=== PATIENT | female | born 1970 | race Two or more races ===

== ENCOUNTER 2021-06-18 09:30 | Outpatient (REF) | payer MEDICAID, SELFPAY ==
--- NOTE | ~2021-06-18 | XR_ITS ---
EXAMINATION: XR SHOULDER, RIGHT CLINICAL INFORMATION: Right shoulder pain. Primary osteoarthritis. COMPARISON: Normal right shoulder x-ray 02/10/2007 TECHNIQUE: AP external rotation, Grashey, scapular Y, and axillary views of the right shoulder. FINDINGS: There is loss of the right glenohumeral joint space without bony erosive changes. No acute fracture, dislocation or subluxation is seen. Mild loss of the AC joint space is seen with periarticular spurring. There is a small enthesophyte along the right greater tuberosity. The soft tissues are normal. XR/XR shoulder RT min 2V IMPRESSION: Mild degenerative changes right shoulder joint without acute fracture or dislocation.
== END 2021-06-18 09:31 | disposition home or self-care (01) ==
LOC: HO.XRAY 09:30
PROVIDERS: PCP Nurse Practitioner Primary Care; Visit Provider Emergency Medicine
DX: M19.011 Primary osteoarthritis, right shoulder (principal)
CPT/HCPCS: 73030

== ENCOUNTER 2021-07-17 10:28 | Outpatient (REF) | payer MEDICAID, SELFPAY ==
--- NOTE | ~2021-07-17 | MR_ITS ---
EXAMINATION: MR SHOULDER WITHOUT CONTRAST, RIGHT CLINICAL INFORMATION: Right shoulder pain. Patient reports decreased range of motion, fell 8 months ago. COMPARISON: XR right shoulder 06/18/2021. TECHNIQUE: MRI of the shoulder without contrast was performed on a high-field scanner. FINDINGS: ROTATOR CUFF: There is a complete or near-complete full-thickness insertional tear of the supraspinatus tendon measuring 2.9 cm transverse. This is difficult to define and measure on the sagittal sequence. The tear likely extends to the anterior fibers of the infraspinatus tendon. There is a full-thickness insertional tear of the distal subscapularis tendon measuring 1.3 cm transverse. This is also difficult to define and measure on the sagittal sequence. The teres minor tendon is intact. There is a small subacromial-subdeltoid bursal effusion. There is mild fatty atrophy of the supraspinatus, infraspinatus, and subscapularis muscles. There is mild edema in the supraspinatus muscle which may be reactive or a mild strain. BICEPS: Completely torn and retracted. CORACOACROMIAL ARCH: The undersurface of the acromion is curved with no subacromial spur. There is mild osteoarthritis of the acromioclavicular joint. LABRUM/CAPSULE: There is diffuse superior labral degeneration, fraying, and tearing. The anterior and posterior labrum are grossly intact. There is inferior capsular thickening. There is patchy intermediate signal abnormality. This is most prominent on the humeral side of the inferior capsule. There is a focal full-thickness tear in the posterior-humeral side of the inferior capsule. GLENOHUMERAL JOINT/MARROW: There are patchy areas of mild cartilage thinning in the glenohumeral joint. There is a curvilinear low signal intensity structure with adjacent intermediate signal intensity in the posterosuperior glenohumeral joint. The appearance suggests an osteochondral fragment. The donor site is uncertain although there is some blunting and irregularity of the posterosuperior margin of the glenoid. MR/MR shoulder RT wo con IMPRESSION: 1. Large complete or near-complete full-thickness insertional tear of the supraspinatus tendon which may extend to the anterior fibers of the infraspinatus tendon. Mild fatty atrophy of the supraspinatus and infraspinatus muscles. Mild edema in the supraspinatus muscle may be reactive or a mild strain. 2. Full-thickness insertional tear of the distal subscapularis tendon. Mild fatty atrophy of the subscapularis muscle. 3. Completely torn and retracted long head of the biceps tendon. 4. Mild osteoarthritis of the acromioclavicular joint. 5. Superior labral degeneration, fraying, and tearing. 6. Inferior capsular thickening, edema, and focal full-thickness tear which may be posttraumatic. 7. Mild glenohumeral arthrosis. Possible osteochondral fragment in the posterosuperior glenohumeral joint. If this is a fragment, donor site is uncertain although there is some blunting and irregularity of the posterosuperior margin of the glenoid. Consider CT scanning for further evaluation.
== END 2021-07-17 10:29 | disposition home or self-care (01) ==
LOC: HO.MRI 10:28
PROVIDERS: Visit Provider Emergency Medicine
DX: M19.011 Primary osteoarthritis, right shoulder (principal); M25.511 Pain in right shoulder
CPT/HCPCS: 73221

== ENCOUNTER → 2021-08-08 14:53 | Outpatient (BNVA) | payer MEDICAID, SELFPAY | PROVIDERS: PCP Nurse Practitioner Primary Care; Visit Provider Physician Assistant | DX: M75.101 Unspecified rotator cuff tear or rupture of right shoulder, not specified as traumatic (principal); M25.511 Pain in right shoulder; Z91.81 History of falling | CPT/HCPCS: 99202 ==

== ENCOUNTER 2021-09-02 14:06 | Outpatient (REF) | payer MEDICAID, SELFPAY ==
--- NOTE | ~2021-09-02 | CT_ITS ---
EXAMINATION: CT SHOULDER WITHOUT CONTRAST, RIGHT CLINICAL INFORMATION: Strain of muscle/fascia/tendon. COMPARISON: Multiple priors, most recent right shoulder MRI dated 07/17/2021. TECHNIQUE: Contiguous axial CT images of the right shoulder were obtained without contrast. Coronal and sagittal reformats were provided and reviewed. This CT examination was performed using dose optimization techniques as appropriate, variously including the following: *Automated exposure control *Adjustment of mA and/or kV according to patient size (this includes techniques or standardized protocols for targeted exams where dose is matched to indication/reason for exam; i.e. extremities or head) *Use of iterative reconstruction technique DLP: 542 mGy-cm FINDINGS: No acute fracture or subluxation. The humeral head is well seated within the glenoid. No osteochondral fragment or associated donor site. No concerning lytic or blastic osseous lesion. Minimal glenohumeral joint space narrowing with tiny marginal osteophytes. Mild acromioclavicular joint space narrowing with small marginal osteophytes. No abnormal soft tissue mass or fluid collection. No significant joint effusion. Rotator cuff tendon tears are better evaluated on the recent MRI. Otherwise, the visualized muscles and tendons are grossly intact. The visualized right lung is clear. CT/CT shoulder RT wo con IMPRESSION: 1. No osteochondral fragment or associated donor site. 2. Mild acromioclavicular and minimal glenohumeral osteoarthritis, similar when compared to the prior MRI. 3. Rotator cuff tendon tears better evaluated on the recent MRI.
== END 2021-09-02 14:07 | disposition home or self-care (01) ==
LOC: HO.CT 14:06
PROVIDERS: Visit Provider Nurse Practitioner Primary Care
DX: M24.111 Other articular cartilage disorders, right shoulder (principal); M25.511 Pain in right shoulder; S46.219A Strain of muscle, fascia and tendon of other parts of biceps, unspecified arm, initial encounter
CPT/HCPCS: 73200

== ENCOUNTER 2022-05-07 12:00 | Outpatient (RCR) | payer MEDICAID, SELFPAY | END 2022-05-15 12:44 | disposition home or self-care (01) | LOC: HO.PT 12:00 | PROVIDERS: PCP Nurse Practitioner Primary Care; Visit Provider Nurse Practitioner Primary Care | DX: M25.511 Pain in right shoulder (principal) | CPT/HCPCS: 97110; 97162 ==

== ENCOUNTER 2023-05-31 11:07 | Emergency (ER) | payer MEDICAID, SELFPAY ==
[2023-05-31 11:14] VITALS: BP 147/82; BP 164/98; PULSE 112; PULSE 84; RESP 16; TEMP 37.2; O2SAT 93; O2SAT 98; BMI 37.7
--- NOTE | 2023-05-31 11:15 | ED_ITS ---
HPI - Extremity Injury (Upper) General Chief Complaint: Extremity Injury, Upper Stated Complaint: L THUMB BLISTER/SWELLING,?'S INFECTION Time Seen by Provider: 05/31/23 11:13 Source: patient, EMS, RN notes reviewed and old records reviewed Mode of arrival: EMS History of Present Illness HPI narrative: 52-year-old female with no significant past medical history presenting to the ED complaining of suspected infection to left thumb s/p picking at open skin 3 days ago. Admits does a lot of skin picking due to anxiety and noted large painful blister with swelling and decreased ROM. Denies injury to area, drainage, fever/chills Related Data Previous Rx's Medication Instructions Recorded cephalexin 500 mg capsule 500 mg PO QID 7 days #28 caps 05/31/23 doxycycline hyclate 100 mg tablet 100 mg PO BID 7 days #14 tabs 05/31/23 Allergies Allergy/AdvReac Type Severity Reaction Status Date / Time No Known Allergies Allergy Verified 05/31/23 11:21 Review of Systems Review of Systems: Constitutional: No Fever, No Chills ENT/Mouth: No Ear Pain, No Nasal Congestion, No sore throat, No Rhinorrhea, No Swallowing Difficulty Cardiovascular: No Chest Pain, No SOB Respiratory: No Cough, No Sputum, No Wheezing Gastrointestinal: No Nausea, No Vomiting, No Diarrhea, No Constipation, No Abdominal pain Musculoskeletal: +joint pain, No Myalgias, +Joint Swelling Skin: + Skin Lesions, No rash Neuro: No Weakness, No Numbness, No Paresthesias Yes all other systems are reviewed and are negative Constitutional: Constitutional: Reports as per [facility] Past Medical History Attestation statement: The following information was validated with the patient. Source: old records reviewed Surgical History History of ear surgery Hx of section Hx of cholecystectomy Hx of hysterectomy Family History Family History Father Diabetes Hypertension Mother No problems noted. Social History Social History Advance Directives: No Physical Exam Vital Signs: Vital Signs: Last Vital Signs Temp 99 F 05/31/23 11:14 Pulse 84 05/31/23 11:14 Resp 16 05/31/23 11:14 BP 147/82 H 05/31/23 11:14 Pulse Ox 93 05/31/23 11:14 O2 Del Method Room Air 05/31/23 11:14 BMI result Body Mass Index 37.7 Const: General: cooperative, healthy appearing and no acute distress Orientation/consciousness: patient oriented x3 Limitations: no limitations HEENT: Head: Yes normal to inspection and Yes atraumatic Ears: hearing grossly normal bilaterally General nose exam: Normal external nose present Face and sinus: Yes normal facial exam Eyes: General: appearance normal, both eyes and all related structures EOM: EOMs intact bilaterally Neck: Neck: Yes normal visual inspection and Yes no meningeal signs Resp: Effort & Inspection: normal respiratory effort and no respiratory distress Auscultation: clear to auscultation bilaterally Cardio: Rate: regular rate Heart sounds: S1 normal heart sound present and S2 normal heart sound present Peripheral pulses: Peripheral pulses 2+ throughout Skin: Rashes: no rashes Neuro: General: patient oriented x3, tone normal and no meningeal signs Cranial nerves: Yes CN's II-XII intact bilaterally Gait exam (Neuro): Normal gait present Extrem: Other: Please refer to images above of left hand. Hematoma with fluctuance noted to 1st digit PIP with surrounding erythema extending to the thenar eminence. Limited ROM to digit secondary to pain/swelling. No warmth. No crepitus. No induration or pointing. General: Yes normal to inspection Course Course Course Narrative: -1255--no leukocytosis. CRP mildly elevated >I&D performed at bedside, on re-evaluation patient with mild lymphangitis extending to distal forearm, marked with marker. Discussed at length return if line keeps spreading. Patient has not yet been on antibiotics, abscess/hematoma drained, no indication for admission at this time Results discussed with patient including worrisome signs and symptoms and strict return precautions, and when to return to the emergency department. They v erbalized understanding and feel safe for discharge at this time. Medications Administered Discontinued Medications Generic Name Dose Route Start Last Admin Trade Name Freq PRN Reason Stop Dose Admin Cephalexin HCl 500 mg 05/31/23 12:58 05/31/23 13:08 Cephalexin 500 Mg Capsule PO 05/31/23 12:59 500 mg ONCE ONE Administration Doxycycline Monohydrate 100 mg 05/31/23 12:58 05/31/23 13:08 Doxycycline Monohydrate 100 Mg Capsule PO 05/31/23 12:59 100 mg ONCE ONE Administration Lidocaine HCl 5 ml 05/31/23 12:25 05/31/23 12:34 Lidocaine Hcl 1 % Mpf 5 Ml Vial INFILTRATI 05/31/23 12:26 5 ml ONCE ONE Administration Medical Decision Making Medical Decision Making [facility] Narrative: 52-year-old female with no significant past medical history presenting to the ED complaining of suspected infection to left thumb s/p picking at open skin 3 days ago. On exam vital signs stable, afebrile, NAD/nontoxic appearing with physical exam as noted above, please refer to images. Concern for infected hematoma vs abscess and cellulitis. Lower suspicion for septic joint/arthritis or osteomyelitis at this time. Low concern for tenosynovitis Plan: Labs, I & D, orthopedic hand follow-up Please refer to course for remaining clinical decision making, interpretation of labs/imaging results, and discussions with consultants and/or family members. Differential Diagnosis Differential Diagnoses: The differential diagnosis associated with the presentation includes As above Admission/Observation Consideration of admission/observation: Escalation of care including admission/observation considered Lab Data [facility] Lab Attestation statement: I reviewed the patient's lab results. 05/31/23 11:36 05/31/23 11:36 Labs: Lab Results 05/31/23 05/31/23 05/31/23 Range/Units 11:36 11:36 11:36 WBC 7.4 (4.8-10.8) X10*3/uL RBC 4.40 (4.20-5.50) X10*6/uL Hgb 12.5 (12.0-16.0) g/dl Hct 38.3 (37.0-47.0) % MCV 87.0 (80.0-98.0) fL MCH 28.4 (27.0-33.0) pg MCHC 32.6 (31.0-35.0) g/dl RDW 13.1 (11.0-16.0) % Plt Count 250 (160-400) X10*3/uL MPV 9.1 L (9.4-12.3) fL Immature Gran % (Auto) 0.3 (0.0-0.4) % Neut % (Auto) 69.0 (45-73) % Lymph % (Auto) 24.3 (20-40) % [place] % (Auto) 5.4 (2-11) % Eos % (Auto) 0.7 (0-4) % Baso % (Auto) 0.3 (0-2) % Lymph # (Auto) 1.8 (1.2-4.9) X10*3/uL [place] # (Auto) 0.4 (0.1-1.2) X10*3/uL Eos # (Auto) 0.1 (0.0-0.4) X10*3/uL Baso # (Auto) 0.0 (0.0-0.2) X10*3/uL Abs Immat Gran (auto) 0.02 (0.00-0.03) X10*3/uL Absolute Neuts (auto) 5.1 (2.0-8.3) x10*3/uL Absolute Nucleated RBC 0.000 (0.0-0.012) X10*3/uL Nucleated RBC % (auto) 0.0 (0.0-0.2) /100WBC ESR 38 H (0-20) MM/HR Sodium 138 (135-145) mmol/L Potassium 3.7 (3.3-5.1) mmol/L Chloride 105 (96-108) mmol/L Carbon Dioxide 25 (22-29) mmol/L Anion Gap 12 (12-20) BUN 10 (9-16) mg/dL Creatinine 0.80 (0.5-1.4) mg/dL Estim Creat Clear Calc 72.8 Estimated GFR > 60 Random Glucose 194 H (60-115) mg/dL Calcium 9.5 (8.4-10.2) mg/dL C-Reactive Protein 1.36 H (< or = 0.50) mg/dL Radiology Impression Discussion of test interpretation with radiology: I have reviewed the radiologist's reading. External Record Review External record reviewed: Inpatient record, Office record, Outpatient record, Prior outpatient labs, Prior outpatient radiology, Primary care record and Outside ED record Tests considered The following testing was considered but not selected: As above Prescription Management I considered prescription management with: Pain Medication and Antibiotic Chronic Conditions Patient?s care impacted by: Other (anxiety) Procedures Abscess I/D Site: hand Side (if applicable): left Local Anesthetic: lidocaine 1% (Digital block) Amount of anesthesia used (mL): 4 Technique: incised with blade Sent for culture/gram staining?: No Irrigation: No Packing used?: none Discharge Plan Discharge Clinical Impression: Infected hematoma, Abscess Patient Disposition: Home, Self-Care Instructions: Abscess (ED), Abscess Follow-up (ED) Additional Instructions: Perform warm compresses at home Your blood work is reassuring. You have an abscess/infected hematoma, doxycycline and Keflex for antibiotics please take as prescribed We marked the infection line spreading on her arm, if this is progressing, you fever/chills, worsening swelling/redness or continue drainage return to the ED You should follow-up with orthopedic hand Prescriptions: New cephalexin 500 mg capsule 500 mg PO QID 7 Days Qty: 28 0RF doxycycline hyclate 100 mg tablet 100 mg PO BID 7 Days Qty: 14 0RF Referrals: [facility] [Provider Group] - 3 days Megan Pathak [employer] [Primary Care Provider] - Interventions: ED Discharge Assessment Last Done: 05/31/23 13:10 Discharge Date/Time: 05/31/23 13:11
[2023-05-31 11:41] LABS: MANUAL DIFF FLAG NO
[2023-05-31 11:58] LABS: Basophils Percent Auto 0.3 % (0-2); Eosinophils Absolute Auto 0.1 X10*3/uL (0.0-0.4); Eosinophils Percent Auto 0.7 % (0-4); Hematocrit 38.3 % (37.0-47.0); Hemoglobin 12.5 g/dl (12.0-16.0); Imm Gran Abs Auto 0.02 X10*3/uL (0.00-0.03); Imm Gran Pct Auto 0.3 % (0.0-0.4); Lymphocytes Absolute Auto 1.8 X10*3/uL (1.2-4.9); Lymphocytes Percent Auto 24.3 % (20-40); Mean Corpuscular HGB Conc 32.6 g/dl (31.0-35.0); Mean Corpuscular Hemoglobin 28.4 pg (27.0-33.0); Mean Platelet Volume 9.1 fL (9.4-12.3); Monocytes Absolute Auto 0.4 X10*3/uL (0.1-1.2); Monocytes Percent Auto 5.4 % (2-11); Neutrophils Absolute Auto 5.1 x10*3/uL (2.0-8.3); Platelet Count 250 X10*3/uL (160-400); Red Cell Distribution Width 13.1 % (11.0-16.0); White Blood Count 7.4 X10*3/uL (4.8-10.8)
[2023-05-31 11:59] LABS: Anion Gap 12 (12-20); Blood Urea Nitrogen 10 mg/dL (9-16); C Reactive Protein 1.36 mg/dL (< or = 0.50); Calcium 9.5 mg/dL (8.4-10.2); Carbon Dioxide 25 mmol/L (22-29); Chloride 105 mmol/L (96-108); Creatinine Clr Calc Pharmacy 72.8; Estimated Glomerular Filt Rate > 60; Glucose Random 194 mg/dL (60-115); Potassium 3.7 mmol/L (3.3-5.1); Sodium 138 mmol/L (135-145)
[2023-05-31] MEDS: Lidocaine HCl 1 % MPF 5 ML VIAL INFILTRATI (12:34)
[2023-05-31 12:57] LABS: Erythrocyte Sedimentation Rate 38 MM/HR (0-20)
[2023-05-31] MEDS: Doxycycline Monohydrate 100 MG CAPSULE PO (13:08)
[2023-05-31] MEDS: cephALEXin 500 MG CAPSULE PO (13:08)
== END 2023-05-31 13:11 | disposition home or self-care (01) ==
PROVIDERS: Physician Assistant; Emergency Provider Emergency Medicine; PCP Nurse Practitioner Primary Care
DX: L02.512 Cutaneous abscess of left hand (principal); L08.9 Local infection of the skin and subcutaneous tissue, unspecified; Z79.899 Other long term (current) drug therapy
CPT/HCPCS: 10060; 36415; 80048; 85025; 85652; 86140; 99282; 99284

== ENCOUNTER 2024-03-22 09:47 | Outpatient (REF) | payer MEDICAID, SELFPAY ==
--- NOTE | ~2024-03-22 | XR_ITS ---
EXAMINATION: XR SHOULDER, RIGHT CLINICAL INFORMATION: Pain in right shoulder. COMPARISON: CT right shoulder 09/02/2021, x-ray right shoulder 06/18/2021. TECHNIQUE: 2 view of the right shoulder. FINDINGS: The bones are diffusely demineralized. Mild degenerative changes in the acromioclavicular joint with joint space narrowing and hypertrophic change. Prominent enthesophyte along the greater tuberosity. No abnormal soft tissue calcifications appreciated adjacent to the humeral head. Mild degenerative changes in the glenohumeral joints. XR/XR shoulder RT min 2V IMPRESSION: Mild degenerative changes in the acromioclavicular and glenohumeral joints.
== END 2024-03-22 09:48 | disposition home or self-care (01) ==
LOC: HO.HOSX 09:47
PROVIDERS: Visit Provider Orthopaedic Surgery
DX: M25.511 Pain in right shoulder (principal)
CPT/HCPCS: 73030; 99202

== ENCOUNTER 2024-03-22 12:48 | Outpatient (AMB) | payer MEDICAID, SELFPAY ==
[2024-03-22 12:50] VITALS: BMI 37.6
--- NOTE | 2024-03-22 12:50 | A.OFFVIS_ITS ---
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 Intake Note: Annette is a 53 year old right hand dominant female who presents today for a new patient visit of right shoulder pain and weakness. The patient states that she fell onto her right shoulder 3 years ago. Since that time she has had difficulty lifting her right hand above shoulder height. She has had injections in the past which gave her minimal relief. She has also been to physical therapy here at [facility] which seemed to aggravate her pain. She has failed the last 6 weeks of conservative treatment. She has tried Tylenol and anti-inflammatory medicines which gave her minimal relief. Accompanied by: Sister Allergies No Known Allergies Allergy (Verified 03/22/24 13:06) Medication List - Last Reconciled 03/22/24 by Vinod Zuniga MD amitriptyline 100 mg PO BEDTIME amlodipine 2.5 mg PO DAILY atorvastatin 80 mg PO BEDTIME blood sugar diagnostic (FreeStyle Lite Strips) As directed hydrocodone-acetaminophen 5-325 mg 1 tab PO Q8H PRN insulin degludec (Tresiba FlexTouch U-100 insulin) 45 units subcut DAILY insulin lispro 10 - 15 units subcut TID losartan 100 mg PO QAM multivitamin (One Daily Multivitamin tablet) 1 tab PO QAM pen needle, diabetic (UltiCare Pen Needle) As directed semaglutide 1 mg subcut QWEEK sertraline 150 mg PO QAM PFSH Surgical History Hx of section Hx of hysterectomy Hx of cholecystectomy History of ear surgery Family History Father Diabetes Hypertension Mother No problems noted. Social History Alcohol intake: never Patient Tobacco Use Status: Current someday Tobacco user Current occupational status: unemployed Physical Exam Vital Signs: BMI result Body Mass Index 37.6 Const Other: Well-nourished well-developed very friendly female awake alert and oriented x3 in no acute distress Extrem Other: Bilateral upper extremity examination shows good capillary refill, no skin lesions noted, normal sensation light touch Right shoulder examination shows decreased active and passive range of motion when compared to her left shoulder, 4+ out of 5 strength with supraspinatus testing, positive impingement signs, tenderness over her acromioclavicular joint , no instability Results Reviewed Results Reviewed: X-rays of the patient's right shoulder show severe acromioclavicular joint narrowing, a type 2 acromion, no acute bony abnormalities Assessment & Plan Assessment & Plan (1) Right shoulder pain: Code(s): M25.511 - Pain in right shoulder Category: Medical Plan Ms. Kim presents with progressively worsening right shoulder pain and weakness most likely due to a full-thickness rotator cuff tear. Thus, I will send the patient for an MRI of her right shoulder for further evaluation. I will see her back once the MRI is completed to discuss the findings and treatment options. She will continue with her range of motion exercises in the meantime. Feel free to call me at any time should questions regarding her orthopedic management arise. Thank you very much for asking me to see this very friendly patient. I spent 20 minutes in reviewing the patient's records and imaging studies, seeing the patient and documenting in the medical record. Orders: Orders XR shoulder RT min 2V Today M25.511 - Pain in right shoulder MR shoulder RT wo con Today M25.511 - Pain in right shoulder Medications: Discontinued cephalexin Discontinued Reason: Patient Completed Course 500 mg PO QID 7 days 28 caps 0RF doxycycline hyclate Discontinued Reason: Patient no longer taking 100 mg PO BID 7 days 14 tabs 0RF Coding Level of Care Code New Pt Level 3 (17486) Diagnoses Right shoulder pain M25.511
[2024-03-22 13:02] VITALS: BMI 37.6
== END 2024-03-22 13:18 | disposition home or self-care (01) ==
PROVIDERS: PCP Nurse Practitioner Primary Care; Visit Provider Orthopaedic Surgery
DX: M25.511 Pain in right shoulder (principal)
CPT/HCPCS: 99204

== ENCOUNTER 2024-05-04 19:19 | Outpatient (REF) | payer MEDICAID, SELFPAY ==
--- NOTE | ~2024-05-04 | MR_ITS ---
EXAMINATION: MR SHOULDER WITHOUT CONTRAST, RIGHT CLINICAL INFORMATION: Right shoulder pain. COMPARISON: MRI 07/17/2021. TECHNIQUE: MRI of the shoulder without contrast was performed on a high-field scanner. FINDINGS: ROTATOR CUFF: The supraspinatus tendon is completely torn and retracted beyond the apex of the humeral head. Near complete tearing of the infraspinatus tendon with some superficial-most posterior fibers remaining intact. This is similar to the previous study. Ill-defined undersurface partial tearing of the distal subscapularis tendon has progressed. Moderate muscle atrophy and mild fatty infiltration of the supraspinatus and infraspinatus muscles, minimally progressed. BICEPS: The biceps tendon is completely torn and retracted. CORACOACROMIAL ARCH: The undersurface of the acromion is curved with no subacromial spur. There is degenerative cyst formation and marrow edema with surrounding soft tissue edema at the origin of the lateral deltoid muscle, which is a new finding. Mild acromioclavicular osteoarthritis. LABRUM/CAPSULE: Degeneration/fraying of the posterior superior labrum. GLENOHUMERAL JOINT/MARROW: Small glenohumeral joint effusion. Small marginal osteophytes along the humeral head and neck junction and spurring of the greater tuberosity anteriorly. The humeral head is slightly subluxed posteriorly and superiorly. MR/MR shoulder RT wo con IMPRESSION: Completely torn and retracted supraspinatus tendon and near complete tearing of the infraspinatus tendon with moderate muscle atrophy and mild fatty infiltration, similar to the previous study. Ill-defined undersurface partial tearing of the distal subscapularis tendon has progressed. Completely torn and retracted biceps tendon. Mild acromioclavicular and glenohumeral joint osteoarthritis with a small joint effusion. There is reactive cyst formation with marrow edema and adjacent soft tissue edema at the lateral aspect of the acromion, at the lateral deltoid origin, which is a new finding.
== END 2024-05-04 19:20 | disposition home or self-care (01) ==
LOC: HO.MRI 19:19
PROVIDERS: PCP Nurse Practitioner Primary Care; Visit Provider Orthopaedic Surgery
DX: M25.511 Pain in right shoulder (principal)
CPT/HCPCS: 73221

== ENCOUNTER 2024-08-10 11:21 | Outpatient (AMB) | payer MEDICAID, SELFPAY ==
[2024-08-10 11:23] VITALS: BMI 37.6
--- NOTE | 2024-08-10 11:23 | A.OFFVIS_ITS ---
Vital Signs 08/10/24 11:23 Height 4 ft 9 in Weight 174 lb BMI 37.6 Intake Visit Reasons: OV-MRI Right shoulder Follow up Intake Note: Annette is a 53 year old right hand dominant female who presents today for a new patient visit of right shoulder pain and weakness. The patient states that she fell onto her right shoulder 3 years ago. Since that time she has had diffic ulty lifting her right hand above shoulder height. She has had injections in the past which gave her minimal relief. She has also been to physical therapy here at [facility] which seemed to aggravate her pain. She has failed the last 6 weeks of conservative treatment. She has tried Tylenol and anti-inflammatory medicines which gave her minimal relief. Allergies No Known Allergies Allergy (Verified 08/10/24 11:24) Medication List - Last Reconciled 08/10/24 by Vinod Zuniga MD amitriptyline 100 mg PO BEDTIME amlodipine 2.5 mg PO DAILY atorvastatin 80 mg PO BEDTIME blood sugar diagnostic (FreeStyle Lite Strips) As directed hydrocodone-acetaminophen 5-325 mg 1 tab PO Q8H PRN insulin degludec (Tresiba FlexTouch U-100 insulin) 45 units subcut DAILY insulin lispro 10 - 15 units subcut TID losartan 100 mg PO QAM multivitamin (One Daily Multivitamin tablet) 1 tab PO QAM pen needle, diabetic (UltiCare Pen Needle) As directed semaglutide 1 mg subcut QWEEK sertraline 150 mg PO QAM PFSH Surgical History Hx of section Hx of hysterectomy Hx of cholecystectomy History of ear surgery Family History Father Diabetes Hypertension Mother No problems noted. Social History (Updated 03/22/24 @ 13:12 by ONOFRE Penn) Alcohol intake: never Patient Tobacco Use Status: Current someday Tobacco user Current occupational status: unemployed Physical Exam Vital Signs: BMI result Body Mass Index 37.6 Const Other: Well-nourished well-developed very friendly female awake alert and oriented x3 in no acute distress Extrem Other: Right shoulder examination shows full passive range of motion but decreased active range of motion when compared to her left shoulder, 3/5 strength with supraspinatus testing, positive impingement signs, no instability Results Reviewed Results Reviewed: MRI of the patient's right shoulder shows a full-thickness tear of the supraspinatus tendon with retraction jail to the glenoid lip, moderate supraspinatus muscle atrophy Assessment & Plan Assessment & Plan (1) Right shoulder pain: Code(s): M25.511 - Pain in right shoulder Category: Medical Plan Ms. Kim presents with progressively worsening right shoulder pain and weakness due to a large rotator cuff tear. I had a lengthy discussion with the patient regarding the treatment options. At this point she has failed continued non operative treatments. The patient may be a candidate for rotator cuff repair with a surgical patch or possible reverse total shoulder replacement surgery. Thus, I will have her meet with my partner, Dr. Carr, for further information regarding these surgical options. She will continue with her [id number] exercises in the meantime. Feel free to call me at any time should questions regarding her orthopedic management arise. I spent 22 minutes in reviewing the patient's records and imaging studies, seeing the patient and documenting in the medical record. Coding Level of Care Code Est Pt Level 3 (39513) Complex EM visit Add On G2211 Diagnoses Right shoulder pain M25.511
== END 2024-08-10 11:45 | disposition home or self-care (01) ==
LOC: HO.HOS 11:21
PROVIDERS: PCP Nurse Practitioner Primary Care; Visit Provider Orthopaedic Surgery
DX: M25.511 Pain in right shoulder (principal)
CPT/HCPCS: 99213

== ENCOUNTER → 2024-08-10 11:21 | Outpatient (BNVA) | payer MEDICAID, SELFPAY | PROVIDERS: PCP Nurse Practitioner Primary Care; Visit Provider Orthopaedic Surgery | DX: M25.511 Pain in right shoulder (principal) | CPT/HCPCS: 99212 ==

== ENCOUNTER 2024-08-25 10:12 | Outpatient (AMB) | payer MEDICAID, SELFPAY ==
[2024-08-25 10:15] VITALS: BMI 37.6
--- NOTE | 2024-08-25 10:15 | MHC.OFFVIS ---
Vital Signs 08/25/24 10:15 Height 4 ft 9 in Weight 174 lb BMI 37.6 Intake Visit Reasons: OV- Right RTC Tear- Discuss Surgery per Dr. Zuniga Intake Note: Annette is a 53 year old right hand dominant female who presents today for a follow up of her right shoulder. She was last seen with Dr. Zuniga who referred her to discuss possible rotator cuff repair. Patient reports that she injured the shoulder about 3 years ago when she fell. Limited and painful ROM above shoulder height. Tried and Failed Physical Therapy. Uncontrolled DM Allergies No Known Allergies Allergy (Verified 08/25/24 10:15) HPI HPI OV- Right RTC Tear- Discuss Surgery per Dr. Zuniga: Details: Annette is a 53 year old right hand dominant female who presents today for a follow up of her right shoulder. She was last seen with Dr. Zuniga who referred her to discuss possible rotator cuff repair. Patient reports that she injured the shoulder about 4-5 years ago when she fell. Limited and painful ROM above shoulder height. Tried and Failed Physical Therapy. Uncontrolled DM PFSH Surgical History Hx of section Hx of hysterectomy Hx of cholecystectomy History of ear surgery Family History Father Diabetes Hypertension Mother No problems noted. Social History Alcohol intake: never Patient Tobacco Use Status: Current someday Tobacco user Current occupational status: unemployed Physical Exam Vital Signs: BMI result Body Mass Index 37.6 Extrem Other: She can not get her hand to the back of her head. She can slowly abduct her arm to about 60-70 degrees with scapular recruitment. Positive drop-arm test Results Reviewed Results Reviewed: I personally reviewed the MR images. IMPRESSION: 1.Completely torn and retracted supraspinatus tendon and near complete tearing of the infraspinatus tendon with moderate muscle atrophy and mild fatty infiltration, similar to the previous study. 2. Ill-defined undersurface partial tearing of the distal subscapularis tendon has progressed. 3. Completely torn and retracted biceps tendon. 4. Mild acromioclavicular and glenohumeral joint osteoarthritis with a small joint effusion. 5. There is reactive cyst formation with marrow edema and adjacent soft tissue edema at the lateral aspect of the acromion, at the lateral deltoid origin, which is a new finding. Assessment & Plan Assessment & Plan (1) Rotator cuff arthropathy of right shoulder: Code(s): M12.811 - Other specific arthropathies, not elsewhere classified, right shoulder Category: Medical Plan: This is a 54-year-old with severe rotator cuff arthropathy of the right shoulder. There is no hope of repairing this. She is young and has diabetes which is questionably well controlled although she has recently started a semaglutide so I anticipate this will improve. I discussed treatment options including surgery. I described the details of a reverse total shoulder arthroplasty in the risks, benefits and alternatives. She will think about it and let me know. My recommendation is that she avoid overhead lifting and wait for surgery until she is older or has more pain. Coding Level of Care Code Est Pt Level 4 (96774) Diagnoses Rotator cuff arthropathy of right shoulder M12.811
== END 2024-08-25 10:55 | disposition home or self-care (01) ==
PROVIDERS: PCP Nurse Practitioner Primary Care; Visit Provider Orthopaedic Surgery
DX: M12.811 Other specific arthropathies, not elsewhere classified, right shoulder (principal)
CPT/HCPCS: 99214

== ENCOUNTER → 2024-08-25 10:12 | Outpatient (BNVA) | payer MEDICAID, SELFPAY | PROVIDERS: PCP Nurse Practitioner Primary Care; Visit Provider Orthopaedic Surgery | DX: M12.811 Other specific arthropathies, not elsewhere classified, right shoulder (principal) | CPT/HCPCS: 99212 ==

== ENCOUNTER 2024-11-21 14:47 | Outpatient (REF) | payer MEDICAID, SELFPAY ==
--- OUTSIDE RECORDS SUMMARY | 2024-11-21 15:38 | XMS_ITS | Encounter Summary ---
Author Organization [employer] Address [address] [place] [address] [address] [place] [address] Care Team Providers Care Investment Executive Name Role Phone Goreg Hendrix Primary Care Provider [phone] Reason for Referral * Consultation (Routine) - Closed Specialty Diagnoses / Procedures Referred By Contvernell t Referred To Contact Podiatry Diagnoses Type 2 diabetes mellitus with hyperlipidemia (CMS/HCC) ([facility]/HCC) Gorge Hendrix ANP [address] [place] [address] Phone: tel: fax: Referral ID Status Reason Start Date Expiration Date V isits Requested Visits Authorized [id number] Closed Specialty Services Required 11/10/2024 11/10/2025 1 1 Reason for Visit * Reason Comments Follow-up Encounter Details Date Type Department Care Team (Latest Contact Info) Description 09/18/2024 3:00 PM EST Office Visit [facility] [address], [place] [phone] Gorge Hendrix ANP [address] [place], [place] [phone] Encounter for immunization (Primary Dx); Type 2 diabetes mellitus with hyperlipidemia (CMS/HCC) (CMS/HCC); Type 2 diabetes mellitus with other specified complication (CMS/HCC); [facility] (current) use of opiate analgesic Social History Tobacco Use Types Packs/Day Years Used Date Smoking Tobacco: Former Cigarettes Smokeless Tobacco: Never Tobacco Cessation:Counseling Given: Not Answered Alcohol Use Standard Drinks/Week Comments Never 0 (1 standard drink = 0.6 oz pur e alcohol) Alcohol Answer Date Recorded Frequency of Alcohol Consumption Not on file 12/07/2023 Average Number of Drinks Not on file 024 Frequency of Binge Drinking Not on file 11/12 Score 0 12/07/2023 Depression Answer Date Recorded Patient Health Questionnaire-9 Score 2 02/03/2024 Patient Health Questionnaire-9 Score 2 02/03/2024 Last PHQ-9: Questionnaire Data Not on file 0 02/03/2024 Housing Stability Answer Date Recorded What is your housing situation today? I have housing today, but I am worried about losing housing in the future 01/12/[address] you li ve. Do you have problems with any of the following? None of the above 01/12/2024 Food Insecurity Answer Date Recorded Within the past 12 months, y ou worried that your food would run out before you got money to buy more: Never True 12/07/2023 Within the past 12 months,th e food you bought just didn't last and you didn't have enough money to get more: Never True Transportation Answer Date Recorded In the past 12 months, has l ack of transportation kept you from medical appts, meetings, work or from getting things needed for daily living? No 12/07/2023 Utilities Answer Date Recorded In the past 12 months, has t he electric, gas, oil or water company threatened to shut off services in your home? No 12/07/2023 Depression Answer Date Recorded Patient Health Questionnaire-2 Score 0 02/03/2024 Comments Unknown Sex and Gender Information Value Date Recorded Sex Assigned at Female 08/10/2022 10:27 AM EDT Legal Sex Female 10:27 AM EDT Gender Identity Female 08/10/2022 10:27 AM EDT Sexual Orientation Straight 08/10/2022 10 :27 AM EDT documented as of this encounter Last Filed Vital Signs Vital Sign Reading Time Taken Comments Blood Pressure 136/78 09/18/2024 3:00 PM EST Pulse 94 09/18/2024 3:00 PM EST Temperature 36.6 ??C (97.9 ??F) 09/18/2024 3:00 PM ES T Respiratory Rate 16 09/18/2024 3:00 PM EST Oxygen Saturation 98% 09/18/2024 3:00 PM EST Inhaled Oxygen Concentration - - Weight 78.8 kg (173 lb 12.8 oz) 09/18/2024 3:00 PM EST Height - - Body Mass Index 37.61 12/07/2023 9:25 AM EST documented in this encounter Patient Instructions * Patient Instructions* ERLINDA Banks - 09/18/2024 3:00 PM EST Your A1c today was 6.1% This is incredible!!! Great job! Please reschedule your eye care appointment. Plan will be to: Max out ozempic dose: the next time you get it from pharmacy it will be a higher dose. When you receive this, decrease your Tresiba to 36 units once daily. Keep an eye on your blood sugars and if your blood sugars are well controlled, we can consider stopping your mealtime insulin (Humalog). documented in this encounter Progress Notes * ERLINDA Banks - 09/18/2024 3:00 PM EST SUBJECTIVE: Annette Kim is a 54 y.o. year old female who presents for chronic disease management. Denies recent illness, injury, or hospitalization. PMH anxiety, major depression, memory impairment, type 2 diabetes with hyperlipidemia and hypertension, CKD 3, chronic back pain on long-term opiate analgesic, chronic right shoulder pain Acute Concerns: BG has been really good. Her A1c is 6.1% today - down from 11.5!!! Has had some lows to 68. Feels good. Depression and memory are about the same. Taking tresiba 45 units, humalog on sliding scale, ozempic 1mg wkly, Jardiance 10 mg. She is on atorvastatin, Zetia, losartan Plan will be to increase ozempic, decrease tresiba by 20%, consider stopping mealtime insulin Lab Results Component Value Date HGBA1C 11.5 (A) 03/13/2024 HGBA1C 10.9 (A) 12/07/2023 HGBA1C 9.7 (H) 05/03/2020 HGBA1C 9.7 (H) 05/03/2020 HGBA1C 9.7 (H) 05/03/2020 Lives w/ daughter and niece. Sister helps with foot care. Is walking more incl on treadmill at home and this is helping her BG and her back. Former smoker Social History Social History Narrative Not on file Patient Active Problem List Diagnosis Anxiety Type 2 diabetes mellitus with hyperlipidemia (CMS/HCC) ([facility]) Essential hypertension Hyperlipidemia Stage 3 chronic kidney disease ([facility]) Major depressive disorder, recurrent, severe with psychotic features ([facility]) Memory problem Chronic back pain greater than 3 months duration Arthritis of spine Rotator cuff tear, right Sensorineural hearing loss (SNHL) of both ears Status post hysterectomy Status post cholecystectomy Status post tonsillectomy No past surgical history on file. No family history on file. Review of Systems Constitutional: Negative for chills and fever. HENT: Negative for sore throat. Eyes: Negative for visual disturbance. Respiratory: Negative for cough and shortness of breath. Cardiovascular: Negative for chest pain. Gastrointestinal: Negative for constipation and diarrhea. Endocrine: Negative for polydipsia, polyphagia and polyuria. Genitourinary: Negative for dysuria. OBJECTIVE: Vitals: 09/18/24 1500 BP: 136/78 BP Location: Left arm Patient Position: Sitting BP Cuff Size: Adult Pulse: 94 Resp: 16 Temp: 97.9 ??F (36.6 ??C) TempSrc: Temporal SpO2: 98% Weight: 173 lb 12.8 oz (78.8 kg) Physical Exam Vitals reviewed. Constitutional: General: She is not in acute distress. Appearance: Normal appearance. She is not ill-appearing. HENT: Head: Normocephalic and atraumatic. Mouth/Throat: Comments: Edentulous Eyes: General: No scleral icterus. Extraocular Movements: Extraocular movements intact. Pupils: Pupils are equal, round, and reactive to light. Cardiovascular: Rate and Rhythm: Normal rate and regular rhythm. Pulses: Dorsalis pedis pulses are 2+ on the right side and 2+ on the left side. Posterior tibial pulses are 2+ on the right side and 2+ on the left side. Pulmonary: Effort: Pulmonary effort is normal. No accessory muscle usage or respiratory distress. Musculoskeletal: Right foot: Normal range of motion. No deformity, bunion, Charcot foot or prominent metatarsal heads. Left foot: Normal range of motion. No deformity, bunion, Charcot foot or prominent metatarsal heads. Feet: Right foot: Protective Sensation: 7 sites tested. 7 sites sensed. Skin integrity: Skin integrity normal. No ulcer, blister, skin breakdown, erythema, warmth, callus or dry skin. Toenail Condition: Right toenails are normal. Left foot: Protective Sensation: 7 sites tested. 7 sites sensed. Skin integrity: Skin integrity normal. No ulcer, blister, skin breakdown, erythema, warmth, callus or dry skin. Toenail Condition: Left toenails are normal. Neurological: Mental Status: She is alert and oriented to person, place, and time. Psychiatric: Mood and Affect: Mood normal. Behavior: Behavior normal. ASSESSMENT/PLAN Annette was seen today for follow-up. Diagnoses and all orders for this visit: Type 2 diabetes mellitus with hyperlipidemia (CMS/[facility]) ([facility]) A1c today is 6.1! This is down from over 11! Congratulated heartily on her progress. She has workedvery hard with diet and medication compliance. She is trying to exercise more with treadmill and walking outside. She does require assistance from her niece or her daughter and visiting nurses to achieve this goal and for ADLs. Foot exam 09/18/2024 normal with some mild toenail thickening Asked her to please reschedule her eye care appointment taking tresiba 45 units, humalog on sliding scale, ozempic 1mg wkly, Jardiance 10 mg. She is on atorvastatin, Zetia, losartan. Plan will be to increase ozempic, decrease tresiba by 20%, consider stopping mealtime insulin. Follow Up: 3 mo or sooner prn Current Outpatient Medications on File Prior to Visit Medication Sig Dispense Refill amitriptyline (Elavil) 150 MG tablet Take 1 tablet (150 mg) by mouth at bedtime. 90 tablet 1 amLODIPine (Norvasc) 10 MG tablet TAKE 1 TABLET BY MOUTH EVERY MORNING 90 tablet 1 atorvastatin (Lipitor) 80 MG tablet TAKE 1 TABLET BY MOUTH AT BEDTIME 90 tablet 3 Blood Pressure kit 1 kit Once per day. 1 kit 0 Continuous Glucose Hydraulic Technician (FreeStyle Marie 2 [place]) device Scan sensor every 8 hours 1 each 0 Continuous Glucose Sensor (FreeStyle Marie 2 Sensor) misc Apply 1 sensor every 14 days 2 each 11 Easy Touch Pen [place] 31G X 8 MM misc USE DIRECTED FOUR TIMES DAILY 100 each 11 Emollient (Eucerin Original Healing) lotion use twice daily to hands empagliflozin (Jardiance) 10 MG Take 1 tablet (10 mg) by mouth Once per day. 30 tablet 11 ezetimibe (Zetia) 10 MG tablet TAKE 1 TABLET BY MOUTH AT BEDTIME 90 tablet 3 FREESTYLE LITE test strip TEST BLOOD SUGAR 3 TIMES A DAY 100 strip 5 glucose blood (FreeStyle Precision Nicola Test) test strip Use to test blood sugar 5 times daily 100 each 12 HYDROcodone-acetaminophen ([place]) 5-325 MG tablet Take 1 tablet by mouth every 8 (eight) hours if needed for severe pain for up to 28 days. 84 tablet 0 insulin lispro (HumaLOG) 100 UNIT/ML injection INJECT 10-15 UNITS SUBCUTANEOUSLY THREE TIMES DAILY WITH MEALS PER SLIDING SCALE: CN901-151=1 UNITS, 201-250=8 UNITS, 251-300=10 UNITS, 301-350=12 UNITS, 351-400=14 UNITS, >401=16 UNITS 15 mL 3 losartan (Cozaar) 100 MG tablet TAKE 1 TABLET BY MOUTH EVERY MORNING 90 tablet 3 Multiple Vitamin (Multivitamin) tablet TAKE 1 TABLET BY MOUTH EVERY MORNING WITH FOOD 90 tablet 3 naloxone (Narcan) 4 mg/0.1 mL nasal spray Administer 1 spray (4 mg) into affected nostril(s) if needed for opioid reversal. 2 each 2 QUEtiapine (SEROquel) 25 MG tablet Take 1 tablet (25 mg) by mouth at bedtime. 90 tablet 3 sertraline (Zoloft) 100 MG tablet Take 1.5 tablets (150 mg) by mouth Once per day. 135 tablet 3 Tresiba FlexTouch 100 UNIT/ML injection INJECT 45 UNITS SUBCUTANEOUSLY EVERY DAY DIRECTED 15 mL 2 triamcinolone (Kenalog) 0.1 % cream Apply topically 2 times daily. 30 g 2 TRUEplus Lancets 33G misc TEST BLOOD SUGAR 3 TIMES A DAY 100 each 11 [DISCONTINUED] semaglutide (Ozempic) 2 MG/1.5ML solution pen-injector Inject 1 mg under the skin 1 (one) time per week. 2 each 12 No current facility-administered medications on file prior to visit. documented in this encounter Miscellaneous Notes * Addendum Note - ERLINDA Banks - 09/18/2024 3:00 PM ESTAddended by: GORGE HENDRIX on: 11/10/2024 11:15 AM Modules accepted: Orders documented in this encounter Plan of Treatment Upcoming Encounters Date Type Department Care Team (Late st Contact Info) Description 12/29/2024 11:00 AM EDT Clinical Support [facility] [address] [place] [address] Giovana Sal, GLORY [address] [place] [address] 02/20/2025 2:30 PM EDT Office Visit [facility] [address] [place] [address] KevinValentina mcgraw, OD [address] [place] [address] Scheduled Referrals Name Type Priority Associated Diagnoses Orde r Schedule Referral to Podiatry Outpatient Referral Routine Type 2 diabetes mellitus with hyperlipidemia (CMS/HCC) ([facility]) Expected: 11/10/2024 (Approximate), Expires: 11/10/2025 documented as of this encounter Procedures Procedure Name Priority Date/Time Associated Diagnosis Comments POCT GLYCATED HEMOGLOBIN, TOTAL Routine 09/18/2024 4:04 PM EST Type 2 diabetes mellitus with hyperlipidemia (CMS/HCC) ([facility]) POCT GLUCOSE Routine 09/18/2024 4:03 PM EST Type 2 diabetes mellitus with hyperlipidemia (CMS/HCC) ([facility]) documented in this encounter Results * (ABNORMAL) POCT HGB A1C (09/18/2024 4:04 PM EST) Hemoglobin A1C 6.1(A) 4.0 - 6.0 % QC Media Lot # [id number] Lot# Expiration Date [id number] Blood 09/18/2024 4:04 PM EST Gorge COFFEY POINT OF CARE TEST ENTER/EDIT OR DERABLES Final Result * POCT Glucose (09/18/2024 4:03 PM EST) Glucose Blood, POC 166 60 - 200 mg/dL QC Media Lot # [id number] Lot# Expiration Date [id number] Blood Capillary blood specimen / Unknown 09/18/2024 4:03 PM EST Gorge COFFEY POINT OF CARE TEST ENTER/EDIT OR DERABLES Final Result documented in this encounter Visit Diagnoses Diagnosis Encounter for immunization- Primary Type 2 diabetes mellitus with hyperlipidemia (CMS/HCC) (CMS/HCC) Type 2 diabetes mellitus with other specified complication (CMS/HCC) director credit risk (current) use of opiate analgesic documented in this encounter Additional Health Concerns Assessment Noted Time PHQ-9 Depression Total Score: 2 02/03/20 24 4:00 PM EDT documented as of this encounter Care Teams Investment Executive Relationship Specialty Start Date End Date Gorge Hendrix ANP [address] [place] [address] PCP - General Family Medicine 02/28/20 [employer] 03/23/24 documented as of this encounter
--- OUTSIDE RECORDS SUMMARY | 2024-11-21 15:38 | XMS_ITS | Encounter Summary ---
Author Organization [employer] Address [address] [place] [address] [address] [place] [address] Care Team Providers Care Ham Sawyer Name Role Phone Megan Pathak ERLINDA Primary Care Provider [phone] Encounter Details Date Type Department Care Team (Late Contact Info) Description 04/19/2023 Orders Only [facility] [address] [place], [place] [phone] Alley Yan LPN Social History Tobacco Use Types Packs/Day Years Used Date Smoking Tobacco: Never Assessed Depression Answer Date Recorded Patient Health Questionnaire-9 Score 1 04/12/2023 Depression Answer Date Recorded Patient Health Questionnaire-2 Score 0 04/12/2023 Comments Unknown Sex and Gender Information Value Date Recorded Sex Assigned at Female 08/10/2022 10:27 AM EDT Legal Sex Female 10:27 AM EDT Gender Identity Female 08/10/2022 10:27 AM EDT Sexual Orientation Straight 08/10/2022 10 :27 AM EDT documented as of this encounter Plan of Treatment Upcoming Encounters Date Type Department Care Team (Late Contact Info) Description 12/29/2024 11:00 AM EDT Clinical Support [facility] [address] [place] [address] Giovana Sal, RN [address] [place] [address] 02/20/2025 2:30 PM EDT Office Visit [facility] [address] [place] [address] Valentina Brown, OD [address] [place] [address] documented as of this encounter Visit Diagnoses Not on filedocumented in this encounter Additional Health Concerns Assessment Noted Time PHQ-9 Depression Total Score: 1 04/12/20 23 11:19 AM EDT documented as of this encounter Care Teams Ham Sawyer Relationship Specialty Start Date End Date Megan Pathak ANP [address] [place] [address] PCP - General Family Medicine 02/28/20 [employer] 03/23/24 documented as of this encounter
--- OUTSIDE RECORDS SUMMARY | 2024-11-21 15:38 | XMS_ITS | Encounter Summary ---
Author Organization [employer] Address [address] [facility] [address] [place] [address] Care Team Providers Care Biodiesel Technology Manager Name Role Phone Megan Pathak Primary Care Provider [phone] Reason for Visit * Reason Onset Date Comments Med Refill 09/04/2024 Encounter Details Date Type Department Care Team ([facility] Contact Info) Description 09/04/2024 Telephone [facility] [address] [place], [place] [phone] Megan Pathak ANP [address] [place], [place] [phone] Med Refill Social History Tobacco Use Types Packs/Day Years Used Date Smoking Tobacco: Never Smokeless Tobacco: Never Alcohol Use Standard Drinks/Week Comments Never 0 [...] AM EDT documented as of this encounter Miscellaneous Notes * Telephone Encounter - Boris Christianson - 09/04/2024 11:08 AM EST TC from pt requesting medication refill. Medications needing refill: HYDROcodone-acetaminophen ([place]) 5-325 MG tablet To be sent to: [facility] - [place], [place] - [address] [place] [address] documented in this encounter Plan of Treatment Upcoming Encounters Date Type Department Care Team ([facility] Contact Info) Description 12/29/2024 11:00 AM EDT Clinical Support [facility] [address] [place] [address] Giovana Sal, GLORY [address] [place] [address] 02/20/2025 2:30 PM EDT Office Visit [facility] OPTOM[facility]RY [address] [place] [address] Valentina Brown, OD [address] [place] [address] documented as of this encounter Visit Diagnoses Not on filedocumented in this encounter Additional Health Concerns Assessment Noted Time PHQ-9 Depression Total Score: 2 02/03/20 24 4:00 PM EDT documented as of this encounter Care Teams Biodiesel Technology Manager Relationship Specialty Start Date End Date Megan Pathak ANP [address] [place] [address] PCP - General Family Medicine 02/28/20 [employer] 03/23/24 documented as of this encounter
--- OUTSIDE RECORDS SUMMARY | 2024-11-21 15:38 | XMS_ITS | Encounter Summary ---
Author Organization [employer] Address [address] [place] [address] [address] [place] [address] Care Team Providers Care Celery Packer Name Role Phone Megan Pathak Primary Care Provider [phone] Reason for Visit * Reason Comments Med Refill Encounter Details Date Type Department Care Team (Late st Contact Info) Description 02/03/2023 Refill [facility] [address] [place], [place] [phone] Megan Pathak ANP [address] [place], [place] [phone] Chronic back pain greater than 3 months duration Social History Tobacco Use Types Packs/Day Years Used Date Smoking Tobacco: Never Assessed Comments Unknown Sex and Gender Information Value Date Recorded Sex Assigned at Female 08/10/2022 10:27 AM EDT Legal Sex Female 10:27 AM EDT Gender Identity Female 08/10/2022 10:27 AM EDT Sexual Orientation Straight 08/10/2022 10 :27 AM EDT COVID-19 Exposure Response Date Recorded In the last 10 days, have yo u been in contact with someone who was confirmed or suspected to have Coronavirus/COVID-19? No / Unsure 01/18/2023 11:56 AM EDT documented as of this encounter Plan of Treatment Upcoming Encounters Date Type Department Care Team (Late st Contact Info) Description 12/29/2024 11:00 AM EDT Clinical Support [facility] MEDICINE [address] [place] [address] Giovana Sal, GLORY [address] [place], [place] [phone] 02/20/2025 2:30 PM EDT Office Visit [facility] OPTOMETRY [address] [place] [address] Valentina Brown OD [address] [place], [place] [phone] documented as of this encounter Visit Diagnoses Diagnosis Chronic back pain greater than 3 months duration documented in this encounter Additional Health Concerns Assessment Noted Time PHQ-9 Depression Total Score: 5 01/05/20 23 11:10 AM EDT documented as of this encounter Care Teams Celery Packer Relationship Specialty Start Date End Date Megan Pathak ANP [address] [place], [place] [phone] PCP - General Family Medicine 02/28/20 [employer] 03/23/24 documented as of this encounter
--- OUTSIDE RECORDS SUMMARY | 2024-11-21 15:38 | XMS_ITS | Encounter Summary ---
Author Organization [employer] Address [address] [place] [address] [address] [place] [address] Care Team Providers Care Marketing Technologist Name Role Phone Megan Pathak ERLINDA Primary Care Provider [phone] Encounter Details Date Type Department Care Team (Late st Contact Info) Description 03/30/2023 Orders Only [facility] [address] [place], [place] [phone] Alley Yan LPN Social History Tobacco Use [...] Description 12/29/2024 11:00 AM EDT Clinical Support [facility] [address] [place] [address] Giovana Sal, GLORY [address] [place] [address] 02/20/2025 2:30 PM EDT Office Visit [facility] OPTOMETRY [address] [place] [address] Valentina Brown, OD [address] [place] [address] documented as of this encounter Visit Diagnoses Not on filedocumented in this encounter Additional Health Concerns Assessment Noted Time PHQ-9 Depression Total Score: 2 02/16/20 23 10:10 AM EDT documented as of this encounter Care Teams Marketing Technologist Relationship Specialty Start Date End Date Megan Pathak ANP [address] [place] [address] PCP - General Family Medicine 02/28/20 [employer] 03/23/24 documented as of this encounter
--- OUTSIDE RECORDS SUMMARY | 2024-11-21 15:39 | XMS_ITS | Clinical Summary ---
Author Organization [employer] Address [address] [place] [address] Care Team Providers Care County Manager Name Role Phone Megan Pathak ERLINDA Primary Care Provider [phone] Allergies Active Allergy Reactions Criticality Noted Date Comments Clindamycin Nausea Only Medium 08/18/2022 Nausea Heartburn Other reaction(s): Heartburn Medications * This document contains information received from the source organization and may not represent a complete record from that organization. Emollient (Eucerin Original Healing) lotion use twice daily to hands 022 Active TRUEplus Lancets 33G misc TEST BLOOD SUGAR 3 TIMES A DAY 100 each 11 023 Active FREESTYLE LITE test strip TEST BLOOD SUGAR 3 TIMES A DAY 100 strip 5 024 Active losartan (Cozaar) 100 MG tabletIndication s:Essential hypertension TAKE 1 TABLET BY MOUTH EVERY MORNING 90 tablet 3 024 Active triamcinolone (Kenalog) 0.1 % creamIndications :Rash Apply topically 2 times daily. 30 g 2 024 Active QUEtiapine (SEROquel) 25 MG tabletIndication s:Major depressive disorder, recurrent, severe with psychotic features (CMS/HCC) Take 1 tablet (25 mg) by mouth at bedtime. 90 tablet 3 024 Active sertraline (Zoloft) 100 MG tabletIndication s:Major depressive disorder, recurrent, severe with psychotic features (CMS/HCC) Take 1.5 tablets (150 mg) by mouth Once per day. 135 tablet 3 024 Active Blood Pressure kitIndications:E ssential hypertension 1 kit Once per day. 1 kit Active Continuous Glucose Haz Tech (FreeStyle Marie 2 Vance) deviceIndication s:Type 2 diabetes mellitus with hyperlipidemia (CMS/HCC) ([facility]) Scan sensor every 8 hours 1 each Active Continuous Glucose Sensor (FreeStyle Marie 2 Sensor) miscIndications: Type 2 diabetes mellitus with hyperlipidemia (CMS/HCC) ([facility]) Apply 1 sensor every 14 days 2 each Active glucose blood (FreeStyle Precision Nicola Test) test stripIndications :Type 2 diabetes mellitus with hyperlipidemia ([facility]/HCC) ([facility]) Use to test blood sugar 5 times daily 100 each 12 024 2024 Active empagliflozin (Jardiance) 10 MGIndications:Ty pe 2 diabetes mellitus with hyperlipidemia (CMS/HCC) ([facility]) Take 1 tablet (10 mg) by mouth Once per day. 30 tablet 024 2024 Active naloxone (Narcan) 4 mg/0.1 mL nasal sprayIndications :Chronically on opiate therapy Administer 1 spray (4 mg) into affected nostril(s) if needed for opioid reversal. 2 each 2 Active ezetimibe (Zetia) 10 MG tablet TAKE 1 TABLET BY MOUTH AT BEDTIME 90 tablet 3 Active Multiple Vitamin (Multivitamin) tablet TAKE 1 TABLET BY MOUTH EVERY MORNING WITH FOOD 90 tablet 3 Active atorvastatin (Lipitor) 80 MG tabletIndication s:Hyperlipidemia , unspecified TAKE 1 TABLET BY MOUTH AT BEDTIME 90 tablet 3 Active Easy Touch Pen [place] 31G X 8 MM miscIndications: Type 2 diabetes mellitus with other specified complication ([facility]) USE DIRECTED FOUR TIMES DAILY 100 each Active Semaglutide, 2 MG/DOSE, (Ozempic, 2 MG/DOSE,) 8 MG/3ML solution pen-injectorIndi cations:Type 2 diabetes mellitus with hyperlipidemia (CMS/HCC) ([facility]) Inject 0.75 mL (2 mg) under the skin every 7 (seven) days. 3 mL Active insulin degludec (Tresiba FlexTouch) 100 UNIT/ML injectionIndicat ions:Type 2 diabetes mellitus with hyperlipidemia (CMS/HCC) (CMS/HCC),Type 2 diabetes mellitus with other specified complication (CMS/HCC) Inject 36 Units under the skin Once daily. 15 mL 2 024 Active insulin lispro (HumaLOG) 100 UNIT/ML injectionIndicat ions:Type 2 diabetes mellitus with hyperlipidemia (CMS/HCC) (CMS/HCC) INJECT 10-15 UNITS SUBCUTANEOUSLY THREE TIMES DAILY WITH MEALS PER SLIDING SCALE: [id number]=9 UNITS, 201-250=8 UNITS, 251-300=10 UNITS, 301-350=12 UNITS, 351-400=14 UNITS, >401=16 UNITS 15 mL 3 024 Active HYDROcodone-acet aminophen ([place]) 5-325 MG tabletIndication s:Chronic back pain greater than 3 months duration Take 1 tablet by mouth every 8 (eight) hours if needed for severe pain for up to 28 days. 84 tablet 025 2024 Active amLODIPine (Norvasc) 10 MG tabletIndication s:Essential (primary) hypertension TAKE 1 TABLET BY MOUTH EVERY MORNING 90 tablet 1 025 Active amitriptyline (Elavil) 150 MG tabletIndication s:Major depressive disorder, recurrent, severe with psychotic features (CMS/HCC) TAKE 1 TABLET BY MOUTH AT BEDTIME 90 tablet 1 025 Active nystatin (Mycostatin) 278180 UNIT/GM powderIndication s:Intertrigo Apply topically 2 times daily. For 2-4 weeks 60 g 025 2025 Active amitriptyline (Elavil) 150 MG tabletIndication s:Major depressive disorder, recurrent, severe with psychotic features (CMS/HCC) Take 1 tablet (150 mg) by mouth at bedtime. 90 tablet 1 024 2024 Discontinued amLODIPine (Norvasc) 10 MG tabletIndication s:Essential (primary) hypertension TAKE 1 TABLET BY MOUTH EVERY MORNING 90 tablet 1 024 2024 Discontinued HYDROcodone-acet aminophen ([place]) 5-325 MG tabletIndication s:Chronic back pain greater than 3 months duration Take 1 tablet by mouth every 8 (eight) hours if needed for severe pain for up to 28 days. Do not start before October 02, 2024. 84 tablet 024 2024 Discontinued(R eorder (will not trigger notification to Pharmacy)) Active Problems Problem Noted Date Diagnosed Date Arthritis of spine 12/07/2023 Rotator cuff tear, right 12/07/2023 Status post hysterectomy 12/07/2023 Overview (12/07/2023): 2003 hysterectomy w/BSO. Positive for Hormone replacement therapy (Type: estrogen, Number of years: 10). Last Pap 2017, NIL, HPV- Status post cholecystectomy 12/07/2023 Status post tonsillectomy 12/07/2023 Memory problem 12/07/2022 Assessment & Plan (12/07/2022 11:39 AM EST): Markedly impaired memory including forgetting to bathe unless reminded, doesn't retain written information for more than 1 hour. Did not pay rent and is now facing eviction. We will write a letter documenting that she is under care for chronic medical and mental health problems including memory loss. Labs ordered. She will F/U with her PCP. Major depressive disorder, r ecurrent, severe with psychotic features 10/06/2022 Assessment & Plan (02/03/2024 4:57 PM EDT): Also features of PTSD (flashbacks and nightmares). Insomnia, paranoia, auditory hallucinations of many people talking at the same time. Past hx intense visual hallucinations but none x 20 years. Panic attacks. Racing thoughts. PMH: Chronic pain on [place] 5-325, has Narcan and follows regularly with [employer] monitoring program; DM, Htn, Hyperlipidemia. She is doing very well, stable on medications, and will continue Amitriptyline 100 mg at bedtime, Seroquel 25 mg at bedtime, and Sertraline 150 mg in am. Pt was given the phone number to F/U on her counseling referral. Since this provider will be retiring, at this time patient is referred back to PCP for continued medication management. Call [facility] with any issues or concerns. All her questions were answered, and she agrees with the plan. Assessment & Plan (12/30/2023 2:35 PM EDT): Also features of PTSD (flashbacks and nightmares). Insomnia, paranoia, auditory hallucinations of many people talking at the same time. Past hx intense visual hallucinations but none x 20 years. Panic attacks. Racing thoughts. PMH: Chronic pain on [place] 5-325, has Narcan and follows regularly with [employer] monitoring program; DM, Htn, Hyperlipidemia. Currently under a great deal of situational stress r/t impending eviction. Chronic illnesses and memory problems. Referring to Care Mgt to see if there is anything that can be done to help with housing and/or [employer] support. Despite this, feels her psychiatric medications are fine as is -- mood swings and hallucinations are controlled and she is sleeping better. Did not explore counseling today. She will continue Amitriptyline 100 mg at bedtime, Seroquel 25 mg at bedtime, and Sertraline 150 mg in am. Will refer again for counseling. On 11/04/2023 provider informed pt that I would be retiring but we would make every effort to ensure smooth transition of care. Meanwhile, F/U with me in approx 1 month. She agrees with the plan. Assessment & Plan (11/04/2023 3:27 PM EST): Also features of PTSD (flashbacks and nightmares). Insomnia, paranoia, auditory hallucinations of many people talking at the same time. Past hx intense visual hallucinations but none x 20 years. Panic attacks. Racing thoughts. PMH: Chronic pain on [place] 5-325, has Narcan and follows regularly with [employer] monitoring program; DM, Htn, Hyperlipidemia. Had done well, but is apparently missing her Seroquel and not sleeping well with peculiar dreams, having mood swings with crying. Still no hallucinations, however. Memory improved since decreased dose of Amitriptyline 100 mg at bedtime. She will now resume Seroquel 25 mg at bedtime (added to Medboxes), Sertraline 150 mg in am. Will refer again for counseling. Today 11/04/2023 provider informed pt that I would be retiring but we would make every effort to ensure smooth transition of care. Meanwhile, F/U with me in 6-8 weeks. She agrees with the plan. Assessment & Plan (04/12/2023 12:20 PM EDT): Also features of PTSD (positive flashbacks and nightmares). Insomnia, paranoia, auditory hallucinations of many people talking at the same time. Past hx intense visual hallucinations but none x 20 years. Panic attacks. Racing thoughts. PMH: Chronic pain on [place] 5-325, has Narcan and follows regularly with [employer] monitoring program; DM, Htn, Hyperlipidemia. Doing very well. Memory improved since decreased dose of Amitriptyline 100 mg at bedtime. Mood and anxiety also doing well. Continue other medications: Seroquel 25 mg at bedtime, Sertraline 150 mg in am. Will refer for counseling. F/U with me in 2-3 months. She agrees with the plan. Assessment & Plan (02/15/2023 10:35 AM EDT): Also features of PTSD (positive flashbacks and nightmares). Insomnia, paranoia, auditory hallucinations of many people talking at the same time. Past hx intense visual hallucinations but none x 20 years. Panic attacks. Racing thoughts. Doing very well. Memory improved since decreased dose of Amitriptyline 100 mg at bedtime. Mood and anxiety also doing well. Continue other medications: Seroquel 25 mg at bedtime, Sertraline 150 mg in am. Will refer for counseling. F/U with me in 8 weeks. She agrees with the plan. Assessment & Plan (01/04/2023 11:38 AM EDT): Also features of PTSD (positive flashbacks and nightmares). Insomnia, paranoia, auditory hallucinations of many people talking at the same time. Past hx intense visual hallucinations but none x 20 years. Panic attacks. Racing thoughts. Doing better. Memory improved since decreased dose of Amitriptyline 100 mg at bedtime. Anxiety also improved. Continue other medications. Will send patient the list of area counseling agencies and she can call to see about intake. F/U with me in 6 weeks. She agrees with the plan. Assessment & Plan (12/07/2022 11:37 AM EST): Also features of PTSD (positive flashbacks and nightmares). Insomnia, paranoia, auditory hallucinations of many people talking at the same time. Past hx intense visual hallucinations but none x 20 years. Panic attacks. Racing thoughts. With markedly worsened memory, will decrease Amitriptyline to 100 mg at bedtime. Continue other medications. F/U with me in 3-4 weeks. She agrees with the plan. Assessment & Plan (10/06/2022 9:44 AM EST): Also features of PTSD (positive flashbacks and nightmares). Insomnia, paranoia, auditory hallucinations of many people talking at the same time. Past hx intense visual hallucinations but none x 20 years. Panic attacks. Racing thoughts. She does not actually have history consistent with BPD. She is still doing well with Zoloft 150 mg daily and Seroquel 25 mg at bedtime. She will continue these along with Amitriptyline 150 mg at bedtime. Sleep and mood are much better. She will call to follow up on referral for therapy. F/U with me in 2 months. She agrees with the plan. Stage 3 chronic kidney disease 07/10/2020 Anxiety 05/17/2018 Type 2 diabetes mellitus with hyperlipidemia (CM S/HCC) 05/17/2018 Overview (06/16/2024): Lab Results Component Value Date HGBA1C 11.5 (A) 03/13/2024 HGBA1C 10.9 (A) 12/07/2023 HGBA1C 9.7 (H) 05/03/2020 HGBA1C 9.7 (H) 05/03/2020 HGBA1C 9.7 (H) 05/03/2020 A1c above goal </= 7.0 DM w/ CKD, HLD, HTN Ozempic 1mg wkly (trulicity ineffective, needed more potent agent) tresiba 45units daily, humalog 10-15 units daily before meals Jardiance 10mg CGM needed for BG monitoring, uncontrolled DM, pt with poor memory On ARB, statin (plus zetia), not on ASA Foot exam abnormal 02/2022 Eye exam Due for PCV20 Last renal function (overdue, rec to get update multiple times): Lab Results Component Value Date BUN 12 05/03/2020 BUN 12 05/03/2020 No results found for: EGFR No results found for: MICROALBCREA No results found for: MICROALBCREU Essential hypertension 05/17/2018 Overview (12/07/2023): Losartan 100mg, amlodipine 10mg daily Hyperlipidemia 05/17/2018 Sensorineural hearing loss (SNHL) of both ears 0 10/21/2017 Chronic back pain greater than 3 months duration 09/22/2005 Overview (12/07/2023): W/ h/o spina bifida occulta Recommend heat, stretching, regular exercise Pt on [employer] w/ hydrocodone-APAP 7.5-325 q8 hrs prn pain with goal to taper Encounters Date Type Department Care Team Description 11/10/2024 Telephone [facility] [place] [place] [address] Megan Pathak ANP Nurse Triage 11/09/2024 Telephone [facility] MEDICINE [address] [place] [address] Megan Pathak ANP Durable Medical Equipment 11/06/2024 Orders Only [facility] [place] [address] Megan Pathak ANP Sensorineural hearing loss (SNHL) of both ears (Primary Dx) 11/02/2024 Telephone [facility] [place] [address] Megan Pathak ANP Referral 11/02/2024 Refill [facility] [place] [address] Megan Pathak ANP Essential (primary) hypertension; Major depressive disorder, recurrent, severe with psychotic features (CMS/HCC) 11/01/2024 Refill [facility] MED[facility] [address] [facility] [place] [phone] Megan Pathak ANP Chronic back pain greater than 3 months duration 10/25/2024 Telephone [facility] MEDICINE [address] [facility] [place] [address] Megan Pathak ANP Referral 10/23/2024 Telephone [facility] MEDICINE [address] [place] [address] Phoebe Rodriguez MA December 10/16/2024 Telephone [facility] MEDICINE [address] [place] [address] Megan Pathak ANP Nurse Triage 10/13/2024 11:00 AM EST Clinical Support [address] [address] Giovana Sal RN Chronically on opiate therapy 10/13/2024 Travel 10/03/2024 Refill [facility] MEDICINE [address] [place] [phone] Megan Pathak ANP Type 2 diabetes mellitus with hyperlipidemia (CMS/HCC) (CMS/HCC) 09/29/2024 Refill [facility] MEDICINE [address] [place] [address] Megan Pathak ANP Chronic back pain greater than 3 months duration 09/18/2024 3:00 PM EST Office Visit [address] [address] Megan Pathak ANP Encounter for immunization (Primary Dx); Type 2 diabetes mellitus with hyperlipidemia (CMS/HCC) (CMS/HCC); Type 2 diabetes mellitus with other specified complication (CMS/HCC); assisted (current) use of opiate analgesic 09/18/2024 Travel 09/09/2024 Refill [facility] [address] [place] [address] Megan Pathak ANP Type 2 diabetes mellitus with other specified complication (CMS/HCC) 09/05/[address] [address] Megan Pathak ANP Medication Question 09/04/[address] [address] Megan Pathak ANP Med Refill 09/04/2024 Refill [facility] [address] [place] [address] Giovana Sal, surgeon partner back pain greater than 3 months duration 09/04/2024 Telephone [facility] [address] [place] [address] Megan Pathak ANP from Last 3 Months Immunizations Name Administration Dates Next Due Hep B, adult 10/26/2007,07/27/2007 Influenza injectable quadriv alent IIV4 with preservative 07/27/2018 Influenza injectable quadriv alent preservative free 11/05/2020,12/05/2019,05/16/2017 Influenza, IIV3, injectable 08/10/2016,0 05/25/2016,07/11/2015,07/31,06/24/2012,07/10/2011,06/29/2008 Influenza, seasonal, injecta ble, preservative free 09/18/2024,05/25/2016 Pfizer Covid-19 Vaccine 12+ 09/18/2024,,07/14/2021 Pneumococcal Polysaccharide PPSV23 12/09/2007 TD (adult), 2 Lf tetanus tox oid, preservative free, adsorbed 11/16/2017 Tdap 12/09/2007 Social History Tobacco Use Types Packs/Day Years [...] Orientation Straight 08/10/2022 10 :27 AM EDT Last Filed Vital Signs Vital Sign Reading [...] 12.8 oz) 09/18/2024 3:00 PM EST Height 144.8 cm (4' 9 ) 12/07/2023 9:25 AM EST Body Mass Index 37.61 12/07/2023 9:25 AM EST Plan of Treatment Upcoming Encounters Date Type Department Care Team (Late st Contact Info) Description 12/29/2024 11:00 AM EDT Clinical Support [facility] MEDICINE [address] [place] [address] Giovana Sal, GLORY [address] [place] [address] 02/20/2025 2:30 PM EDT Office Visit [facility] OPTOMETRY [address] [place] [address] Valentina Brown, OD [address] [place] [address] Health Maintenance Due Date Last Done Comments CT Colonography 1972 Colonoscopy 1972 Colorectal Cancer Screening 1972 FIT DNA/Cologuard 1972 FIT 1972 FOBT 1972 Sigmoidoscopy 1972 Eye Exam 1982 Family Planning (PISQ) 1987 Hepatitis C Screening 1990 Diabetes: Urine Protein Screening 1991 Pap Smear 1993 Hepatitis B Vaccines (3 of 3 - 19+ 3-dose series) 01/26/2008 10/26/2007, 07/27/2007 Pneumococcal Vaccine: 50+ Years (2 of 2 - PCV) 12/08/2008 12/09/2007 Mammogram 2012 Lipid Panel 05/03/2021 05/03/2020 Zoster Vaccines (1 of 2) 2022 HPV/Cotest 07/27/2023 07/27/2018 Alcohol/Substance Use Screening 12/07/2024 12/07/2023 SDOH Screening 01/11/2025 01/12/2024 Depression Screening 02/02/2025 02/03/2024, 02/03/20 Diabetes: Hemoglobin A1C 03/19/2025 024, 03/13/2024, 12/07/2023, Additional history exists Diabetes: Foot Exam 09/18/2025 09/18/2024, 09/18/2024, 09/18/2024, Additional history exists Tobacco Screening 09/18/2025 09/18/2024 DTaP/Tdap/Td Vaccines (3 - Td or Tdap) 11/16/2027 11/16/2017, 12/09/2007 RSV Patients and Patients Aged 60 years or older (1 - 1-dose 75+ series) 2047 HIV Screening Completed 05/03/2020 COVID-19 Vaccine Completed 09/18/2024, , 07/14/2021 Influenza Vaccine Completed 09/18/2024, , 12/05/2019, Additional history exists Cervical Cancer Screening Discontinued HIB Vaccines Aged Out No longer eligi ble based on patient's age to complete this topic HPV Vaccines Aged Out No longer eligi ble based on patient's age to complete this topic Hepatitis A Vaccines Aged Out No long er eligible based on patient's age to complete this topic IPV Vaccines Aged Out No longer eligi ble based on patient's age to complete this topic Meningococcal Vaccine Aged Out No dayana alexandro eligible based on patient's age to complete this topic RSV under 20 months Aged Out No longe r eligible based on patient's age to complete this topic Rotavirus Vaccines Aged Out No longer eligible based on patient's age to complete this topic Procedures Procedure Name Priority Date/Time Associated Diagnosis Comments POCT MICHELLE-14 URINE DRUG SCREEN Routine 10/13/2024 11:05 AM EST Chronically on opiate therapy POCT GLYCATED HEMOGLOBIN, TOTAL Routine 09/18/2024 4:04 PM EST Type 2 diabetes mellitus with hyperlipidemia (CMS/HCC) ([facility]) POCT GLUCOSE Routine 09/18/2024 4:03 PM EST Type 2 diabetes mellitus with hyperlipidemia (CMS/HCC) ([facility]) HIV 1/2 ANTIGEN/ANTIBODY, FOURTH GENERATION W/RFL Routine 05/03/2020 10:35 AM EDT LIPID PANEL, STANDARD Routine 05/03/2020 10:35 AM EDT ZZZ HISTORICAL HPV MRNA E6/E7 Routine 07/27/2018 3:04 PM EDT from Last 3 Months or Most Recently Relevant to Health Maintenance Results * POCT MICHELLE-14 Urine Drug Screen (10/13/2024 11:05 AM EST) THC Positive Opiate Screen, Urine Positive TCA, Urine Positive Urine Urine specimen obtained by clean catch procedure / Unknown 10/13/2024 11:05 AM EST Narrative Giovaan Sal, RN - 10/13/2024 11:05 AM EST .UTOX cup Lot#[id number] Exp. 07/05/26 Internal Pass Control Megan COFFEY POINT OF CARE TEST ENTER/EDIT OR DERABLES Final Result * (ABNORMAL) POCT HGB A1C (09/18/2024 4:04 PM EST) Hemoglobin A1C 6.1(A) 4.0 - 6.0 % QC Media Lot # [id number] Lot# Expiration Date [id number] Blood 09/18/2024 4:04 PM EST Megan Pathak [facility] POINT OF CARE TEST ENTER/EDIT OR DERABLES Final Result * POCT Glucose (09/18/2024 4:03 PM EST) Glucose Blood, POC 166 60 - 200 mg/dL QC Media Lot # [id number] Lot# Expiration Date [id number] Blood Capillary blood specimen / Unknown 09/18/2024 4:03 PM EST us Megan Pathak [facility] POINT OF CARE TEST ENTER/EDIT OR DERABLES Final Result * HIV 1/2 ANTIGEN/ANTIBODY,FOURTH GENERATION W/RFL (05/03/2020 10:35 AM EDT) HIV-1/2 ANTIGEN AND ANTIBODIES, 4TH GENERATION W/ REFLEX NON-REACT SILVIA NON-REACT SILVIA [facility] Comment: HIV-1 antigen and HIV-1/HIV-2 antibodies were not detected. There is no laboratory evidence of HIV infection. ?? PLEASE NOTE: This information has been disclosed to you from records whose confidentiality may be protected by state law. ??If your state requires such protection, then the state law prohibits you from making any further disclosure of the information without the specific written consent of the person to whom it pertains, or as otherwise permitted by law. A general authorization for the release of medical or other information is NOT sufficient for this purpose. ? For additional information please refer to http://[email or web address]/faq/[email or web address] (This link is being provided for informational/ educational purposes only.) ? The performance of this assay has not been clinically validated in patients less than 2 years old. ?? 05/03/2020 10:3 5 AM EDT us Megan Pathak [facility] LAB BLOOD ORDERABLES Final Resul t [facility] [address] [place] [address], * (ABNORMAL) LIPID PANEL, STANDARD (05/03/2020 10:35 AM EDT) Cholesterol, Total 249(H) <200 mg/dL [facility] Triglycerides 659(H) <150 mg/dL [facility] Comment: ?? If a non-fasting specimen was collected, consider repeat triglyceride testing on a fasting specimen if clinically indicated. ?? Frederic et al. J. of Clin. Lipidol. 2015;9:129-169. ? There is increased risk of pancreatitis when the ?? triglyceride concentration is very high ?? (> or = 500 mg/dL, especially if > or = 1000 mg/dL). ?? Frederic et al. J. of Clin. Lipidol. 2015;9:129-169. ?? LDL Cholesterol SEE COMMENT mg/dL (calc) [facility] Comment: ?? LDL cholesterol not calculated. Triglyceride levels greater than 400 mg/dL invalidate calculated LDL results. ?? Reference range: <100 ?? Desirable range <100 mg/dL for primary prevention; ?? <70 mg/dL for patients with CHD or diabetic patients ?? with > or = 2 CHD risk factors. ?? LDL-C is now calculated using the Christian-Lindsey ?? calculation, which is a validated novel method providing ?? better accuracy than the Friedewald equation in the ?? estimation of LDL-C. ?? Christian CHAVIS et al. AMADA. 2013;310(19): 2487-4595 ?? (http://education.Wolonge.Maestrano/faq/GJU653) Chol/HDLC Ratio 5.0(H) <5.0 (calc) [facility] Non-HDL Cholesterol 199(H) <130 mg/dL (calc) [facility] Comment: For patients with diabetes plus 1 major ASCVD risk ?? factor, treating to a non-HDL-C goal of <100 mg/dL ?? (LDL-C of <70 mg/dL) is considered a therapeutic ?? option. Non-HDL Cholesterol 199(H) <130 mg/dL (calc) [facility] Comment: For patients with diabetes plus 1 major ASCVD risk ?? factor, treating to a non-HDL-C goal of <100 mg/dL ?? (LDL-C of <70 mg/dL) is considered a therapeutic ?? option. Cholesterol, Total 249(H) <200 mg/dL [facility] HDL Cholesterol 50 > OR = 50 mg/dL [facility] HDL Cholesterol 50 > OR = 50 mg/dL [facility] LDL Cholesterol SEE COMMENT mg/dL (calc) [facility] Comment: ?? LDL cholesterol not calculated. Triglyceride levels greater than 400 mg/dL invalidate calculated LDL results. ?? Reference range: <100 ?? Desirable range <100 mg/dL for primary prevention; ?? <70 mg/dL for patients with CHD or diabetic patients ?? with > or = 2 CHD risk factors. ?? LDL-C is now calculated using the Christian-Lindsey ?? calculation, which is a validated novel method providing ?? better accuracy than the Friedewald equation in the ?? estimation of LDL-C. ?? Christian CHAVIS et al. AMADA. 2013;310(19): 4699-9690 ?? (http://education.Lumidigm/faq/JIU444) Chol/HDLC Ratio 5.0(H) <5.0 (calc) [facility] Triglycerides 659(H) <150 mg/dL [facility] Comment: ?? If a non-fasting specimen was collected, consider repeat triglyceride testing on a fasting specimen if clinically indicated. ?? Frederic et al. J. of Clin. Lipidol. 2015;9:129-169. ? There is increased risk of pancreatitis when the ?? triglyceride concentration is very high ?? (> or = 500 mg/dL, especially if > or = 1000 mg/dL). ?? Frederic et al. J. of Clin. Lipidol. 2015;9:129-169. ?? 05/03/2020 10:3 5 AM EDT us Megan Pathak [facility] BLOOD ORDERABLES Final Resul t [facility] [address] * HPV mRNA E6/E7 (07/27/2018 3:04 PM EDT) HPV mRNA E6/E7 Not Detected NOT DETECTED [facility] Comment: This test was performed using the APTIMA(R) HPV Assay ([employer] This assay detects E6/E7 viral messenger RNA (mRNA) from 14 high-risk HPV types (16,18,31,33,35,39,45,51, 52,56,58,59,66,68). For additional information please refer to: http://Ekso Bionics.Flexible Technologies, LLC/faq/MAV078r2 (This link is being provided for informational/ educational purposes only.) The analytical performance characteristics of this assay have been determined by [facility] [place], [place]. The modifications have not been cleared or approved by the FDA. This assay has been validated pursuant to the CLIA regulations and is used for clinical purposes. Test Performed by [facility], [facility], [address] [place] [address] Hamlet Anguiano M.D., Ph.D., Director of Laboratories , CLIA [id number] Please note: ??Effective 06/22/2016, HPV testing will be performed using [employer]'s APTIMA test which targets mRNA. Detecting mRNA instead of DNA, as in older methods, offers significant improvements in specificity. 07/27/2018 3:04 PM EDT us An Farrar CNM HISTORICAL/NON ORDERABLE LABS Final Result [facility] [address] from Last 3 Months or Most Recently Relevant to Health Maintenance [facility] Care Teams County Manager Relationship Specialty Start Date End Date Megan Pathak ANP [address] [place] [address] PCP - General Family Medicine 02/28/20 [employer] 03/23/24
--- OUTSIDE RECORDS SUMMARY | 2024-11-21 15:39 | XMS_ITS | Encounter Summary ---
Author Organization [employer] Address [address] [facility] 7t [place] [address] Care Team Providers Care Environmental Science Instructor Name Role Phone Megan Pathak Primary Care Provider [phone] Reason for Visit * Reason Onset Date Comments Med Refill 11/01/2024 Encounter Details Date Type Department Care Team (Late st Contact Info) Description 11/01/2024 Refill [facility] MEDICINE [address] [place], [place] [phone] Megan Pathak ANP [address] [place] [address] Chronic back pain greater than 3 months duration Social History Tobacco Use Types Packs/Day Years Used Date Smoking Tobacco: Former Cigarettes Smokeless Tobacco: Never Alcohol Use Standard Drinks/Week [...] the past 12 months, has t he [employer], [employer], oil or water [employer] threatened to shut off services in your [...] encounter Miscellaneous Notes * Telephone Encounter - Erica Quevedo RN - 11/01/2024 10:38 AM EST Incoming call received from patient requesting refill for Hydrocodone 5-325mg tablet. Per chart review RX for Hydrocodone on 10/30/2024. The patient last saw [facility] nurse on 10/13/24 and next appointment with [facility] nurse is on 12/29/24. ASSOCIATE EDITOR checked, last filled on 10/02/2024. Message sent to PCP to review. * Telephone Encounter - Aniyah Aly - 11/01/2024 9:16 AM EST TC from pt requesting medication refill. Medications needing refill : HYDROcodone-acetaminophen ([place]) 5-325 MG tablet () To be sent to: [facility] [place], [place] - [address] documented in this encounter Plan of Treatment Upcoming Encounters Date Type Department Care Team (Late st Contact Info) Description 12/29/2024 11:00 AM EDT Clinical Support [facility] MEDICINE [address] [place] [address] Giovana Sal, GLORY [address] [place] [address] 02/20/2025 2:30 PM EDT Office Visit [facility] OPTOMETRY [address] [place] [address] Valentina Brown, RUDDY [address] [place] [address] documented as of this encounter Visit Diagnoses Diagnosis Chronic back pain greater than 3 months duration documented in this encounter Additional Health Concerns Assessment Noted Time PHQ-9 Depression Total Score: 2 02/03/20 24 4:00 PM EDT documented as of this encounter Care Teams Environmental Science Instructor Relationship Specialty Start Date End Date Megan Pathak ANP [address] [place], [place] PCP - General Family Medicine 02/28/20 [employer] 03/23/24 documented as of this encounter
--- OUTSIDE RECORDS SUMMARY | 2024-11-21 15:39 | XMS_ITS | Encounter Summary ---
Author Organization Number [employer] Address [address] [facility] 7t [place] [address] Care Team Providers Care Gis Analyst Developer Name Role Phone Megan Pathak Primary Care Provider Reason for Visit * Reason Onset Date Comments PT1 10/20/2023 Encounter Details Date Type Department Care Team ([facility] Contact Info) Description 10/20/2023 Telephone [facility] MEDICINE [address] [place], [place] [phone] Megan Pathak ANP [address] [place] [address] PT1 Social History Tobacco Use Types Packs/Day Years Used Date Smoking Tobacco: Never Smokeless Tobacco: Never Depression Answer Date Recorded Patient Health Questionnaire-9 [...] Miscellaneous Notes * Telephone Encounter - Boris Sammy - 10/20/2023 2:42 PM EST PT1 needed Date: 12/07/23 Time: 9:00 am Visits: 4 a month Address: [address] [place] [address] Facility: Wheel Chair: no Beauty Culture Teacher [facility]: [facility] locations to current PT1. [address] [place] [address] ([facility]) and [address] [facility] ([facility]). If any questions you can contact Ofelia at [phone]. documented in this encounter Plan of Treatment Upcoming Encounters Date Type Department Care Team (Late st Contact Info) Description 12/29/2024 11:00 AM EDT Clinical Support [facility] MEDICINE [address] [place] [address] Giovana Sal, GLORY [address] [place] [address] 02/20/2025 2:30 PM EDT Office Visit [facility] OPTOMETRY [address] [place] [address] Valentina Brown, RUDDY [address] [place] [address] documented as of this encounter Visit Diagnoses Not on filedocumented in this encounter Additional Health Concerns Assessment Noted Time PHQ-9 Depression Total Score: 1 04/12/20 23 11:19 AM EDT documented as of this encounter Care Teams Gis Analyst Developer Relationship Specialty Start Date End Date Megan Pathak ANP [address] [place] [address] PCP - General Family Medicine 02/28/20 [employer] 03/23/24 documented as of this encounter
--- OUTSIDE RECORDS SUMMARY | 2024-11-21 15:39 | XMS_ITS | Encounter Summary ---
Author Organization [employer] Address [address] [facility] 7t [place] [address] Care Team Providers Care Manufacturing Quality Manager Name Role Phone Megan Pathak Primary Care Provider [phone] Reason for Visit * Reason Onset Date Comments Med Refill 12/20/2023 Encounter Details Date Type Department Care Team ([facility] st Contact Info) Description 12/20/2023 Telephone [facility] MEDICINE [address] [place], [place] [phone] Megan Pathak ANP [address] [place], [place] [phone] Med Refill Social History Tobacco Use Types [...] Answer Date Recorded Patient Health Questionnaire-9 Score 0 12/07/2023 Patient Health Questionnaire-9 Score 0 12/07/2023 Last PHQ-9: Questionnaire Data Not on file 0 12/07/2023 Housing Stability Answer Date Recorded What is your housing situation today? I have shea sanchez 12/07/[address] you li ve. Do you have problems with any of the following? None of the above 12/07/2023 Food Insecurity Answer Date Recorded Within the [...] Date Recorded Patient Health Questionnaire-2 Score 0 12/07/2023 Comments Unknown Sex and Gender Information Value Date Recorded Sex Assigned at Female 08/10/2022 10:27 AM EDT Legal Sex Female 10:27 AM EDT Gender Identity Female 08/10/2022 10:27 AM EDT Sexual Orientation Straight 08/10/2022 10 :27 AM EDT documented as of this encounter Miscellaneous Notes * Telephone Encounter - Boris Christianson - 12/20/2023 11:43 AM EDT TC from pt requesting medication refill. Medications needing refill: HYDROcodone-acetaminophen ([place]) 7.5-325 MG tablet To be sent to: [facility] Pharmacy documented in this encounter Plan of Treatment Upcoming Encounters Date Type Department Care Team (Late st Contact Info) Description 12/29/2024 11:00 AM EDT Clinical Support [facility] MEDICINE [address] [place] [address] Giovana Sal RN [address] [place] [address] 02/20/2025 2:30 PM EDT Office Visit [facility] OPTOMETRY [address] [place] [address] Valentina Brown, RUDDY [address] [place] [address] documented as of this encounter Visit Diagnoses Not on filedocumented in this encounter Additional Health Concerns Assessment Noted Time PHQ-9 Depression Total Score: 0 12/07/19 24 9:26 AM EST documented as of this encounter Care Teams Manufacturing Quality Manager Relationship Specialty Start Date End Date Megan Pathak ANP [address] [place] [address] PCP - General Family Medicine 02/28/20 [employer] 03/23/24 documented as of this encounter
--- OUTSIDE RECORDS SUMMARY | 2024-11-21 15:39 | XMS_ITS | Encounter Summary ---
Author Organization [employer] Address [address] [place] [address] 7t [place] [address] Care Team Providers Care Carpenter Supervisor Wooden Ship Name Role Phone Megan Pathak Primary Care Provider [phone] Reason for Visit * Reason Comments Med Refill Encounter Details Date Type Department Care Team (Late st Contact Info) Description 02/04/2023 Refill [facility] [address] [place], [place] [phone] Megan Pathak ANP [address] [place], [place] [phone] Chronic back pain greater than 3 months [...] 12/29/2024 11:00 AM EDT Clinical Support [facility] MEDICINE [address] [place] [address] Giovana Sal, GLORY [address] [place], [place] [phone] 02/20/2025 2:30 PM EDT Office Visit [facility] OPTOMETRY [address] [place] [address] Valentina Brown OD [address] [place], [place] [phone] documented as of this encounter Visit Diagnoses Diagnosis Chronic back pain greater than 3 months duration documented in this encounter Additional Health Concerns Assessment Noted Time PHQ-9 Depression Total Score: 5 01/05/20 23 11:10 AM EDT documented as of this encounter Care Teams Carpenter Supervisor Wooden Ship Relationship Specialty Start Date End Date Megan Pathak ANP [address] [place], [place] [phone] PCP - General Family Medicine 02/28/20 [employer] 03/23/24 documented as of this encounter
--- OUTSIDE RECORDS SUMMARY | 2024-11-21 15:39 | XMS_ITS | Encounter Summary ---
Author Organization [employer] Address [address] [facility] 7t [place] [address] Care Team Providers Care Coach Builder Name Role Phone Megan Pathak Primary Care Provider [phone] Reason for Visit * Reason Onset Date Comments Nurse Triage 11/10/2024 Encounter Details Date Type Department Care Team ([facility] st Contact Info) Description 11/10/2024 Telephone [facility] MEDICINE [address] [place], [place] [phone] Megan Pathak ANP [address] [place], [place] [phone] Nurse Triage Social History Tobacco Use Types Packs/Day Years [...] encounter Miscellaneous Notes * Telephone Encounter - Faith Cummins RN - 11/10/2024 11:31 AM EST Telephone call returned to patient in regards to below message. Patient wants medication delivered.Aware of no same day delivery. Patient verbalized understanding and denied having any further questions or concerns at this time. Patient to follow up as needed. Called pharmacy to get delivered. State they could deliver Wednesday. * Telephone Encounter - ERLINDA Banks - 11/10/2024 11:14 AM EST Have sent nystatin. If not improving, will need to come in for appt in 2 weeks. * Telephone Encounter - Emili Arguello RN - 11/10/2024 10:47 AM EST Called [facility] nurseAshley. Nurse states that pt. Has a yeast rash under breast folds that is itchy and red. [facility] looking for order for a yeast powder to apply under pt. Breasts and on small area on upper abdomen radiating down from right breast fold. Please advise and have Green team nurse call [facility] nurse back with verbal order. [phone]. * Telephone Encounter - Rober Masterson - 11/10/2024 10:41 AM EST Symptom: Breast Symptoms- Rash ON right Breast Outcome: Schedule an urgent appointment (within 4 hours) or talk to a nurse or provider soon Reason: Redness The caller accepted this outcome. Contact Audrey at [phone] documented in this encounter Plan of Treatment Upcoming Encounters Date Type Department Care Team ([facility] st Contact Info) Description 12/29/2024 11:00 AM EDT Clinical Support [facility] MEDICINE [address] [place] [address] Giovana Sal RN [address] [place] [address] 02/20/2025 2:30 PM EDT Office Visit [facility] OPTOMETRY [address] [place] [address] Valentina Brown, RUDDY [address] [place] [address] documented as of this encounter Visit Diagnoses Diagnosis Intertrigo- Primary Other specified erythematous condition documented in this encounter Additional Health Concerns Assessment Noted Time PHQ-9 Depression Total Score: 2 02/03/20 24 4:00 PM EDT documented as of this encounter Care Teams Coach Builder Relationship Specialty Start Date End Date Megan Pathak ANP [address] [place] [address] PCP - General Family Medicine 02/28/20 [employer] 03/23/24 documented as of this encounter
--- OUTSIDE RECORDS SUMMARY | 2024-11-21 15:39 | XMS_ITS | Encounter Summary ---
Author Organization [employer] Address [address] [place] [facility] 7t [place] [address] Care Team Providers Care Coater Name Role Phone Megan Pathak Primary Care Provider [phone] Reason for Visit * Reason Onset Date Comments Med Refill 07/21/2024 Encounter Details Date Type Department Care Team ([facility] st Contact Info) Description 07/21/2024 Telephone [facility] MEDICINE [address] [place], [place] [phone] Megan Pathak ANP [address] [place], [place] [phone] Med Refill Social History Tobacco Use Types [...] encounter Miscellaneous Notes * Telephone Encounter - Addison Reina - 07/21/2024 1:27 PM EDT Tc from [facility] MARIN requesting a refill for HYDROcodone-acetaminophen ([place]) 5- 325 MG tablet documented in this encounter Plan of Treatment Upcoming Encounters Date Type Department Care Team (Late st Contact Info) Description 12/29/2024 11:00 AM EDT Clinical Support [facility] MEDICINE [address] [place] [address] Giovana Sal RN [address] [place] [address] 02/20/2025 2:30 PM EDT Office Visit [facility] OPTOMETRY [address] [place] [address] Valentina Brown, OD [address] [place] [address] documented as of this encounter Visit Diagnoses Not on filedocumented in this encounter Additional Health Concerns Assessment Noted Time PHQ-9 Depression Total Score: 2 02/03/20 4:00 PM EDT documented as of this encounter Care Teams Coater Relationship Specialty Start Date End Date Megan Pathak ANP [address] [place] [address] PCP - General Family Medicine 02/28/20 [employer] 03/23/24 documented as of this encounter
--- OUTSIDE RECORDS SUMMARY | 2024-11-21 15:39 | XMS_ITS | Encounter Summary ---
Author Organization [employer] Address [address] [facility] [address] 7t [place] [address] Care Team Providers Care Rotary Pump Operator Name Role Phone Pathak Megan COFFEY Primary Care Provider [phone] Reason for Visit * Reason Onset Date Comments December recall 10/23/2024 Encounter Details Date Type Department Care Team ([facility] st Contact Info) Description 10/23/2024 Telephone [facility] MEDICINE [address] [place], [place] [phone] Phoebe Rodriguez MA December recall Social History Tobacco Use Types Packs/Day Years [...] encounter Miscellaneous Notes * Telephone Encounter - Phoebe Rodriguez MA - 10/23/2024 3:48 PM EST T/C to pt to schedule a recall rv dm. Number in chart [phone] not reachable. T/C to [phone] no answer LVM to call clinic to schedule appt. Mailed recall letter. documented in this encounter Plan of Treatment Upcoming Encounters Date Type Department Care Team (Late st Contact Info) Description 12/29/2024 11:00 AM EDT Clinical Support [facility] MEDICINE [address] [place] [address] Giovana Sal, GLORY [address] [place] [address] 02/20/2025 2:30 PM EDT Office Visit [facility] OPTOMETRY [address] [place] [address] Valentina Brown, RUDDY [address] [place] [address] documented as of this encounter Visit Diagnoses Not on filedocumented in this encounter Additional Health Concerns Assessment Noted Time PHQ-9 Depression Total Score: 2 02/03/20 4:00 PM EDT documented as of this encounter Care Teams Rotary Pump Operator Relationship Specialty Start Date End Date Megan Pathak ANP [address] [place] [address] PCP - General Family Medicine 02/28/20 [employer] 03/23/24 documented as of this encounter
--- OUTSIDE RECORDS SUMMARY | 2024-11-21 15:39 | XMS_ITS | Clinical Summary ---
Author Organization [facility] Address [address] [place] [address] Care Team Providers Care Coconut Candy Maker Name Role Phone ZoMegan Marcelina DAO Primary Care Provider Social History Tobacco Use Types Packs/Day Years Used Date Smoking Tobacco: Never Assessed Comments Unknown Sex and Gender Information Value Date Recorded Sex Assigned at Not on file Legal Sex Female 2:18 PM EST Gender Identity Not on file Sexual Orientation Not on file Plan of Treatment Health Maintenance Due Date Last Done Comments Hepatitis B Vaccines (3 of 3 - 19+ 3-dose series) 01/26/2008 10/26/2007, 07/27/2007 Breast Cancer Screening 12/01/2019 12/01/2017 Zoster Vaccines (1 of 2) 2022 COVID-19 Vaccine ( season) 2024 Influenza Vaccine (#1) 2024 6, 07/11/2015, 07/31/2013, Additional history exists DTaP,Tdap,and Td Vaccines (3 - Td or Tdap) 11/16/2027 11/16/2017, 12/09/2007 Pneumococcal Vaccine: Pediatrics (0 to 5 Years) and At-Risk Patients (6 to 64 Years) Aged Out 12/09/2007 No longer eligible based on patient's age to complete this topic HIB Vaccines Aged Out No longer eligi [...] on patient's age to complete this topic MMR Vaccines Aged Out No longer eligi ble based on patient's age to complete this topic Meningococcal ACWY Vaccine Aged Out N o longer eligible based on patient's age to complete this topic RSV Immunization Patients Under 20 months Aged Out No longer eligible based on patient's age to complete this topic Varicella Vaccines Aged Out No longer eligible based on patient's age to complete this topic Procedures Procedure Name Priority Date/Time Associated Diagnosis Comments SCR MAMMO BI INCL CAD Routine 12/01/2017 9:13 AM EST Encounter for screening mammogram for malignant neoplasm of breast from Last 3 Months or Most Recently Relevant to Health Maintenance Results * SCR MAMMO BI INCL CAD (12/01/2017 9:13 AM EST) Anatomical Region Laterality Modality Radiographic Martha ging 11/26/2016 8:54 AM EST Narrative 12/01/2017 3:24 PM EST This is a summary report. The complete report is available in the patient's medical record. If you cannot access the medical record, please contact the sending organization for a detailed fax or copy. Full field digital screening mammography, reviewed with CAD and compared to previous. ??The breasts are composed of fatty and fibroglandular tissue. ??No suspicious mass, architectural distortion or suspicious calcifications are identified. IMPRESSION: : No mammographic evidence of malignancy. BIRADS 1-Negative; N. 5 year breast cancer risk assessment 0.7 % Lifetime breast cancer risk assessment 8.2 % Breast cancer risk category Low (<15%) Procedure Note Sherrill Davis MD - 11/12/2023 This is a summary report. The complete report is available in thepatient's medical record. If you cannot access the medical record, pleasecontact the sending organization for a detailed fax or copy. Full field digital screening mammography, reviewed with CAD and comparedto previous. The breasts are composed of fatty and fibroglandular tissue.No suspicious mass, architectural distortion or suspicious calcificationsare identified. IMPRESSION: : No mammographic evidence of malignancy. BIRADS 1-Negative; N. 5 year breast cancer risk assessment 0.7 % Lifetime breast cancer risk assessment 8.2 % Breast cancer risk category Low (<15%) An Stacey ENDBANDER IMG XR PROCEDURES Final Resul t from Last 3 Months or Most Recently Relevant to Health Maintenance Care Teams Coconut Candy Maker Relationship Specialty Start Date End Date Megan Pathak NP [address] [place] [address] [place] [id number] PCP - General 02/25/24
--- OUTSIDE RECORDS SUMMARY | 2024-11-21 15:39 | XMS_ITS | Encounter Summary ---
Author Organization [employer] Address [address] [facility] 7t [place] [address] Care Team Providers Care Online Marketing Manager Name Role Phone Megan Pathak Primary Care Provider [phone] Reason for Visit * Reason Comments Med Refill Encounter Details Date Type Department Care Team ([facility] st Contact Info) Description 02/04/2023 Refill [facility] CHC MED & PEDS [address] [place] [phone] Megan Pathak ANP [address] [place] [address] Chronic back pain greater than 3 months [...] encounter Miscellaneous Notes * Telephone Encounter - Giovana Garcia RN - 02/15/2023 3:35 PM EDT PCP refused the med refill. Pt has an appt with PCP tomorrow, 02/16/23 documented in this encounter Plan of Treatment Upcoming Encounters Date Type Department Care Team (Late st Contact Info) Description 12/29/2024 11:00 AM EDT Clinical Support [facility] MEDICINE [address] [place] [address] Giovana Sal, GLORY [address] [place] [address] 02/20/2025 2:30 PM EDT Office Visit [facility] OPTOMETRY [address] [place] [address] Valentina Brown, OD [address] [place] [address] documented as of this encounter Visit Diagnoses Diagnosis Chronic back pain greater than 3 months duration documented in this encounter Additional Health Concerns Assessment Noted Time PHQ-9 Depression Total Score: 5 01/05/20 23 11:10 AM EDT documented as of this encounter Care Teams Online Marketing Manager Relationship Specialty Start Date End Date Megan Pathak ANP [address] [place] [address] PCP - General Family Medicine 02/28/20 [employer] 03/23/24 documented as of this encounter
--- OUTSIDE RECORDS SUMMARY | 2024-11-21 15:39 | XMS_ITS | Encounter Summary ---
Author Organization [employer] Address [address] [facility] 7t [place] [address] Care Team Providers Care Seed Cleaning Manager Name Role Phone Megan Pathak Primary Care Provider [phone] Reason for Visit * Reason Onset Date Comments Referral 11/02/2024 Encounter Details Date Type Department Care Team ([facility] st Contact Info) Description 11/02/2024 Telephone [facility]IC[facility] [address] [place], [place] [phone] Megan Pathak ANP [address] [place], [place] [phone] Referral Social History Tobacco Use Types Packs/Day Years [...] encounter Miscellaneous Notes * Telephone Encounter - ERLINDA Banks - 11/10/2024 11:15 AM EST Have sent new referral attached to 09/2024 note. thanks * Telephone Encounter - Florence Tafoya RN - 11/06/2024 11:11 AM EST Telephone call to Dr Degroot's office, was told that the pt was a no show in 05/22/2024. Cafe Team Member stated to resend referral packet with updated office notes. Will task to hematology specialist to re-fax WITH recent office note. Returned call to Renea at [facility], no answer, left v oicemail. Called pt, gave update about both referrals, told her to expect call in 1-2 weeks from podiatry and audiology to schedule. Pt verbalized understanding, to call clinic PRN. -- Received message to renew podiatry referral. referrals are typically good for 1 year with the exception of physical therapy. Referral for podiatry was placed in February 2024 I suspect is still good. Can you please clarify with the practice and update patient or IHS? Thank you * Telephone Encounter - Keiko Quevedo - 11/02/2024 9:34 AM EST Tc from Renea from [employer] requesting a referral for a tombstone setter (Terry Degroot) , past referral is closed. Also a second referral for ENT as pt loss hearing aides. If any questions please contact Renea ([facility]) [phone] documented in this encounter Plan of Treatment Upcoming Encounters Date Type Department Care Team (Late st Contact Info) Description 12/29/2024 11:00 AM EDT Clinical Support [facility] [address] [place] [address] Giovana Sal RN 505 [place] [address] 02/20/2025 2:30 PM EDT Office Visit [facility] OPTOMETRY [address] [place] [address] Kevin, Valentina, OD [address] [place] [address] documented as of this encounter Visit Diagnoses Not on filedocumented in this encounter Additional Health Concerns Assessment Noted Time PHQ-9 Depression Total Score: 2 02/03/20 24 4:00 PM EDT documented as of this encounter Care Teams Seed Cleaning Manager Relationship Specialty Start Date End Date Megan Pathak ANP [address] [place] [address] PCP - General Family Medicine 02/28/20 [employer] 03/23/24 documented as of this encounter
--- OUTSIDE RECORDS SUMMARY | 2024-11-21 15:39 | XMS_ITS | Encounter Summary ---
Author Organization [employer] Address [address] [facility] 7t [place] [address] Care Team Providers Care Galvanometer Assembler Name Role Phone Megan Pathak Primary Care Provider Reason for Visit * Reason Comments Med Refill Encounter Details Date Type Department Care Team ([facility] st Contact Info) Description 11/02/2024 Refill [facility] MEDICINE [address] [place], [place] [phone] Megan Pathak ANP [address] [place], [place] [phone] Essential (primary) hypertension; Major depressive disorder, recurrent, severe with psychotic features (CMS/HCC) Social History Tobacco Use Types Packs/Day Years [...] Description 12/29/2024 11:00 AM EDT Clinical Support [facility] MEDICINE 230 [place] [address] Giovana Sal RN 505 [place] [address] 02/20/2025 2:30 PM EDT Office Visit [facility] OPTOMETRY [address] [place] [address] Valentina Brown, RUDDY 230 [place] [address] documented as of this encounter Visit Diagnoses Diagnosis Essential (primary) hypertension Unspecified essential hypertension Major depressive disorder, recurrent, severe with psychotic features (CMS/HCC) Major depressive disorder, recurrent episode, severe, specified as with psychotic behavior documented in this encounter Additional Health Concerns Assessment Noted Time PHQ-9 Depression Total Score: 2 02/03/20 24 4:00 PM EDT documented as of this encounter Care Teams Galvanometer Assembler Relationship Specialty Start Date End Date Megan Pathak ANP [address] [place] [address] PCP - General Family Medicine 02/28/20 [employer] 03/23/24 documented as of this encounter
--- OUTSIDE RECORDS SUMMARY | 2024-11-21 15:39 | XMS_ITS | Encounter Summary ---
Author Organization [employer] Address [address] [facility] 7t [place] [address] Care Team Providers Care Windows And Doors Installer Name Role Phone Megan Pathak Primary Care Provider [phone] Reason for Visit * Reason Onset Date Comments Durable Medical Equipment 11/09/2024 Encounter Details Date Type Department Care Team ([facility] st Contact Info) Description 11/09/2024 Telephone [facility] MEDICINE 230 [place], [place] [phone] Megan Pathak ANP 230 [place] [address] Durable Medical Equipment Social History Tobacco Use Types Packs/Day Years [...] encounter Miscellaneous Notes * Telephone Encounter - Beckie Christianson - 11/20/2024 10:09 AM EST DME for Cane signed and faxed to [employer] . Confirmation received and sent to scan. If patient calls to check status on above, please advise them to contact [employer] at [phone]. * Telephone Encounter - Priyanka Ferreira - 11/14/2024 8:22 AM EST DME RX for cane generated and placed on providers desk for signature. * Telephone Encounter - Rober Masterson - 11/09/2024 9:14 AM EST Tc from Ashley with [employer] stating that pt Is requesting a cane due to pt losing their balance easily recently. Contact Ashley at [phone] documented in this encounter Plan of Treatment Upcoming Encounters Date Type Department Care Team (Late st Contact Info) Description 12/29/2024 11:00 AM EDT Clinical Support [facility] MEDICINE [address] [place] [address] Giovana Sal, GLORY [address] [place] [address] 02/20/2025 2:30 PM EDT Office Visit [facility] OPTOMETRY [address] [place] [address] Valentina Brown, RUDDY [address] [place] [address] documented as of this encounter Visit Diagnoses Not on filedocumented in this encounter Additional Health Concerns Assessment Noted Time PHQ-9 Depression Total Score: 2 02/03/20 24 4:00 PM EDT documented as of this encounter Care Teams Windows And Doors Installer Relationship Specialty Start Date End Date Megan Pathak ANP [address] [place] [address] PCP - General Family Medicine 02/28/20 [employer] 03/23/24 documented as of this encounter
--- OUTSIDE RECORDS SUMMARY | 2024-11-21 15:39 | XMS_ITS | Encounter Summary ---
Author Organization [employer] Address [address] [facility] 7t [place] [address] Care Team Providers Care Brake Repairer Name Role Phone Megan Pathak Primary Care Provider Reason for Visit * Reason Comments Med Refill Encounter Details Date Type Department Care Team ([facility] st Contact Info) Description 12/06/2023 Refill [facility] MEDICINE [address] [place], [place] [phone] Megan Pathak ANP [address] [place], [place] [phone] Diabetes mellitus type 2 in obese ([facility]/HCC) Social History Tobacco Use Types Packs/Day Years Used Date Smoking Tobacco: Never Smokeless Tobacco: Never Alcohol Answer Date Recorded Frequency of Alcohol [...] Description 12/29/2024 11:00 AM EDT Clinical Support [facility] MEDICINE [address] [place] [address] Giovana Sal, GLORY [address] [place] [address] 02/20/2025 2:30 PM EDT Office Visit [facility] OPTOMETRY [address] [place] [address] Valentina Brown, OD [address] [place] [address] documented as of this encounter Visit Diagnoses Diagnosis Diabetes mellitus type 2 in obese Type II or unspecified type diabetes mellitus without mention of complication, not stated as uncontrolled documented in this encounter Additional Health Concerns Assessment Noted Time PHQ-9 Depression Total Score: 7 11/04/19 24 2:44 PM EST documented as of this encounter Care Teams Brake Repairer Relationship Specialty Start Date End Date Megan Pathak ANP [address] [place] [address] PCP - General Family Medicine 02/28/20 [employer] 03/23/24 documented as of this encounter
--- OUTSIDE RECORDS SUMMARY | 2024-11-21 15:39 | XMS_ITS | Encounter Summary ---
Author Organization [employer] Address [address] [place] [address] 7t [place] [address] Care Team Providers Care Manager Front Name Role Phone Megan Pathak Primary Care Provider [phone] Reason for Visit * Reason Comments Med Refill Encounter Details Date Type Department Care Team (Late st Contact Info) Description 01/11/2023 Refill [facility] MEDICINE [address] [place], [place] [phone] Megan Pathak ANP 230 [place], [place] [phone] Chronic back pain greater than 3 months [...] suspected to have Coronavirus/COVID-19? No / Unsure 12/16/2022 10:59 AM EST documented as of this encounter Plan of Treatment Upcoming Encounters Date Type Department Care Team (Late st Contact Info) Description 12/29/2024 11:00 AM EDT Clinical Support [facility] MEDICINE [address] [place] [address] Giovana Sal RN [address] [place], [place] [phone] 02/20/2025 2:30 PM EDT Office Visit [facility] OPTOMETRY [address] [place] [address] Valentina Brown, RUDDY [address] [place] [address] documented as of this encounter Visit Diagnoses Diagnosis Chronic back pain greater than 3 months duration documented in this encounter Additional Health Concerns Assessment Noted Time PHQ-9 Depression Total Score: 5 01/05/20 23 11:10 AM EDT documented as of this encounter Care Teams Manager Front Relationship Specialty Start Date End Date Megan Pathak ANP [address] [place] [address] PCP - General Family Medicine 02/28/20 [employer] 03/23/24 documented as of this encounter
--- OUTSIDE RECORDS SUMMARY | 2024-11-21 15:39 | XMS_ITS | Encounter Summary ---
Author Organization [employer] Address [address] [facility] 7t [place] [address] Care Team Providers Care Civil Estimator Name Role Phone Megan Pathak Primary Care Provider [phone] Reason for Visit * Reason Onset Date Comments Prior Authorization 02/05/2023 Encounter Details Date Type Department Care Team ([facility] st Contact Info) Description 02/05/2023 Telephone [facility] MEDICINE 230 [place], [place] [phone] Megan Pathak ANP 230 [place], [place] [phone] Prior Authorization Social History Tobacco Use Types Packs/Day Years Used Date Smoking Tobacco: Never Assessed Alcohol Answer Date Recorded Frequency of Alcohol [...] * Telephone Encounter - Addison Reina - 02/05/2023 8:53 AM EDT Tc from pt needs a PA for HYDROcodone-acetaminophen ([place]) 7.5-325 MG tablet documented in this encounter Plan of Treatment Upcoming Encounters Date Type Department Care Team (Late st Contact Info) Description 12/29/2024 11:00 AM EDT Clinical Support [facility] MEDICINE [address] [place] [address] Giovana Sal, GLORY [address] [place] [address] 02/20/2025 2:30 PM EDT Office Visit [facility] OPTOMETRY [address] [place] [address] Valentina Brown, OD [address] [place] [address] documented as of this encounter Visit Diagnoses Not on filedocumented in this encounter Additional Health Concerns Assessment Noted Time PHQ-9 Depression Total Score: 5 01/05/20 23 11:10 AM EDT documented as of this encounter Care Teams Civil Estimator Relationship Specialty Start Date End Date Megan Pathak ANP [address] [place] [address] PCP - General Family Medicine 02/28/20 [employer] 03/23/24 documented as of this encounter
--- OUTSIDE RECORDS SUMMARY | 2024-11-21 15:39 | XMS_ITS | Encounter Summary ---
Author Organization [employer] Address [address] [facility] 7t [place] [address] Care Team Providers Care Director Franchise Sales Name Role Phone Megan Pathak Primary Care Provider [phone] Reason for Visit * Reason Onset Date Comments Referral 10/25/2024 Encounter Details Date Type Department Care Team ([facility] st Contact Info) Description 10/25/2024 Telephone [facility] MEDICINE [address] [place], [place] [phone] Megan Pathak ANP [address] [place], [place] [phone] Referral Social History Tobacco Use Types Packs/Day [...] encounter Miscellaneous Notes * Telephone Encounter - Aislinn Zurita RN - 10/25/2024 4:28 PM EST Telephone call returned to [facility] MARIN regarding below message. Informed that pt already has an active referral for podiatry. Gave contact information. She will assist pt in calling. * Telephone Encounter - Keiko Quevedo - 10/25/2024 1:17 PM EST Tc from [facility] visiting nurse requesting a referral for a animal daycare provider . If any questions please contact [facility]i [phone] documented in this encounter Plan of Treatment Upcoming Encounters Date Type Department Care Team (Late st Contact Info) Description 12/29/2024 11:00 AM EDT Clinical Support [facility] MEDICINE [address] [place], [place] [phone] Giovana Sal, GLORY [address] [place], [place] [phone] 02/20/2025 2:30 PM EDT Office Visit [facility] OPTOMETRY [address] [place] [address] Valentina Brown, RUDDY [address] [place] [address] documented as of this encounter Visit Diagnoses Not on filedocumented in this encounter Additional Health Concerns Assessment Noted Time PHQ-9 Depression Total Score: 2 02/03/20 24 4:00 PM EDT documented as of this encounter Care Teams Director Franchise Sales Relationship Specialty Start Date End Date Megan Pathak ANP [address] [place] [address] PCP - General Family Medicine 02/28/20 [employer] 03/23/24 documented as of this encounter
--- OUTSIDE RECORDS SUMMARY | 2024-11-21 15:39 | XMS_ITS | Encounter Summary ---
Author Organization [employer] Address [address] [facility] 7t [place] [address] Care Team Providers Care Librarian School Name Role Phone Megan Pathak Primary Care Provider [phone] Reason for Visit * Reason Onset Date Comments Med Refill 05/19/2024 Encounter Details Date Type Department Care Team ([facility] st Contact Info) Description 05/19/2024 Telephone [facility] MEDICINE 230 [place], [place] [phone] Megan Pathak ANP [address] [place], [place] [phone] Med Refill Social History Tobacco Use Types [...] encounter Miscellaneous Notes * Telephone Encounter - Pelon Goodman - 05/22/2024 9:41 AM EDT Tc from patient requesting the status of the medication below * Telephone Encounter - Nichole Og RN - 05/19/2024 11:57 AM EDT Pt requesting refill on Hydrocodone-acetaminophen 325 MG Last refill on 04/20/24 28 Day supply 0 Refills FRANKO with PCP: 03/13/2024 * Telephone Encounter - Boris Christianson - 05/19/2024 10:45 AM EDT TC from pt requesting medication refill. Medications needing refill: HYDROcodone-acetaminophen ([place]) 5-325 MG tablet To be sent to: [facility] documented in this encounter Plan of Treatment Upcoming Encounters Date Type Department Care Team (Late st Contact Info) Description 12/29/2024 11:00 AM EDT Clinical Support [facility] MEDICINE [address] [place] [address] Giovana Sal, RN [address] [place] [address] 02/20/2025 2:30 PM EDT Office Visit [facility] OPTOMETRY [address] [place] [address] Valentina Brown, RUDDY [address] [place] [address] documented as of this encounter Visit Diagnoses Not on filedocumented in this encounter Additional Health Concerns Assessment Noted Time PHQ-9 Depression Total Score: 2 02/03/20 24 4:00 PM EDT documented as of this encounter Care Teams Librarian School Relationship Specialty Start Date End Date Megan Pathak ANP [address] [place] [address] PCP - General Family Medicine 02/28/20 [employer] 03/23/24 documented as of this encounter
--- OUTSIDE RECORDS SUMMARY | 2024-11-21 15:39 | XMS_ITS | Encounter Summary ---
Author Organization [employer] Address [address] [facility] 7t [place] [address] Care Team Providers Care Utility Aircrewman Name Role Phone Megan Pathak Primary Care Provider [phone] Reason for Referral * Consultation (Routine) - Authorized Specialty Diagnoses / Procedures Referred By Contvernell t Referred To Contact Audiology Diagnoses Sensorineural hearing loss (SNHL) of both ears Megan Pathak ANP [address] [place] [address] Phone: tel: fax: [employer] Referral ID Status Reason Start Date Expiration Date Visits Requested Visits Authorized [id number] Authorized Specialty Services Required 11/06/2024 11/06/2025 6 6 Encounter Details Date Type Department Care Team (Late st Contact Info) Description 11/06/2024 Orders Only [facility] MEDICINE [address] [place], [place] [phone] Megan Pathak ANP [address] [place] [address] Sensorineural hearing loss (SNHL) of both ears (Primary Dx) Social History Tobacco Use Types Packs/Day Years [...] AM EDT documented as of this encounter Progress Notes * ERLINDA Banks - 11/06/2024 10:38 AM EST Diagnoses and all orders for this visit: Sensorineural hearing loss (SNHL) of both ears - Referral to Audiology; Future Patient needs new hearing aids -request referral to ENT however I think audiology is more appropriate. Will refer. documented in this encounter Plan of Treatment Upcoming Encounters Date Type Department Care Team (Late st Contact Info) Description 12/29/2024 11:00 AM EDT Clinical Support [facility] MEDICINE [address] [place] [address] Giovana Sal, RN [address] [place] [address] 02/20/2025 2:30 PM EDT Office Visit [facility] OPTOMETRY [address] [place] [address] Valentina Brown, OD [address] [place] [address] Scheduled Referrals Name Type Priority Associated Diagnoses Orde r Schedule Referral to Audiology Outpatient Referral Routine Sensorineural hearing loss (SNHL) of both ears Expected: 11/06/2024 (Approximate), Expires: 11/06/2025 documented as of this encounter Visit Diagnoses Diagnosis Sensorineural hearing loss (SNHL) of both ears- Primary documented in this encounter Additional Health Concerns Assessment Noted Time PHQ-9 Depression Total Score: 2 02/03/20 24 4:00 PM EDT documented as of this encounter Care Teams Utility Aircrewman Relationship Specialty Start Date End Date Megan Pathak ANP [address] [place] [address] PCP - General Family Medicine 02/28/20 [employer] 03/23/24 documented as of this encounter
--- NOTE | 2024-11-21 16:02 | MHC.AU.HA1 ---
Hearing Aid Evaluation Date of Visit: 11/21/24 Historical Information: Description of Hearing: Mild mixed hearing loss Ad, mild to moderate mixed hearing loss As. Current personal amplification information, if applicable: Fit with Audeo B 50 Direct in 2018, since lost, notes memory problems. Summary: Seen for evaluation. Not seen since 2018. Reports she lost her hearing aids not long after getting them in 2018. Notes memory problems, reports she put them somewhere to keep them safe and then lost. Reviewed amplification options and discussed establishing a routine to avoid losing the new hearing aids. Annette reports feeling that she will have better success with rechargeable hearing aids due to the routine of storing them in the same spot every night. Hearing Aid Prescription: Based on the individual?s shared listening needs, communication environments, dexterity, desire for connectivity, and personal preferences, the following prescription for amplification has been made: Right ear: Make, Model, Color: Phonak Audeo I 50 R silver Battery Size: Rechargeable Fast Food Team Member/Slim Tube: 1 M Type of Earmold/Dome/CShell/SlimTip: sm vented Left ear: Left ear prescription to be same as Right Hearing Aid above: Make, Model, Color: Phonak Audeo I 50 R Silver Battery Size: Rechargeable Fast Food Team Member/Slim Tube: 1M Type of Earmold/Dome/CShell/SlimTip: sm vented Plan of Care: Patient wishes to purchase hearing aids as prescribed Action Taken/Action Needed: Medical Clearance to be requested from PCP/ENT Hearing Instrument Fitting to be scheduled when materials arrive Primary Diagnosis: H90.6 Mixed Hearing Loss, Bilateral Signature: Provider: Tan Ludwig, [facility]
== END 2024-11-21 14:48 | disposition home or self-care (01) ==
LOC: HO.SH 14:47
PROVIDERS: Visit Provider Nurse Practitioner Primary Care
DX: Z01.118 Encounter for examination of ears and hearing with other abnormal findings (principal); Z46.1 Encounter for fitting and adjustment of hearing aid; H90.6 Mixed conductive and sensorineural hearing loss, bilateral
CPT/HCPCS: 92557; 92567; 92591

== ENCOUNTER 2025-02-19 17:28 | Outpatient (REF) | payer MEDICAID, SELFPAY ==
--- OUTSIDE RECORDS SUMMARY | 2025-02-19 17:31 | XMS_ITS | Encounter Summary ---
Author Organization [facility] Address [address] [place] [address] Care Team Providers Care Bakery Deliverer Name Role Phone Delano Reece MD Primary Care Provider Allyssa Thurston Pcp Primary Care Provider Megan Aguilar NP Primary Care Provider Tremaine jacobo Encounter Details Date Type Department Care Team Description 09/28/2016 Senior Telecommunications Specialist Report Medical Records [address] [place] [id number] Michael Garcia MD Social History Tobacco Use Types Packs/Day Years Used Date Smoking Tobacco: Former Cigarettes 0.3 18 Q uit: 10/11/1999 Smokeless Tobacco: Never Alcohol Use Standard Drinks/Week Comments No 0 (1 standard drink = 0.6 oz pur e alcohol) Sex Assigned at Date Recorded Not on file documented as of this encounter Plan of Treatment Not on file documented as of this encounter Visit Diagnoses Not on filedocumented in this encounter Care Teams Bakery Deliverer Relationship Specialty Start Date End Date Delano Reece MD PCP - General Internal Medicine 01/22/13 04/20/18 Je Thurston PCP - General Internal Medicine 04/21/18 02/24/24 Megan Pathak NP PCP - General Nurse Practioner Adult Health 02/25/24 documented as of this encounter
--- OUTSIDE RECORDS SUMMARY | 2025-02-19 17:31 | XMS_ITS | Encounter Summary ---
Author Organization [facility] Address [address] [place] [address] Care Team Providers Care Ore Crushing Dust Collector Name Role Phone Delano Reece MD Primary Care Provider Allyssa Thurston, Pcp Primary Care Provider Megan Aguilar NP Primary Care Provider Tremaine jacobo Reason for Visit * Reason Onset Date Comments Prior Authorization 12/07/2017 Encounter Details Date Type Department Care Team Description 12/07/2017 Telephone Adult Medicine [address] [phone] Delano Reece MD Prior Authorization Social History Tobacco Use Types Packs/Day Years Used Date Smoking Tobacco: Former Cigarettes 0.3 18 Q uit: 10/11/1999 Smokeless Tobacco: Never Alcohol Use Standard Drinks/Week Comments No 0 (1 standard drink = 0.6 oz pur e alcohol) Sex Assigned at Date Recorded Not on file documented as of this encounter Miscellaneous Notes * Telephone Encounter - Charlotte Huff M.A. - 12/08/2017 11:33 AM EST Message left for patient to return my call. * Telephone Encounter - Delano Reece - 12/07/2017 5:35 PM EST I do not think she has been using either bydueon or trulicity. Please find out from pt if she has been usign either injections * Telephone Encounter - Renea Faulkner M.A. - 12/07/2017 3:53 PM EST Please help. Last rx i see for the trulicity was done in 04/07/17 and d/gracy for an insurance coverage issue and i dont see a current script written. Is pt supposed to be on this or something else? Thank you Please reply back to [id number] Prior Auth Pool Renea Dominguez [facility] Prior Authorization Ext [id number] * Telephone Encounter - Deisy Norberto - 12/07/2017 3:27 PM EST Pre Authorization for Medication-do not complete and send this encounter unless you have the fax from the pharmacy. Is this a Cover My Meds request: [place] of Medication trulicity pen Dose of Medication 0.75 mg/0.5 ml How does patient take this med? Inject 0.75 mg under the skin once a week as directed What Pharmacy did the fax come from: [facility] fax #: [phone] [employer] Information from fax: What Prescription Plan does the patient have? n/a BIN/PCN if applicable: [id number] Cardholder ID:[id number] Person Code: n/a Relationship Code: n/a Help desk phone: n/a documented in this encounter Plan of Treatment Not on file documented as of this encounter Visit Diagnoses Not on filedocumented in this encounter Care Teams Ore Crushing Dust Collector Relationship Specialty Start Date End Date Divine Reece-MD Scar PCP - General Internal Medicine 01/22/13 04/20/18 [facility], Pcp PCP - General Internal Medicine 04/21/18 02/24/24 Megan Pathak NP PCP - General Nurse Practioner Adult Health 02/25/24 documented as of this encounter
--- OUTSIDE RECORDS SUMMARY | 2025-02-19 17:31 | XMS_ITS | Encounter Summary ---
Author Organization [facility] Address [address] [place] [address] Care Team Providers Care Chuck Wagon Cook Name Role Phone Delano Reece MD Primary Care Provider Allyssa Thurston, Pcp Primary Care Provider Megan Aguilar NP Primary Care Provider Tremaine jacobo Encounter Details Date Type Department Care Team Description 10/27/2013 Release of Information Medical Records [address] [place] [id number] Abstract, Provider Social History Tobacco Use Types Packs/Day Years Used Date Smoking Tobacco: Former Cigarettes Q uit: 10/11/1999 Smokeless Tobacco: Never Comments:1 year Alcohol Use Standard Drinks/Week Comments No 0 (1 standard drink = 0.6 oz pur e alcohol) Sex Assigned at Date Recorded Not on file documented as of this encounter Plan of Treatment Not on file documented as of this encounter Visit Diagnoses Not on filedocumented in this encounter Care Teams Chuck Wagon Cook Relationship Specialty Start Date End Date Delano Reece MD PCP - General Internal Medicine 01/22/13 04/20/18 Je Thurston PCP - General Internal Medicine 04/21/18 02/24/24 Megan Pathak NP PCP - General Nurse Practioner Adult Health 02/25/24 documented as of this encounter
--- OUTSIDE RECORDS SUMMARY | 2025-02-19 17:31 | XMS_ITS | Encounter Summary ---
Author Organization [employer] Address [address] [facility] 7t [place] [address] Care Team Providers Care Bakery Assistant Name Role Phone Megan Pathak Primary Care Provider [phone] Reason for Visit * Reason Comments Med Refill Encounter Details Date Type Department Care Team (Late st Contact Info) Description 02/04/2023 Refill [facility] MED & PEDS [address] [facility] [place] [phone] Megan Pathak ANP [address] [place], [place] [phone] Chronic back pain greater than 3 months [...] Care Team (Late st Contact Info) Description 02/20/2025 2:30 PM EDT Office Visit [facility] OPTOMETRY [address] [place], [place] [phone] Valentina Brown, OD [address] [place], [place] [phone] 03/09/2025 9:30 AM EDT Clinical Support [facility] MEDICINE [address] [place] [address] Giovana Sal RN [address] [place] [address] documented as of this encounter Visit Diagnoses Diagnosis Chronic back pain greater than 3 months duration documented in this encounter Additional Health Concerns Assessment Noted Time PHQ-9 Depression Total Score: 5 01/05/20 23 11:10 AM EDT documented as of this encounter Care Teams Bakery Assistant Relationship Specialty Start Date End Date Megan Pathak ANP [address] [place] [address] PCP - General Family Medicine 02/28/20 [employer] 03/23/24 documented as of this encounter
--- OUTSIDE RECORDS SUMMARY | 2025-02-19 17:31 | XMS_ITS | Encounter Summary ---
Author Organization [employer] Address [address] [facility] 7t [place] [address] Care Team Providers Care Upholstery Restorer Name Role Phone Megan Pathak ERLINDA Primary Care Provider [phone] Encounter Details Date Type Department Care Team (Late Contact Info) Description 04/19/2023 Orders Only [facility] CHC MED & PEDS [address] [place], [place] [phone] Alley Yan LPN Social History Tobacco Use [...] Department Care Team (Late Contact Info) Description 02/20/2025 2:30 PM EDT Office Visit [facility] OPTOMETRY [address] [place] [address] Valentina Brown, OD [address] [place] [address] 03/09/2025 9:30 AM EDT Clinical Support [facility] MEDICINE [address] [place] [address] Giovana Sal, RN [address] [place] [address] documented as of this encounter Visit Diagnoses Not on filedocumented in this encounter Additional Health Concerns Assessment Noted Time PHQ-9 Depression Total Score: 1 04/12/20 23 11:19 AM EDT documented as of this encounter Care Teams Upholstery Restorer Relationship Specialty Start Date End Date Megan Pathak ANP [address] [place] [address] PCP - General Family Medicine 02/28/20 [employer] 03/23/24 documented as of this encounter
--- OUTSIDE RECORDS SUMMARY | 2025-02-19 17:31 | XMS_ITS | Encounter Summary ---
Author Organization [facility] Address [address] [place] [address] Care Team Providers Care Mobile Engineer Name Role Phone Delano Reece MD Primary Care Provider Allyssa Thurston, Pcp Primary Care Provider Megan Aguilar NP Primary Care Provider Tremaine jacobo Encounter Details Date Type Department Care Team Description 04/10/2014 Release of Information Medical Records [address] [place] [id number] Abstract, Provider Social History Tobacco Use Types [...] on filedocumented in this encounter Care Teams Mobile Engineer Relationship Specialty Start Date End Date Delano Reece MD PCP - General Internal Medicine 01/22/13 04/20/18 Je Thurston PCP - General Internal Medicine 04/21/18 02/24/24 Megan Pathak NP PCP - General Nurse Practioner Adult Health 02/25/24 documented as of this encounter
--- OUTSIDE RECORDS SUMMARY | 2025-02-19 17:31 | XMS_ITS | Encounter Summary ---
Author Organization [facility] Address [address] [place] [address] Care Team Providers Care Fleet Technician Name Role Phone Delano Reece MD Primary Care Provider Allyssa Thurston, Pcp Primary Care Provider Megan Aguilar NP Primary Care Provider Tremaine jacobo Encounter Details Date Type Department Care Team Description 03/23/2016 Hospital Medical Records [address] [place] [id number] Marilee Kaplan Social History Tobacco Use Types Packs/Day Years [...] on filedocumented in this encounter Care Teams Fleet Technician Relationship Specialty Start Date End Date Delano Reece MD PCP - General Internal Medicine 01/22/13 04/20/18 Je Thurston PCP - General Internal Medicine 04/21/18 02/24/24 Megan Pathak NP PCP - General Nurse Practioner Adult Health 02/25/24 documented as of this encounter
--- OUTSIDE RECORDS SUMMARY | 2025-02-19 17:31 | XMS_ITS | Encounter Summary ---
Author Organization [employer] Address [address] [facility] 7t [place] [address] Care Team Providers Care Marine Equipment Sales Engineer Name Role Phone Megan Pathak Primary Care Provider [phone] Reason for Visit * Reason Comments Med Refill Encounter Details Date Type Department Care Team (Late st Contact Info) Description 02/03/2023 Refill [facility] CHC MED & PEDS [address] [facility] [place] [phone] Meagn Pathak ANP [address] [place], [place] [phone] Chronic back pain greater than 3 months [...] Description 02/20/2025 2:30 PM EDT Office Visit [facility] OPTOMETRY [address] [place], [place] [phone] Valentina Brown, OD [address] [place], [place] [phone] 03/09/2025 9:30 AM EDT Clinical Support [facility] MEDICINE [address] [place] [address] Giovana Sal RN [address] [place] [address] documented as of this encounter Visit Diagnoses Diagnosis Chronic back pain greater than 3 months duration documented in this encounter Additional Health Concerns Assessment Noted Time PHQ-9 Depression Total Score: 5 01/05/20 23 11:10 AM EDT documented as of this encounter Care Teams Marine Equipment Sales Engineer Relationship Specialty Start Date End Date Megan Pathak ANP [address] [place] [address] PCP - General Family Medicine 02/28/20 [employer] 03/23/24 documented as of this encounter
--- OUTSIDE RECORDS SUMMARY | 2025-02-19 17:31 | XMS_ITS | Encounter Summary ---
Author Organization [facility] Address [address] [place] [address] Care Team Providers Care Plastic Surgery Technician Name Role Phone Delano Reece MD Primary Care Provider Allyssa Thurston, Pcp Primary Care Provider Megan Aguilar NP Primary Care Provider Tremaine jacobo Encounter Details Date Type Department Care Team Description 12/12/2013 Pt. Non Urgent Medic al Question Adult Medicine [address] [phone] Delano Reece MD Social History Tobacco Use Types Packs/Day Years Used Date Smoking Tobacco: Former Cigarettes Q uit: 10/11/1999 Smokeless Tobacco: Never Comments:1 year Alcohol Use Standard Drinks/Week Comments No 0 (1 standard drink = 0.6 oz pur e alcohol) Sex Assigned at Date Recorded Not on file documented as of this encounter Progress Notes * Brandie Ibarra L.P.N. - 12/12/2013 11:30 AM ESTFrom: ANNETTE LYON To: Delano Reece MD Sent: WedDec 12, 2013 7:56 AM Subject: No show Hello, I understand that I have had many no shows, and I take full responsibility, my rides are mostly non reliable, and that is my fault, my sister who left to [place] in August, was the only one that took me to all of my appointments, and she left me, and I have no one, I understand that is notan excuse, I feel like everyone wants to leave me, my therapist left me, because of no ride, and now my med doctor also left me, so I really haven't had a good nights sleep in 2 months, I have no sleeping pills, so I'm tired, and I'm exhausted, and when I read you wanted to let me go, I totally understood, but sometimes, when I'm there, I m afraid to tell you that I'm tired, that there is other stuff wrong with me, because you want to leave so fast out of the room, I feel like your annoyed withme, and for that I'm sorry, I don't know what else to do but beg that you don't let me go, I'm trying very hard to keep my appointments but I'm not doing a very good job, I understand if you want to l eave me, I'm just tired, and I know that's not an excuse, but all I can say is I m sorry, and I will try my hardest to keep my appointments. documented in this encounter Plan of Treatment Not on file documented as of this encounter Visit Diagnoses Not on filedocumented in this encounter Care Teams Plastic Surgery Technician Relationship Specialty Start Date End Date Divine Reece-MD Scar PCP - General Internal Medicine 01/22/13 04/20/18 [facility], Pcp PCP - General Internal Medicine 04/21/18 02/24/24 Megan Pathak NP PCP - General Nurse Practioner Adult Health 02/25/24 documented as of this encounter
--- OUTSIDE RECORDS SUMMARY | 2025-02-19 17:31 | XMS_ITS | Encounter Summary ---
Author Organization [facility] Address [address] [place] [address] Care Team Providers Care Dermatology Teacher Name Role Phone Robson Fabian MD Primary Care Provider [phone] Delano Reece MD Primary Care Provider Allyssa Thurston, Pcp Primary Care Provider Megan Aguilar NP Primary Care Provider Tremaine jacobo Encounter Details Date Type Department Care Team Description 02/26/2012 Hospital Medical Records [address] [place], [place] [phone] Moises Robison Social History Tobacco Use Types Packs/Day Years [...] on filedocumented in this encounter Care Teams Dermatology Teacher Relationship Specialty Start Date End Date Robson Fabian MD [address] [place], [place] [phone] PCP - General 05/07/03 01/21/13 Delano Reece MD [address] [place] [address] PCP - General Internal Medicine 01/22/13 04/20/18 [facility] Pcp [address] [place] [address] PCP - General Internal Medicine 04/21/18 02/24/24 Megan Pathak NP [address] [place] [address] PCP - General Nurse Practioner Adult Health 02/25/24 documented as of this encounter
--- OUTSIDE RECORDS SUMMARY | 2025-02-19 17:31 | XMS_ITS | Encounter Summary ---
Author Organization [facility] Address [address] [place] [address] Care Team Providers Care Silk Screen Layout Drafter Name Role Phone Delano Reece MD Primary Care Provider Allyssa Thurston, Pcp Primary Care Provider Megan Aguilar NP Primary Care Provider Tremaine jacobo Encounter Details Date Type Department Care Team Description 10/25/2017 [facility] Medical Records [address] [place] [id number] Abstract, Provider Social History Tobacco Use Types [...] on filedocumented in this encounter Care Teams Silk Screen Layout Drafter Relationship Specialty Start Date End Date Delano Reece MD PCP - General Internal Medicine 01/22/13 04/20/18 Je Thurston PCP - General Internal Medicine 04/21/18 02/24/24 Megan Pathak NP PCP - General Nurse Practioner Adult Health 02/25/24 documented as of this encounter
--- OUTSIDE RECORDS SUMMARY | 2025-02-19 17:31 | XMS_ITS | Encounter Summary ---
Author Organization [facility] Address [address] [place] [address] Care Team Providers Care Knitting Inspector Name Role Phone Delano Reece MD Primary Care Provider Allyssa Thurston, Pcp Primary Care Provider Megan Aguilar NP Primary Care Provider Tremaine jacobo Reason for Visit * Reason Onset Date Comments Provider Call Back 04/26/2015 Encounter Details Date Type Department Care Team Description 04/26/2015 Telephone Adult Medicine [address] [phone] Delano Reece MD Provider Call Back Social History Tobacco Use Types Packs/Day Years Used Date Smoking Tobacco: Former Cigarettes Q uit: 10/11/1999 Smokeless Tobacco: Never Comments:1 year Alcohol Use Standard Drinks/Week Comments No 0 (1 standard drink = 0.6 oz pur e alcohol) Sex Assigned at Date Recorded Not on file documented as of this encounter Miscellaneous Notes * Telephone Encounter - An Ibarra APRN - 04/26/2015 4:57 PM EDT I have refilled med, she can review my message on my chart about why it was denied previously. There can be an interaction with her new antidepressant. She can decide if she still wants to take the meds together or not * Telephone Encounter - Carey Villasenor M.A. - 04/26/2015 1:30 PM EDT Spoke with pt states that she has neck and back pain and flexeril is the only thing that helps, shewas wondering why the request was denied * Telephone Encounter - Radha Waldron - 04/26/2015 11:00 AM EDT PATIENT IS CALLING BACK. * Telephone Encounter - Radha Waldron - 04/26/2015 9:39 AM EDT PATIENT IS RETURNING THE NURSE CALLED. PLEASE SEE CLOSED ENCOUNTER FROM 04/24/2015 ABOUT REFILL. documented in this encounter Plan of Treatment Not on file documented as of this encounter Visit Diagnoses Not on filedocumented in this encounter Care Teams Knitting Inspector Relationship Specialty Start Date End Date Divine Reece-MD Scar PCP - General Internal Medicine 01/22/13 04/20/18 [facility] Pcp PCP - General Internal Medicine 04/21/18 02/24/24 Megan Pathak NP PCP - General Nurse Practioner Adult Health 02/25/24 documented as of this encounter
--- OUTSIDE RECORDS SUMMARY | 2025-02-19 17:31 | XMS_ITS | Encounter Summary ---
Author Organization [facility] Address [address] [place] [address] Care Team Providers Care Retail Department Manager Name Role Phone Robson Fabian MD Primary Care Provider [phone] Delano Reece MD Primary Care Provider Allyssa Thurston, Pcp Primary Care Provider Megan Aguilar NP Primary Care Provider Tremaine jacobo Encounter Details Date Type Department Care Team Description 11/01/2011 Pt. Non Urgent Medic al Question Physiatry [address] [address] Deloris Briceno PA-C Social History Tobacco Use Types Packs/Day Years Used Date Smoking Tobacco: Former Cigarettes Q uit: 10/11/1999 Smokeless Tobacco: Never Comments:1 year Alcohol Use Standard Drinks/Week Comments No 0 (1 standard drink = 0.6 oz pur e alcohol) Sex Assigned at Date Recorded Not on file documented as of this encounter Progress Notes * Carey Oneill L.P.N. - 11/02/2011 8:35 AM ESTFrom: ANNETTE LYON To: Deloris Briceno PA-C Sent: Cate Nov 01, 2011 10:08 AM Subject: Rebecca Fernandez, My name is Annette, and I was seen by you around two weeks ago, and I had injections put in my back, Everything was fine, but now I m getting sharp pains in my back, Is that normal? Thank you very much! documented in this encounter Plan of Treatment Not on file documented as of this encounter Visit Diagnoses Not on filedocumented in this encounter Care Teams Retail Department Manager Relationship Specialty Start Date End Date Robson Fabian MD [address] [place] [address] PCP - General 05/07/03 01/21/13 Delano Reece MD [address] [place] [address] PCP - General Internal Medicine 01/22/13 04/20/18 [facility], Pcp [address] [place] [address] PCP - General Internal Medicine 04/21/18 02/24/24 Megan Pathak NP [address] [place] [address] PCP - General Nurse Practioner Adult Health 02/25/24 documented as of this encounter
--- OUTSIDE RECORDS SUMMARY | 2025-02-19 17:31 | XMS_ITS | Encounter Summary ---
Author Organization [facility] Address [address] [place] [address] Care Team Providers Care Cost Controller Name Role Phone Delano Reece MD Primary Care Provider Allyssa Thurston, Pcp Primary Care Provider Megan Aguilar NP Primary Care Provider Tremaine jacobo Encounter Details Date Type Department Care Team Description 04/25/2014 Pt. Non Urgent Medic al Question [address] [address] An Ibarra APRN Social History Tobacco Use Types Packs/Day Years Used Date Smoking Tobacco: Former Cigarettes Q uit: 10/11/1999 Smokeless Tobacco: Never Comments:1 year Alcohol Use Standard Drinks/Week Comments No 0 (1 standard drink = 0.6 oz pur e alcohol) Sex Assigned at Date Recorded Not on file documented as of this encounter Progress Notes * Carey Villasenor M.A. - 04/25/2014 11:00 AM EDTFrom: Annette Kim To: An Ibarra APRN Sent: 04/25/2014 10:58 AM EDT Subject: Rebecca Thank you for the test, and happy and relieved for the results! documented in this encounter Plan of Treatment Not on file documented as of this encounter Visit Diagnoses Not on filedocumented in this encounter Care Teams Cost Controller Relationship Specialty Start Date End Date Delano Reece MD PCP - General Internal Medicine 01/22/13 04/20/18 [facility], Pcp PCP - General Internal Medicine 04/21/18 02/24/24 Megan Pathak NP PCP - General Nurse Practioner Adult [facility] 02/25/24 documented as of this encounter
--- OUTSIDE RECORDS SUMMARY | 2025-02-19 17:31 | XMS_ITS | Encounter Summary ---
Author Organization [facility] Address [address] [place] [address] Care Team Providers Care Body Trimmer Upholsterer Name Role Phone Delano Reece MD Primary Care Provider Allyssa Thurston, Pcp Primary Care Provider Megan Aguilar NP Primary Care Provider Tremaine jacobo Encounter Details Date Type Department Care Team Description 01/08/2014 Pt. Non Urgent Medic al Question Adult Medicine [address] [phone] Delano Reece MD Social History Tobacco Use Types Packs/Day Years Used Date Smoking Tobacco: Former Cigarettes Q uit: 10/11/1999 Smokeless Tobacco: Never Comments:1 year Alcohol Use Standard Drinks/Week Comments No 0 (1 standard drink = 0.6 oz pur e alcohol) Sex Assigned at Date Recorded Not on file documented as of this encounter Progress Notes * Carey Villasenor M.A. - 01/08/2014 11:39 AM EDTFrom: ANNETTE LYON To: Delano Reece MD Sent: WedJan 08, 2014 9:57 AM Subject: Hello I have found the letter that you sent me and it was for Pulmonology, and I did in fact make an appointment for that. I don't want me blood pressure, and High Cholestrol taken away because it is always high when they take it, therefore I really need it, thank you. Annette Lyon. documented in this encounter Plan of Treatment Not on file documented as of this encounter Visit Diagnoses Not on filedocumented in this encounter Care Teams Body Trimmer Upholsterer Relationship Specialty Start Date End Date Delano Reece MD PCP - General Internal Medicine 01/22/13 04/20/18 [facility], Pcp PCP - General Internal Medicine 04/21/18 02/24/24 Megan Pathak NP PCP - General Nurse Practioner Adult Health 02/25/24 documented as of this encounter
--- OUTSIDE RECORDS SUMMARY | 2025-02-19 17:31 | XMS_ITS | Encounter Summary ---
Author Organization [facility] Address [address] [place] [address] Care Team Providers Care Lpn Rn Name Role Phone Delano Reece MD Primary Care Provider Allyssa Thurston, Pcp Primary Care Provider Megan Aguilar NP Primary Care Provider Tremaine jacobo Encounter Details Date Type Department Care Team Description 09/23/2017 Release of Information Medical Records [address] [place] [id number] Abstract, Provider Social History Tobacco Use Types [...] on filedocumented in this encounter Care Teams Lpn Rn Relationship Specialty Start Date End Date Delano Reece MD PCP - General Internal Medicine 01/22/13 04/20/18 Je Thurston PCP - General Internal Medicine 04/21/18 02/24/24 Megan Pathak NP PCP - General Nurse Practioner Adult Health 02/25/24 documented as of this encounter
--- OUTSIDE RECORDS SUMMARY | 2025-02-19 17:31 | XMS_ITS | Clinical Summary ---
Author Organization [address] [facility] Address [address] [place] [address] Phone Care Team Providers Care Manager Truck Name Role Phone Megan Pathak NP Primary Care Provider [phone] Social History Tobacco Use Types Packs/Day Years Used Date Smoking Tobacco: Never Assessed Comments Unknown Sex and Gender Information Value Date Recorded Sex Assigned at Not on file Legal Sex Female 2:18 PM EST Gender Identity Not on file Sexual Orientation Not on file Plan of Treatment Health Maintenance Due Date Last Done Comments Diabetes: Annual GFR (Glomerular Filtration Rate) 1972 Diabetes: Annual Foot Exam 1982 Diabetes: Annual Retina Eye Exam 1982 Hepatitis B Vaccines (3 of 3 - 19+ 3-dose series) 01/26/2008 10/26/2007, 07/27/2007 Pneumococcal Vaccine: 50+ Years (2 of 2 - PCV) 12/08/2008 12/09/2007 Pneumococcal Vaccine: Pediatrics (0 to 5 Years) and At-Risk Patients (6 to 64 Years) (2 of 2 - PCV) 12/08/2008 12/09/2007 Breast Cancer Screening 12/01/2019 12/01/2017 Zoster Vaccines (1 of 2) 2022 COVID-19 Vaccine ( season) 2024 Cholesterol Screening (Lipid Panel) 12/16/2024 Colorectal Cancer Screening: Colonoscopy 12/16/2024 Depression Screening 12/16/2024 Diabetes: Annual Urine Albumin-Creatinine Ratio (uACR) 12/16/2024 Diabetes: Blood Sugar Control Test (HGBA1C) 12/16/2024 HIV Screening 12/16/2024 Hepatitis C Screening 12/16/2024 Hypertension/CHF/CAD Annual BMP Blood Test 12/16/2024 Social Influencers of Health Screening 12/16/2024 Influenza Vaccine (Season Ended) 2025 08/10/2016, 07/11/2015, 07/31/2013, Additional history exists DTaP,Tdap,and Td Vaccines (3 - Td or Tdap) 11/16/2027 11/16/2017, 12/09/2007 HIB Vaccines Aged Out No longer eligi [...] patient's age to complete this topic Meningococcal B Vaccine Aged Out No l onger eligible based on patient's age to complete [...] Breast cancer risk category Low (<15%) An Ibarra NP IMG XR PROCEDURES Final Resul t from Last 3 Months or Most Recently Relevant to Health Maintenance Insurance [place] Care Teams Manager Truck Relationship Specialty Start Date End Date Megan Pathak NP [address] [place] [id number] PCP - General 02/15/25
--- OUTSIDE RECORDS SUMMARY | 2025-02-19 17:31 | XMS_ITS | Encounter Summary ---
Author Organization [facility] Address [address] [place] [address] Care Team Providers Care Mds Rn Name Role Phone Delano Reece MD Primary Care Provider Allyssa Thurston, Pcp Primary Care Provider Megan Aguilar NP Primary Care Provider Tremaine jacobo Encounter Details Date Type Department Care Team Description 10/31/2014 TITLE MANAGER/[place] Report Medical Records [address] [place] [address] Abstract, Provider Social History Tobacco Use Types [...] on filedocumented in this encounter Care Teams Mds Rn Relationship Specialty Start Date End Date Delano Reece MD PCP - General Internal Medicine 01/22/13 04/20/18 Je Thurston PCP - General Internal Medicine 04/21/18 02/24/24 Megan Pathak NP PCP - General Nurse Practioner Adult Health 02/25/24 documented as of this encounter
--- OUTSIDE RECORDS SUMMARY | 2025-02-19 17:31 | XMS_ITS | Encounter Summary ---
Author Organization [facility] Address [address] [place] [address] Care Team Providers Care Laboratory Chief Name Role Phone Delano Reece MD Primary Care Provider Allyssa Thurston, Pcp Primary Care Provider Megan Aguilar NP Primary Care Provider Tremaine jacobo Reason for Visit * Reason Comments E-prescribe Rx Request Encounter Details Date Type Department Care Team Description 08/16/2016 Refill Adult Medicine [address] [address] An Ibarra APRN E-prescribe Rx Request Social History Tobacco Use Types Packs/Day Years Used Date Smoking Tobacco: Former Cigarettes 0.3 18 Q uit: 10/11/1999 Smokeless Tobacco: Never Alcohol Use Standard Drinks/Week Comments No 0 (1 standard drink = 0.6 oz pur e alcohol) Sex Assigned at Date Recorded Not on file documented as of this encounter Miscellaneous Notes * Telephone Encounter - Ivy Young - 08/17/2016 11:22 AM EST Patient would like script to be: E-PRESCRIBED/FAXED TO PHARMACY WHEN WAS THE PATIENT'S LAST APPOINTMENT IN ADULT MEDICINE? 06/23/16 WHEN WAS THE LAST TIME THE PATIENT SAW THEIR PCP? Same as above Does patient have an upcoming appointment? Yes 10/01/16 (THE MEDICATION REQUESTED IS ON THE MED LIST ABOVE) All of the medications requested were on the CURRENT MEDS list Did you check the Pharmacy information above?: YES Patient wants: 30 -day supply Is this a mail order prescription request ? NO Patients current insurance carrier is: Payor: [employer] FFS / Plan: FFS HMO $0 [employer] [id number] / Product Type: MEDICAID RISK documented in this encounter Plan of Treatment Not on file documented as of this encounter Visit Diagnoses Not on filedocumented in this encounter Care Teams Laboratory Chief Relationship Specialty Start Date End Date Divine Reece-MD Scar PCP - General Internal Medicine 01/22/13 04/20/18 [facility] - [facility] 04/21/18 02/24/24 Megan Pathak NP PCP - General Nurse Practioner Adult Health 02/25/24 documented as of this encounter
--- OUTSIDE RECORDS SUMMARY | 2025-02-19 17:31 | XMS_ITS | Encounter Summary ---
Author Organization [employer] Address [address] [place] [address] Care Team Providers Care Hydrodynamicist Name Role Phone Megan Pathak Primary Care Provider [phone] Reason for Visit * Reason Onset Date Comments Med Refill 12/20/2023 Encounter Details Date Type Department Care Team ([facility] st Contact Info) Description 12/20/2023 Telephone [facility] MEDICINE [address] [place], [place] [phone] Megan Pathak ANP [address] [place], [place] [phone] Med Refill Social History Tobacco Use Types [...] requesting medication refill. Medications needing refill: HYDROcodone-acetaminophen (Jackson) 7.5-325 MG tablet To be sent to: [facility] Pharmacy documented in this encounter Plan of Treatment Upcoming Encounters Date Type Department Care Team (Late st Contact Info) Description 02/20/2025 2:30 PM EDT Office Visit [facility] OPTOMETRY [address] [place] [address] Valentina Brown, OD [address] [place] [address] 03/09/2025 9:30 AM EDT Clinical Support [facility] MEDICINE [address] [place] [address] Giovana Sal RN [address] [place] [address] documented as of this encounter Visit Diagnoses Not on filedocumented in this encounter Additional Health Concerns Assessment Noted Time PHQ-9 Depression Total Score: 0 12/07/19 24 9:26 AM EST documented as of this encounter Care Teams Hydrodynamicist Relationship Specialty Start Date End Date Megan Pathak ANP [address] [place] [address] PCP - General Family Medicine 02/28/20 [facility] 03/23/24 documented as of this encounter
--- OUTSIDE RECORDS SUMMARY | 2025-02-19 17:31 | XMS_ITS | Encounter Summary ---
Author Organization [facility] Address [address] [place] [address] Care Team Providers Care Entertainment Director Name Role Phone Delano Reece MD Primary Care Provider Allyssa Thurston, Pcp Primary Care Provider Megan Aguilar NP Primary Care Provider Tremaine jacobo Encounter Details Date Type Department Care Team Description 02/28/2014 Pt. Non Urgent Medic al Question [facility] [address] [place] [phone] Argentina Finley, Pharm.D Social History Tobacco Use Types Packs/Day Years [...] on filedocumented in this encounter Care Teams Entertainment Director Relationship Specialty Start Date End Date Delano Reece MD PCP - General Internal Medicine 01/22/13 04/20/18 Je Thurston PCP - General Internal Medicine 04/21/18 02/24/24 Megan Pathak NP PCP - General Nurse Practioner Adult Health 02/25/24 documented as of this encounter
--- OUTSIDE RECORDS SUMMARY | 2025-02-19 17:31 | XMS_ITS | Encounter Summary ---
Author Organization [employer] Address [address] [facility] [address] [place] [address] Care Team Providers Care Traffic Coordinator Name Role Phone Megan Pathak ERLINDA Primary Care Provider [phone] Encounter Details Date Type Department Care Team (Late st Contact Info) Description 03/30/2023 Orders Only [facility] CH[facility] MED & PEDS [address] [place], [place] [phone] Alley Yan LPN Social History Tobacco Use [...] Description 02/20/2025 2:30 PM EDT Office Visit [facility] OPTOMETRY [address] [place] [address] Valentina Brown, OD [address] [place] [address] 03/09/2025 9:30 AM EDT Clinical Support [facility] MEDICINE [address] [place] [address] Giovana Sal, GLORY [address] [place] [address] documented as of this encounter Visit Diagnoses Not on filedocumented in this encounter Additional Health Concerns Assessment Noted Time PHQ-9 Depression Total Score: 2 02/16/20 23 10:10 AM EDT documented as of this encounter Care Teams Traffic Coordinator Relationship Specialty Start Date End Date Megan Pathak ANP [address] [place] [address] PCP - General Family Medicine 02/28/20 [employer] 03/23/24 documented as of this encounter
--- OUTSIDE RECORDS SUMMARY | 2025-02-19 17:31 | XMS_ITS | Encounter Summary ---
Author Organization [facility] Address [address] [place] [address] Care Team Providers Care Services Mgr Name Role Phone Delano Reece MD Primary Care Provider Allyssa Thurston, Pcp Primary Care Provider Megan Aguilar NP Primary Care Provider Tremaine jacobo Encounter Details Date Type Department Care Team Description 01/28/2016 Release of Information Medical Records [address] [place] [id number] Abstract, Provider Social History Tobacco Use Types [...] on filedocumented in this encounter Care Teams Services Mgr Relationship Specialty Start Date End Date Delano Reece MD PCP - General Internal Medicine 01/22/13 04/20/18 Je Thurston PCP - General Internal Medicine 04/21/18 02/24/24 Megan Pathak NP PCP - General Nurse Practioner Adult Health 02/25/24 documented as of this encounter
--- OUTSIDE RECORDS SUMMARY | 2025-02-19 17:31 | XMS_ITS | Encounter Summary ---
Author Organization [facility] Address [address] [place] [address] Care Team Providers Care Antenna Engineer Name Role Phone Delano Reece MD Primary Care Provider Allyssa Thurston, Pcp Primary Care Provider Megan Aguilar NP Primary Care Provider Tremaine jacobo Encounter Details Date Type Department Care Team Description 11/21/2013 Pt. Non Urgent Medic al Question Adult Medicine [address] [phone] Delano Reece MD Social History Tobacco Use Types Packs/Day Years Used Date Smoking Tobacco: Former Cigarettes Q uit: 10/11/1999 Smokeless Tobacco: Never Comments:1 year Alcohol Use Standard Drinks/Week Comments No 0 (1 standard drink = 0.6 oz pur e alcohol) Sex Assigned at Date Recorded Not on file documented as of this encounter Progress Notes * Brandie JonesPAdrianaNAdriana - 11/21/2013 9:11 AM ESTFrom: ANNETTE LYON To: Delano Reece MD Sent: WedNov 21, 2013 7:18 AM Subject: Rebecca Reece, I had an appointment with you recently, and you discuss doing a sleep study, I havenot heard back from anyone about that, my friend is willing to lend me her car whenever that appointment is for, I haven't been able to sleep since they stopped giving me my amitryptiline, because I no longer see therapist at [facility] they also terminated my seeing the doctor that prescribes my sleeping and anxiety medication, I would like to make an appointment for that sleep study please, thank you. Annette Lyon documented in this encounter Plan of Treatment Not on file documented as of this encounter Visit Diagnoses Not on filedocumented in this encounter Care Teams Antenna Engineer Relationship Specialty Start Date End Date Divine Reece-MD Scar PCP - General Internal Medicine 01/22/13 04/20/18 [facility], Pcp PCP - General Internal Medicine 04/21/18 02/24/24 Megan Pathak NP PCP - General Nurse Practioner Adult Health 02/25/24 documented as of this encounter"
--- OUTSIDE RECORDS SUMMARY | 2025-02-19 17:31 | XMS_ITS | Encounter Summary ---
Author Organization [facility] Address [address] [place] [address] Care Team Providers Care Veterinary Medical Officer Name Role Phone Delano Reece MD Primary Care Provider Allyssa Thurston, Pcp Primary Care Provider Megan Aguilar NP Primary Care Provider Tremaine jacobo Encounter Details Date Type Department Care Team Description 10/30/2014 Hereditary Cancer Qu iz Results Medical Records [address] [place] [address] Abstract, Provider Social History Tobacco Use Types [...] on filedocumented in this encounter Care Teams Veterinary Medical Officer Relationship Specialty Start Date End Date Delano Reece MD PCP - General Internal Medicine 01/22/13 04/20/18 Je Thurston PCP - General Internal Medicine 04/21/18 02/24/24 Megan Pathak NP PCP - General Nurse Practioner Adult Health 02/25/24 documented as of this encounter
--- OUTSIDE RECORDS SUMMARY | 2025-02-19 17:31 | XMS_ITS | Encounter Summary ---
Author Organization [facility] Address [address] [place] [address] Care Team Providers Care Wardrobe Manager Name Role Phone Delano Reece MD Primary Care Provider Allyssa Thurston, Pcp Primary Care Provider Unavailabl e Megan Pathak NP Primary Care Provider Unavailabl e Reason for Referral * Specialist (Routine) - Authorized/Booked Specialty Diagnoses / Procedures Referred By Melissa roche Referred To Contact Pulmonology Procedures REFERRAL TO PULMONOLOGY Delano Reece MD [address] [place] [address] [place] [address] Referral ID Status Reason Start Date Expiration Date V isits Requested Visits Authorized NOT REQUIRED Authorized/ Booked 01/04/2014 01/04/2015 1 1 Reason for Visit * Reason Onset Date Comments REFERRAL 01/04/2014 Encounter Details Date Type Department Care Team Description 01/04/[address] [facility] [address] [place] [address] Howard López MD REFERRAL Social History Tobacco Use Types Packs/Day Years Used Date Smoking Tobacco: Former Cigarettes Q uit: 10/11/1999 Smokeless Tobacco: Never Comments:1 year Alcohol Use Standard Drinks/Week Comments No 0 (1 standard drink = 0.6 oz pur e alcohol) Sex Assigned at Date Recorded Not on file documented as of this encounter Miscellaneous Notes * Telephone Encounter - Delano Reece - 01/04/2014 11:48 AM EDT Sleep study ordered na dpulmo consult done as well * Telephone Encounter - Jane Noyola - 01/04/2014 11:04 AM EDT Please review. No new order appears on our sleep study schedule. * Telephone Encounter - Delano Reece - 01/04/2014 10:15 AM EDT Slee study re-ordered * Telephone Encounter - Jane Noyola - 01/04/2014 9:51 AM EDT Pt called Sleep Lab to schedule sleep study. Informed pt order removed from sleep study schedule due to no response. Pt provided cell phone number to contact. Please place order for pt's sleep study so I may schedule this pt's sleep study, if appropriate. documented in this encounter Plan of Treatment Not on file documented as of this encounter Visit Diagnoses Diagnosis Obesity, unspecified Unspecified essential hypertension documented in this encounter Care Teams Wardrobe Manager Relationship Specialty Start Date End Date Delano Reece MD PCP - General Internal Medicine 01/22/13 04/20/18 [facility], Pcp PCP - General Internal Medicine 04/21/18 02/24/24 Megan Pathak NP PCP - General Nurse Practioner Adult Health 02/25/24 documented as of this encounter
--- OUTSIDE RECORDS SUMMARY | 2025-02-19 17:31 | XMS_ITS | Encounter Summary ---
Author Organization [employer] Address [address] [facility] 7t [place] [address] Care Team Providers Care Drying Can Worker Name Role Phone Megan Pathak Primary Care Provider [phone] Reason for Visit * Reason Comments Med Refill Encounter Details Date Type Department Care Team (Late Contact Info) Description 01/11/2023 Refill [facility] MEDICINE [address] [place], [place] [phone] Megan Pathak ANP [address] [place] [address] Chronic back pain greater than 3 months [...] Description 02/20/2025 2:30 PM EDT Office Visit [facility] OPTOMETRY [address] [place], [place] [phone] Kevin, Valentina, OD [address] [place], [place] [phone] 03/09/2025 9:30 AM EDT Clinical Support [facility] MEDICINE [address] [place] [address] Giovana Sal, GLORY [address] [place] [address] documented as of this encounter Visit Diagnoses Diagnosis Chronic back pain greater than 3 months duration documented in this encounter Additional Health Concerns Assessment Noted Time PHQ-9 Depression Total Score: 5 01/05/20 23 11:10 AM EDT documented as of this encounter Care Teams Drying Can Worker Relationship Specialty Start Date End Date Megan Pathak ANP [address] [place] [address] PCP - General Family Medicine 02/28/20 [place] 03/23/24 documented as of this encounter
--- OUTSIDE RECORDS SUMMARY | 2025-02-19 17:31 | XMS_ITS | Encounter Summary ---
Author Organization [employer] Address [address] [facility] [address] [address] [place] [address] Care Team Providers Care Archeology Professor Name Role Phone Megan Pathak Primary Care Provider [phone] Reason for Visit * Reason Comments Med Refill Encounter Details Date Type Department Care Team ([facility] st Contact Info) Description 02/04/2023 Refill [facility] CH[facility] MED & PEDS [address] [place] [phone] Megan Pathak ANP [address] [place], [place] [phone] Chronic back pain greater than 3 months [...] Description 02/20/2025 2:30 PM EDT Office Visit [facility] OPTOMETRY [address] [place] [address] Valentina Brown, OD [address] [place] [address] 03/09/2025 9:30 AM EDT Clinical Support [facility] MEDICINE [address] [place] [address] Giovana Sal, GLORY [address] [place] [address] documented as of this encounter Visit Diagnoses Diagnosis Chronic back pain greater than 3 months duration documented in this encounter Additional Health Concerns Assessment Noted Time PHQ-9 Depression Total Score: 5 01/05/20 23 11:10 AM EDT documented as of this encounter Care Teams Archeology Professor Relationship Specialty Start Date End Date Megan Pathak ANP [address] [place] [address] PCP - General Family Medicine 02/28/20 [email or web address] 03/23/24 documented as of this encounter
--- OUTSIDE RECORDS SUMMARY | 2025-02-19 17:31 | XMS_ITS | Clinical Summary ---
Author Organization [facility] Address [address] [place] [address] Care Team Providers Care Genetics Nurse Name Role Phone Megan Pathak NP Primary Care Provider Unavailabl e Allergies No known active allergies Medications Medication Sig Dispensed Refills Start Date End Date Status Elastic Bandages & Supports (CARPAL TUNNEL WRIST STABILIZER) MISCIndications:Carpa l tunnel syndrome,Numbness and tingling 2 Each by Does not apply route daily. 2 Each 0 02/02/2014 Active FREESTYLE LANCETS MiscIndications:DM (diabetes mellitus) type II controlled with renal manifestation (HCC) TEST twice a day 100 Each 5 12/16/2015 Active loratadine (CLARITIN) 10 MG tablet Take 1 Tab by mouth daily. 30 Tab 2 04/06/2017 Active FREESTYLE LITE strip Test blood sugar 2 times daily 100 Each 11 04/19/2017 Active ammonium lactate (AMLACTIN) 12 % creamIndications:Diab etes mellitus type 2 with neurological manifestations (HCC),Pain in both feet,Onychomycosis,Xe rosis of skin Apply to dry skin on feet 2-3 times per week 385 g 3 07/05/2017 Active ciclopirox (LOPROX) 0.77 % SuspensionIndications :Diabetes mellitus type 2 with neurological manifestations (HCC),Pain in both feet,Onychomycosis,Xe rosis of skin Apply 2 drops to each toenail once daily 60 mL 3 07/05/2017 Active amitriptyline (ELAVIL) 100 MG tablet take 1 tablet by mouth at bedtime if needed for sleep 30 Tab 5 09/10/2017 Active gabapentin (NEURONTIN) 100 MG capsule take 1 capsule by mouth once daily at bedtime 30 Cap 3 10/20/2017 Active atorvastatin (LIPITOR) 80 MG tablet take 1 tablet by mouth once daily 30 Tab 5 12/06/2017 Active lisinopril (PRINIVIL,ZESTRIL) 20 MG tablet take 1 tablet by mouth once daily 30 Tab 5 12/06/2017 Active buPROPion (WELLBUTRIN SR) 150 MG 12 hr tablet Take 1 Tab by mouth 2 times daily. 60 Tab 1 12/06/2017 Active glipiZIDE (GLIPIZIDE XL) 10 MG 24 hr tablet Take 2 Tabs by mouth daily. 60 Tab 2 01/14/2018 Active Insulin Glargine (LANTUS SOLOSTAR) 100 UNIT/ML Solution Pen-injector Inject 10 Units into the skin at bedtime. 5 Device 0 01/17/2018 Active Insulin Pen Needle (BD PEN NEEDLE LAKEISHA U/F) 32G X 4 MM Misc Inject 1 Device into the skin at bedtime. 50 Each 1 01/20/2018 Active fenofibrate micronized (LOFIBRA) 134 MG capsule take 1 capsule by mouth once daily BEFORE BREAKFAST 30 Cap 4 02/23/2018 Active hydrocodone-acetamino phen (NORCO) 5-325 MG per tablet Take 1 tablet by mouth See Admin Instructions. 1 tab bid for 10 days then 1 daily for 10 days then discontinue 30 tablet 0 04/25/2018 Active Active Problems Patient Care Coordination No te Formatting of this note is d ifferent from the original. Checking Your Blood Sugars Please check your blood sugars every day. Please check your sugars at the following times of day: before breakfast, after lunch and after dinner Your Blood Sugar Goals Pre Meal: 90-130 2 hours after meals: 110-160 Bedtime: 110-150 Use the Results ?? Bring your glucometer to every appointment ?? Write your fingerstick blood sugars down on a log sheet or record book. Bring them to your appointment ?? Look for patterns in the numbers. The results help you and your provider make decisions about your diabetes treatment plan. Your Results and your Goals Your Result / Date of Completion Your Goal / How Often to Assess Component Value Date HGBA1C 6.6 07/01/2015 Less than 7% --- 2-4 times per year BP Readings from Last 1 Encounters: 07/11/15 120/60 Less than 140/90 --- once per year Component Value Date MALBCR 3.2 07/01/2015 Less than 30 --- once per year Component Value Date LDL 48 07/01/2015 Less than 100 --- once per year Wt Readings from Last 1 Encounters: 07/11/15 192 lb (87.091 kg) Your goal weight by next visit: 185 --- reassess 2-4 times a year Health Maintenance Due Topic Date Due ? ? Diabetes: Annual Eye Exam 01/14/2013 ? ? Influenza (##1 of 1) 06/11/2015 ? ? Diabetes: Annual Care Plan 07/10/2015 Your Action Plan Your diabetes is well controlled and no changes are required to your current plan. Check blood glucose as directed and write down all results. Continue to work on weight loss with a goal of losing 2-4 pounds per month Increase physical activity Contact me if you experience any barriers to care such as inability to purchase your medication, difficulty getting to your appointments or difficulty understanding your care plan When to Call your Healthcare Provider If your blood sugar falls below 70 and you do not know why or you become unconscious If you are sick and unable to take liquids because or nausea or vomiting If you have a fever over 101 If your blood sugar is 300 or higher on greater than 3 separate occasions during the same week If you are just unsure what to do Educational Resources [place] [employer] (www.diabetes.org) Centers for Disease Control and Prevention (www.cdc.gov/diabetes) This care plan was created in collaboration with Annette Kim on 07/11/2015 Problem Noted Date Sensorineural hearing loss (SNHL) of bot h ears 10/21/2017 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 03/25/2016 Onychomycosis 03/25/2016 Anemia 03/24/2016 CKD (chronic kidney disease) stage 3, GF R 30-59 ml/min 07/11/2015 PLMD (periodic limb movement disorder) 0 04/18/2014 Hyperlipidemia LDL goal < 100 06/20/2013 Overview: IMO update Morbid obesity 06/20/2013 Esotropia 03/13/2011 Unspecified essential hypertension 12/17 DM (diabetes mellitus), type 2 with jomar l complications 01/10/2008 Depression 12/09/2007 Overview: Hospitalized- suicidal ideation 09/14 History of panic attacks 06/2015-[facility] [place] [facility], therapist comes to home Anxiety 12/09/2007 LUMBAGO 09/22/2005 Overview: spina bfida occulta OBESITY, UNSPECIFIED 09/22/2005 Resolved Problems Problem Noted Date Resolved Date Microalbuminuria 03/13/2011 02/03/2012 Seizure disorder 03/13/2011 02/03/2012 Overview: Per note[address] Daigle Immunizations Name Administration Dates Next Due Hepatitis B > 19yrs 10/26/2007,07/27/20072006 Influenza (> 6 Months) 08/10/2016,2014,07/31/2013,06/11,07/10/2011,06/29/2008 Pneumoccoccal(Adult) Polysac charide PPSV23 12/09/2007 TD (STATE SUPPLIED FOR ADULT S AND CHILDREN) 11/16/2017 Tdap 12/09/2007 Family History Medical History Relation Name Comments No Known Problems Brother No Known Problems Daughter Depression/Anxiety Father Diabetes Father Hypercholesterolemia Father Hypertension Father No Known Problems Maternal Grandfather Arthritis Maternal Grandmother Depression/Anxiety Mother No Known Problems Other No Known Problems Paternal Grandfather No Known Problems Paternal Grandmother No Known Problems Sister 1 No Known Problems Sister 2 Blindness Negative Hx CA Breast Negative Hx CA Colon Negative Hx CA Ovarian Negative Hx Cataract Negative Hx Glaucoma Negative Hx Macular Degeneration Negative Hx Strabismus Negative Hx Relation Name Status Comments Brother Alive Daughter Father Alive hyperlipidemia DM Maternal Grandfather Maternal Grandmother Mother Alive Other Paternal Grandfather Paternal Grandmother Sister 1 Alive BORDERLINE DM Sister 2 Alive Social History Tobacco Use Types Packs/Day Years Used Date Smoking Tobacco: Former Cigarettes 0.3 18 Q uit: 10/11/1999 Smokeless Tobacco: Never Alcohol Use Standard Drinks/Week Comments No 0 (1 standard drink = 0.6 oz pur e alcohol) Sex Assigned at Date Recorded Not on file Last Filed Vital Signs Vital Sign Reading Time Taken Comments Blood Pressure 134/84 01/14/2018 8:22 AM EDT Pulse 72 01/14/2018 8:22 AM EDT Temperature 36.5 ??C (97.7 ??F) 11/16/2017 9:08 AM ES T Respiratory Rate 14 01/14/2018 8:22 AM EDT Oxygen Saturation 97% 10/17/2016 11:57 AM EST Inhaled Oxygen Concentration - - Weight 86.8 kg (191 lb 6.4 oz) 01/14/2018 8:22 A M EDT Height 139.7 cm (4' 7 ) 01/14/2018 8:22 AM EDT Body Mass Index 44.49 01/14/2018 8:22 AM EDT Plan of Treatment Health Maintenance Due Date Last Done Comments Covid-19 Vaccine (#1) 01/03/1971 DIABETES: ANNUAL URINE PROTE IN TEST (MICROALBUMIN) 12/30/2017 12/30/2016, 07/01/2015, 11/09/2014, Additional history exists DIABETES: BLOOD SUGAR CONTRO L TEST (HGBA1C) 04/15/2018 01/14/2018, 10/21/2017, 04/06/2017, Additional history exists DIABETES: ANNUAL FOOT EXAM 10/20/201810/20, 07/05/2017, 07/05/2017 (Completed), Additional history exists DIABETES: ANNUAL EYE EXAM 11/08/20182017, 09/14/2016 (External Completion), 01/15/2012, Additional history exists MAMMOGRAM 12/01/2018 12/01/2017, 11/11, 02/13/2015, Additional history exists DIABETES/HEART DISEASE: KAYLAH AL CHOLESTEROL (LDL) 01/14/2019 01/14/2018, 10/21/2017, 04/06/2017, Additional history exists BASELINE HEALTH EXAM 40-64 04/06/201904/06, 04/06/2017, 04/24/2014, Additional history exists COLON CANCER SCREENING 2022 SHINGLES VACCINE (1 of 2) 2022 BMI CHECK/ADVISE 10/11/2024 04/06/2017, 10/2014, 11/09/2014, Additional history exists INFLUENZA (Season Ended) 2025 016, 05/25/2016, 07/11/2015, Additional history exists DTAP/TDAP/TD (3 - Td or Tdap) 11/16/2027 11/16/2017, 12/09/2007 PNEUMOCOCCAL VACCINE FOR HIG H RISK PATIENTS (#2) 2037 12/09/2007 Care Teams Genetics Nurse Relationship Specialty Start Date End Date Megan Pathak NP PCP - General Nurse Practioner Adult Health 02/25/24
--- OUTSIDE RECORDS SUMMARY | 2025-02-19 17:31 | XMS_ITS | Encounter Summary ---
Author Organization [facility] Address [address] [place] [address] Care Team Providers Care Projector Booth Operator Name Role Phone Delano Reece MD Primary Care Provider Allyssa Thurston, Je Primary Care Provider Megan Aguilar NP Primary Care Provider Tremaine jacobo Encounter Details Date Type Department Care Team Description 12/07/2017 Pt. Non Urgent Medic al Question Adult Medicine [address] [address] An Ibarra APRN Social History Tobacco Use Types Packs/Day Years Used Date Smoking Tobacco: Former Cigarettes 0.3 18 Q uit: 10/11/1999 Smokeless Tobacco: Never Alcohol Use Standard Drinks/Week Comments No 0 (1 standard drink = 0.6 oz pur e alcohol) Sex Assigned at Date Recorded Not on file documented as of this encounter Progress Notes * Millicent Avalos M.A. - 12/07/2017 9:59 AM ESTFrom: Annette Kim To: An Ibarra APRN Sent: 12/07/2017 9:00 AM EST Subject: Communication Hi , I am writing to let you know I currently do not have a phone. If you need to reach me, please call [phone], my sister would be able to contact me. Next contact number is my mom at [phone]. Thank you documented in this encounter Plan of Treatment Not on file documented as of this encounter Visit Diagnoses Not on filedocumented in this encounter Care Teams Projector Booth Operator Relationship Specialty Start Date End Date Delano Reece MD PCP - General Internal Medicine 01/22/13 04/20/18 [facility], Pcp PCP - General Internal Medicine 04/21/18 02/24/24 Megan Pathak NP PCP - General Nurse Practioner Adult Health 02/25/24 documented as of this encounter
--- OUTSIDE RECORDS SUMMARY | 2025-02-19 17:31 | XMS_ITS | Encounter Summary ---
Author Organization [facility] Address [address] [place] [address] Care Team Providers Care Bricklayer Apprentice Name Role Phone Delano Reece MD Primary Care Provider Allyssa Thurston, Pcp Primary Care Provider Megan Aguilar NP Primary Care Provider Tremaine jacobo Reason for Visit * Reason Comments E-prescribe Rx Request Encounter Details Date Type Department Care Team Description 07/10/2017 Refill Adult Medicine [address] [address] An Ibarra APRN E-prescribe Rx Request Social History Tobacco Use Types Packs/Day Years Used Date Smoking Tobacco: Former Cigarettes 0.3 18 Q uit: 10/11/1999 Smokeless Tobacco: Never Alcohol Use Standard Drinks/Week Comments No 0 (1 standard drink = 0.6 oz pur e alcohol) Sex Assigned at Date Recorded Not on file documented as of this encounter Miscellaneous Notes * Telephone Encounter - Brandie Ibarra L.P.N. - 07/12/2017 9:30 AM EDT Lab Results Component Value Date HGBA1C 10.4 04/06/2017 MALBUR 1190.2 12/30/2016 MALBCR 2088.0 12/30/2016 CHOL 218 04/06/2017 LDL 76 04/06/2017 HDL 48 04/06/2017 TRIG 471 04/06/2017 GLU 286 12/30/2016 CREAT 0.9 12/30/2016 * Telephone Encounter - Ivy Young - 07/12/2017 9:10 AM EDT Patient would like script to be: E-PRESCRIBED/FAXED TO PHARMACY WHEN WAS THE PATIENT'S LAST APPOINTMENT IN ADULT MEDICINE? 04/27/17 WHEN WAS THE LAST TIME THE PATIENT SAW THEIR PCP? Same as above Does patient have an upcoming appointment? Yes 07/23/17 (THE MEDICATION REQUESTED IS ON THE MED LIST ABOVE) All of the medications requested were on the CURRENT MEDS list Did you check the Pharmacy information above?: YES Patient wants: 30 -day supply Is this a mail order prescription request ? NO Patients current insurance carrier is: [facility] / Plan: FFS HMO $0 [employer] [id number] / Product Type: MEDICAID RISK documented in this encounter Plan of Treatment Not on file documented as of this encounter Visit Diagnoses Not on filedocumented in this encounter Care Teams Bricklayer Apprentice Relationship Specialty Start Date End Date Delano Reece MD PCP - General Internal Medicine 01/22/13 [facility] - [facility] 04/21/18 02/24/24 Megan Pathak NP PCP - General Nurse Practioner [facility] 02/25/24 documented as of this encounter
--- OUTSIDE RECORDS SUMMARY | 2025-02-19 17:31 | XMS_ITS | Encounter Summary ---
Author Organization [employer] Address [address] [place] [address] Care Team Providers Care Bone Plant Supervisor Name Role Phone Megan Pathak Primary Care Provider Reason for Visit * Reason Comments Med Refill Encounter Details Date Type Department Care Team ([facility] st Contact Info) Description 12/06/[address] [facility] MEDICINE [address] [place], [place] [phone] Megan Pathak ANP [address] [place], [place] [phone] Diabetes mellitus type 2 in obese ([facility]) Social History Tobacco Use Types Packs/Day Years [...] Description 02/20/2025 2:30 PM EDT Office Visit [facility] OPTOMETRY [address] [place], [place] [phone] Valentina Brown, OD [address] [place] [address] 03/09/2025 9:30 AM EDT Clinical Support [facility] MEDICINE [address] [place] [address] Giovana Sal, RN [address] [place] [address] documented as of this encounter Visit Diagnoses Diagnosis Diabetes mellitus type 2 in obese Type II or unspecified type diabetes mellitus without mention of complication, not stated as uncontrolled documented in this encounter Additional Health Concerns Assessment Noted Time PHQ-9 Depression Total Score: 7 11/04/19 24 2:44 PM EST documented as of this encounter Care Teams Bone Plant Supervisor Relationship Specialty Start Date End Date Megan Pathka ANP [address] [place] [address] PCP - General Family Medicine 02/28/20 [employer] 03/23/24 documented as of this encounter
--- OUTSIDE RECORDS SUMMARY | 2025-02-19 17:31 | XMS_ITS | Encounter Summary ---
Author Organization [facility] Address [address] [place] [address] Care Team Providers Care Dependency Counselor Name Role Phone Delano Reece MD Primary Care Provider Allyssa Thurston, Pcp Primary Care Provider Megan Aguilar NP Primary Care Provider Tremaine jacobo Encounter Details Date Type Department Care Team Description 06/11/2016 Pt. Non Urgent Medic al Question Adult Medicine [address] [address] Delano Reece MD Social History Tobacco Use Types Packs/Day Years Used Date Smoking Tobacco: Former Cigarettes 0.3 18 Q uit: 10/11/1999 Smokeless Tobacco: Never Alcohol Use Standard Drinks/Week Comments No 0 (1 standard drink = 0.6 oz pur e alcohol) Sex Assigned at Date Recorded Not on file documented as of this encounter Progress Notes * Carey Villasenor M.A. - 06/11/2016 10:38 AM EDTFrom: Annette Kim To: Delano Reece MD Sent: 06/11/2016 10:18 AM EDT Subject: Cat scan Hi, I have an appointment with An on October 01, that is a long way for my appointment, I would like to have a scat can of my head if that's possible, thank you. documented in this encounter Plan of Treatment Not on file documented as of this encounter Visit Diagnoses Not on filedocumented in this encounter Care Teams Dependency Counselor Relationship Specialty Start Date End Date Delano Reece MD PCP - General Internal Medicine 01/22/13 04/20/18 [facility], Pcp PCP - General Internal Medicine 04/21/18 02/24/24 Megan Pathak NP PCP - General Nurse Practioner Adult Health 02/25/24 documented as of this encounter
--- OUTSIDE RECORDS SUMMARY | 2025-02-19 17:31 | XMS_ITS | Encounter Summary ---
Author Organization [facility] Address [address] [place] [address] Care Team Providers Care Shopping Centre Manager Name Role Phone Robson Fabian MD Primary Care Provider [phone] Delano Reece MD Primary Care Provider Templeanupam corona [facility], Pcp Primary Care Provider Megan Aguilar NP Primary Care Provider Tremaine jacobo Encounter Details Date Type Department Care Team Description 11/28/2012 Refill Adult Medicine [address] [address] Robson Fabian MD [address] [place] [id number] Social History Tobacco Use Types Packs/Day Years Used Date Smoking Tobacco: Former Cigarettes Q uit: 10/11/1999 Smokeless Tobacco: Never Comments:1 year Alcohol Use Standard Drinks/Week Comments No 0 (1 standard drink = 0.6 oz pur e alcohol) Sex Assigned at Date Recorded Not on file documented as of this encounter Miscellaneous Notes * Telephone Encounter - Brandie JonesPAdrianaNAdriana - 11/29/2012 9:56 AM EST vicodin is early due My chart message sent * Telephone Encounter - Brandie JonesPSelma - 11/29/2012 9:56 AM ESTFrom: ANNETTE LYON To: Robson Fabian MD Sent: WedNov 28, 2012 8:40 PM Subject: Medication Renewal Request Original authorizing provider: Robson Fabian MD Annette Lyon would like a refill of the following medications: hydrocodone-acetaminophen (VICODIN) 5-500 MG per tablet [Robson aFbian MD] Preferred pharmacy: [address] Comment: Medication renewals requested in this message routed to other providers: naproxen (NAPROSYN) 500 MG tablet [An Ibarra APRN] documented in this encounter Plan of Treatment Not on file documented as of this encounter Visit Diagnoses Not on filedocumented in this encounter Care Teams Shopping Centre Manager Relationship Specialty Start Date End Date Robson Fabian MD [address] [place] [address] PCP - General 05/07/03 01/21/13 Delano Reece MD [address] [place] [address] PCP - General Internal Medicine 01/22/13 04/20/18 [facility], Pcp [address] [place] [address] PCP - General Internal Medicine 04/21/18 02/24/24 Megan Pathak NP [address] [place] [address] PCP - General Nurse Practioner Adult Health 02/25/24 documented as of this encounter
--- OUTSIDE RECORDS SUMMARY | 2025-02-19 17:31 | XMS_ITS | Encounter Summary ---
Author Organization [employer] Address [address] [facility] 7t [place] [address] Care Team Providers Care Water Quality Technician Name Role Phone Megan Pathak Primary Care Provider [phone] Reason for Visit * Reason Onset Date Comments PT1 10/20/2023 Encounter Details Date Type Department Care Team ([facility] Contact Info) Description 10/20/2023 Telephone [facility] MEDICINE [address] [place], [place] [phone] Megan Pathak ANP [address] [place] [address] PT1 Social History Tobacco Use Types Packs/Day [...] 9:00 am Visits: 4 a month Address: [address] [place] [address] Facility: Wheel Chair: no Railway Switch Operator [facility]: [facility]. [address] [place] [address] ([facility]) and [address] [facility] ([facility]). If any questions you can contact Ofelia at [phone]. documented in this encounter Plan of Treatment Upcoming Encounters Date Type Department Care Team (Late st Contact Info) Description 02/20/2025 2:30 PM EDT Office Visit [facility] OPTOMETRY [address] [place] [address] Valentina Brown, RUDDY [address] [place] [address] 03/09/2025 9:30 AM EDT Clinical Support [facility] MEDICINE [address] [place] [address] Giovana Sal, RN [address] [place] [address] documented as of this encounter Visit Diagnoses Not on filedocumented in this encounter Additional Health Concerns Assessment Noted Time PHQ-9 Depression Total Score: 1 04/12/20 23 11:19 AM EDT documented as of this encounter Care Teams Water Quality Technician Relationship Specialty Start Date End Date Megan Pathak ANP [address] [place] [address] PCP - General Family Medicine 02/28/20 [facility] 03/23/24 documented as of this encounter
--- OUTSIDE RECORDS SUMMARY | 2025-02-19 17:31 | XMS_ITS | Encounter Summary ---
Author Organization [facility] Address [address] [place] [address] Care Team Providers Care Director Of Home Health Services Name Role Phone Delano Reece MD Primary Care Provider Allyssa Thurston, Pcp Primary Care Provider Megan Aguilar NP Primary Care Provider Tremaine jacobo Encounter Details Date Type Department Care Team Description 03/17/2017 PNO Controlled Substance Contract Medical Records [address] [place] [address] Abstract, Provider Social History Tobacco Use Types [...] on filedocumented in this encounter Care Teams Director Of Home Health Services Relationship Specialty Start Date End Date Delano Reece MD PCP - General Internal Medicine 01/22/13 04/20/18 Je Thurston PCP - General Internal Medicine 04/21/18 02/24/24 Megan Pathak NP PCP - General Nurse Practioner Adult Health 02/25/24 documented as of this encounter
--- OUTSIDE RECORDS SUMMARY | 2025-02-19 17:31 | XMS_ITS | Encounter Summary ---
Author Organization [facility] Address [address] [place] [address] Care Team Providers Care Hospitality Services Manager Name Role Phone Delano Reece MD Primary Care Provider Allyssa Thurston, Pcp Primary Care Provider Megan Aguilar NP Primary Care Provider Tremaine jacobo Encounter Details Date Type Department Care Team Description 10/22/2014 Telephone Adult [address] [phone] Delano Reece MD Social History Tobacco Use Types Packs/Day Years Used Date Smoking Tobacco: Former Cigarettes Q uit: 10/11/1999 Smokeless Tobacco: Never Comments:1 year Alcohol Use Standard Drinks/Week Comments No 0 (1 standard drink = 0.6 oz pur e alcohol) Sex Assigned at Date Recorded Not on file documented as of this encounter Miscellaneous Notes * Telephone Encounter - Delano Reece - 10/22/2014 3:19 PM EST Called at number below. [phone] and left message to call back. * Telephone Encounter - Brandie JonesPAdrianaNAdriana - 10/22/2014 2:06 PM EST Pt calling back [phone] * Telephone Encounter - Brandie JonesPAdrianaNAdriana - 10/22/2014 2:05 PM EST Telephone Information: Pt csc .. Message left for patient to return my call. * Telephone Encounter - Delano Reece - 10/22/2014 12:37 PM EST Reviewed recent SALES PROMOTION OFFICER. Shows pt has received oxycodone from [employer]. Will need to discuss about contract and to not let this happen as this will be violation in the future. documented in this encounter Plan of Treatment Not on file documented as of this encounter Visit Diagnoses Not on filedocumented in this encounter Care Teams Hospitality Services Manager Relationship Specialty Start Date End Date Delano Reece MD PCP - General Internal Medicine 01/22/13 04/20/18 [facility], Pcp PCP - General Internal Medicine 04/21/18 02/24/24 Megan Pathak NP PCP - General Nurse Practioner Adult Health 02/25/24 documented as of this encounter
--- OUTSIDE RECORDS SUMMARY | 2025-02-19 17:31 | XMS_ITS | Encounter Summary ---
Author Organization [facility] Address [address] [place] [address] Care Team Providers Care Fluorescent Lighting Model Maker Name Role Phone Robson Fabian MD Primary Care Provider [phone] Delano Reece MD Primary Care Provider Allyssa Thurston, Pcp Primary Care Provider Megan Aguilar NP Primary Care Provider Tremaine jacobo Encounter Details Date Type Department Care Team Description 09/21/2012 Wrister Report Medical Records [address] [place], [place] [id number] Rehab., [facility] Social History Tobacco Use Types Packs/Day Years [...] on filedocumented in this encounter Care Teams Fluorescent Lighting Model Maker Relationship Specialty Start Date End Date Robson Fabian MD [address] [place], [place] [phone] PCP - General 05/07/03 01/21/13 Delano Reece MD [address] [place] [address] PCP - General Internal Medicine 01/22/13 04/20/18 Bertrand, Pcp [address] [place] [address] PCP - General Internal Medicine 04/21/18 02/24/24 Megan Pathak NP [address] [place] [address] PCP - General Nurse Practioner Adult Health 02/25/24 documented as of this encounter
--- OUTSIDE RECORDS SUMMARY | 2025-02-19 17:31 | XMS_ITS | Encounter Summary ---
Author Organization [facility] Address [address] [place] [address] Care Team Providers Care Vice President Of Communications Name Role Phone Community, Pcp Primary Care Provider Megan Aguilar NP Primary Care Provider Tremaine ajcobo Encounter Details Date Type Department Care Team Description 04/10/2019 Release of Information Medical Records [address] [place] [id number] Abstract, Provider Social History Tobacco Use Types [...] on filedocumented in this encounter Care Teams Vice President Of Communications Relationship Specialty Start Date End Date Community, Pcp PCP - General Internal Medicine 04/21/18 02/24/24 Megan Pathak NP PCP - General Nurse Practioner Adult Health 02/25/24 documented as of this encounter
--- OUTSIDE RECORDS SUMMARY | 2025-02-19 17:31 | XMS_ITS | Encounter Summary ---
Author Organization [facility] Address [address] [place] [address] Care Team Providers Care Smoke Chaser Name Role Phone Delano Reece MD Primary Care Provider Allyssa Thurston, Pcp Primary Care Provider Megan Aguilar NP Primary Care Provider Tremaine jacobo Encounter Details Date Type Department Care Team Description 04/06/2014 Orders Only Adult Medicine [address] [address] Delano Reece MD Social History Tobacco Use [...] on filedocumented in this encounter Care Teams Smoke Chaser Relationship Specialty Start Date End Date Delano Reece MD PCP - General Internal Medicine 01/22/13 04/20/18 Bertrand, Pcp PCP - General Internal Medicine 04/21/18 02/24/24 Megan Pathak NP PCP - General Nurse Practioner Adult Health 02/25/24 documented as of this encounter
--- OUTSIDE RECORDS SUMMARY | 2025-02-19 17:32 | XMS_ITS | Encounter Summary ---
Author Organization [facility] Address [address] [facility] 7t [place] [address] Care Team Providers Care Rabbit Breeder Name Role Phone Megan Pathak Primary Care Provider [phone] Reason for Referral * Imaging (Routine) - Closed Specialty Diagnoses / Procedures Referred By Melissa roche Referred To Contact Radiology Diagnoses Screening mammogram for breast cancer Procedures BI Mammogram Screening Bilateral Megan Pathak ANP [address] [place] [address] Phone: tel: fax: [address] Phone: tel: fax: Referral ID Status Reason Start Date Expiration Date Visits Re quested Visits Authorized [id number] Closed 02/19/2025 02/19/2026 1 1 Reason for Visit * Reason Comments Follow-up Diabetes Encounter Details Date Type Department Care Team (Latest Contact Info) Description 02/19/2025 2:00 PM EDT Office Visit [facility] [address] [place], [place] [phone] Megan Pathak ANP [address] [place], [place] [phone] Type 2 diabetes mellitus with hyperlipidemia (CMS/HCC) (CMS/HCC) (Primary Dx); Screening mammogram for breast cancer; prison (current) use of opiate analgesic; Food insecurity; Anxiety; Major depressive disorder, recurrent, severe with psychotic [...] Answer Date Recorded Patient Health Questionnaire-9 Score 17 02/19/2025 Patient Health Questionnaire-9 Score 17 02/19/2025 Last PHQ-9: Questionnaire Data Not on file 0 02/19/2025 Housing Stability Answer Date Recorded What is your housing situation today? I have housing today, but I am worried about losing housing in the future 02/13/[address] you li ve. Do you have problems with any of the following? None of the above 02/13/2025 Food Insecurity Answer Date Recorded Within the past 12 months, y ou worried that your food would run out before you got money to buy more: Sometimes True 2024 Within the past 12 months,th e food you bought just didn't last and you didn't have enough money to get more: Sometimes True 02/13/2025 Transportation Answer Date Recorded In the past 12 months, has l ack of transportation kept you from medical appts, meetings, work or from getting things needed for daily living? Yes, it has kept me from medical appointments or getting medications. 02/13/2025 Utilities Answer Date Recorded In the past 12 months, has t he electric, gas, oil or water company threatened to shut off services in your home? No 02/13/2025 Depression Answer Date Recorded Patient Health Questionnaire-2 Score 5 02/19/2025 Internet Access Answer Date Recorded Internet Access Q1 Yes 02/13/2025 Internet Access Q2 Not on file 02/13/2025 Comments Unknown Sex and Gender Information Value Date Recorded Sex Assigned at Female 08/10/2022 10:27 AM EDT Legal Sex Female 10:27 AM EDT Gender Identity Female 08/10/2022 10:27 AM EDT Sexual Orientation Straight 08/10/2022 10 :27 AM EDT documented as of this encounter Last Filed Vital Signs Vital Sign Reading Time Taken Comments Blood Pressure 129/74 02/19/2025 2:16 PM EDT Pulse 71 02/19/2025 2:16 PM EDT Temperature - - Respiratory Rate 16 02/19/2025 2:16 PM EDT Oxygen Saturation - - Inhaled Oxygen Concentration - - Weight 77.1 kg (170 lb) 02/19/2025 2:16 PM EDT Height 144.8 cm (4' 9 ) 02/19/2025 2:16 PM EDT Body Mass Index 36.79 02/19/2025 2:16 PM EDT documented in this encounter Progress Notes * ERLINDA Banks - 02/19/2025 2:00 PM EDT Subjective Patient ID: Annette Kim is a 54 y.o. female who presents for Follow-up and Diabetes. HPI Lab Results Component Value Date HGBA1C 6.3 (A) 02/19/2025 HGBA1C 6.1 (A) 09/18/2024 HGBA1C 11.5 (A) 03/13/2024 Has not slept in 2-3d, she thinks her amitriptyline dose is too low She thinks maybe she is on a wait list for psychiatry but she's not sure. She has new hearing aids coming soon. Has an appt w/ Dr. Brown tomorrow. She does have sometimes low BG at bedtime 59, 60. Not eating consistently. Has significant food insecurity. Her sister who was helping her with shanika et al, is sadly in the hospital with cancer. She will be getting LOG GRADER services w/ lu. She has VNA. She has severe depression and poor memoryand need assistance with iADLs, some ADLs. Former smoker. Plan will be to refill hydrocodone and increase amitriptyline to 175mg at bedtime after literature review; instead I will consider increasing seroquel to 50mg, have LVM for pt and will message via [employer]. Review of Systems Constitutional: Negative for chills and fever. HENT: Negative for sore throat. Respiratory: Negative for cough and shortness of breath. Cardiovascular: Negative for chest pain. Gastrointestinal: Negative for constipation and diarrhea. Endocrine: Negative for polydipsia, polyphagia and polyuria. Genitourinary: Negative for dysuria. Musculoskeletal: Negative for myalgias. Neurological: Positive for weakness. Psychiatric/Behavioral: Positive for decreased concentration, dysphoric mood and sleep disturbance.Negative for suicidal ideas. The patient is nervous/anxious. Objective BP 129/74 (BP Location: Left arm, Patient Position: Sitting, BP Cuff Size: Adult) Pulse71 Resp 16 Ht 4' 9 (1.448 m) Wt 170 lb (77.1 kg) BMI 36.79 kg/m?? Physical Exam Vitals reviewed. Constitutional: General: She is not in acute distress. Appearance: Normal appearance. She is obese. She is not ill-appearing. HENT: Head: Normocephalic and atraumatic. Eyes: Extraocular Movements: Extraocular movements intact. Cardiovascular: Rate and Rhythm: Normal rate and regular rhythm. Pulmonary: Effort: Pulmonary effort is normal. No accessory muscle usage or respiratory distress. Neurological: Mental Status: She is alert and oriented to person, place, and time. Psychiatric: Mood and Affect: Mood normal. Behavior: Behavior normal. Comments: Anxious, fidgeting Assessment/Plan Diagnoses and all orders for this visit: Type 2 diabetes mellitus with hyperlipidemia ([facility]) ([facility]) Lab Results Component Value Date HGBA1C 6.3 (A) 02/19/2025 A1c is stable, no change to meds On statin, Zetia, ARB, not on ASA, yes on SGLT2i Recommend patient increase protein intake. She has significant food insecurity and so this is difficult for her. Asked her to please try to be consistent with her diet especially considering she is on insulin. She has stopped using mealtime insulin which seems appropriate. - POCT Glucose - POCT HGB A1C - Albumin, Random Urine W/Creatinine; Future Screening mammogram for breast cancer - BI Mammogram Screening Bilateral; Future prison (current) use of opiate analgesic - POCT MICHELLE-14 Urine Drug Screen Food insecurity [facility] referral placed Anxiety Severe. Depression and anxiety interfere with patient's ability to care for self and coordinate hercare. Her sister was helping her with this but unfortunately her sister has been diagnosed with cancer and has been recently hospitalized. Annette will need significant help in her stead including PCAand possibly VNA services. Major depressive disorder, recurrent, severe with psychotic features ([facility]) clinician Renan to room to see patient today. He will place referral for psychiatry. See note same DOS. Will consider increase to Seroquel 25 mg tablet to 50 mg tablet once daily at bedtime. I came to this conclusion after the appointment and messaged and called patient and will wait for her answer. I would not like to increase amitriptyline beyond current dose 150 mg nightly. Encourage patient to increase exercise and follow-up with therapy and psychiatry as planned. Future Appointments Date Time Provider Department Center 02/20/2025 2:30 PM Valentina Brown OD [facility] 03/09/2025 9:30 AM Giovana Sal RN [facility] documented in this encounter Miscellaneous Notes * Result Encounter Note - ERLINDA Banks - 02/19/2025 2:00 PM EDT Hi - sending as FYI - pt here for visit so did urine tox screen documented in this encounter Plan of Treatment Upcoming Encounters Date Type Department Care Team (Late st Contact Info) Description 02/20/2025 2:30 PM EDT Office Visit [facility] [address] [place] [address] Valentina Brown, OD [address] [place] [address] 03/09/2025 9:30 AM EDT Clinical Support [facility] [address] [place] [address] Giovana Sal, GLORY [address] [place] [address] Scheduled Orders Name Type Priority Associated Diagnoses Orde r Schedule Albumin, Random Urine W/Creatinine Lab Routine Type 2 diabetes mellitus with hyperlipidemia (CMS/HCC) (CMS/HCC) Expected: 02/19/2025 (Approximate), Expires: 02/19/2026 BI Mammogram Screening Bilateral Imaging Routine Screening mammogram for breast cancer Expected: 02/19/2025, Expires: 02/20/2026 documented as of this encounter Procedures Procedure Name Priority Date/Time Associated Diagnosis Comments POCT MICHELLE-14 URINE DRUG SCREEN Routine 02/19/2025 3:28 PM EDT manager long term care (current) use of opiate analgesic POCT GLYCATED HEMOGLOBIN, TOTAL Routine 02/19/2025 2:24 PM EDT Type 2 diabetes mellitus with hyperlipidemia ([facility]CC) ([facility]) POCT GLUCOSE Routine 02/19/2025 2:22 PM EDT Type 2 diabetes mellitus with hyperlipidemia ([facility]) ([facility]) documented in this encounter Results * (ABNORMAL) POCT MICHELLE-14 Urine Drug Screen (02/19/2025 3:28 PM EDT) Pathologist [facility] THC Positive Cocaine Screen, Urine Negative Opiate Screen, Urine Negative Methamphetamine Screen Urine Negative Amphetamine Screen, Urine Negative Benzodiazepines Screen, Urine Negative Barbiturate Screen, Urine Negative Methadone Screen, Urine Negative Buprenophine Screen, Urine Negative TCA, Urine Positive MDMA Urine Negative ng/mL Oxycodone Screen, Urine Negative Phencyclidine (PCP), Urine Negative Propoxyphene, Urine Negative Fentanyl, Urine Negative QC Media Lot # [id number] Lot# Expiration Date Urine Urine specimen obtained by clean catch procedure / Unknown 02/19/2025 3:28 PM EDT Megan COFFEY POINT OF CARE TEST ENTER/EDIT OR DERABLES Final Result * (ABNORMAL) POCT HGB A1C (02/19/2025 2:24 PM EDT) Pathologist [facility] Hemoglobin A1C 6.3(A) 4.0 - 6.0 % QC Media Lot # [id number] Lot# Expiration Date Blood 02/19/2025 2:24 PM EDT Megan Pathak ANP POINT OF CARE TEST ENTER/EDIT OR DERABLES Final Result * POCT Glucose (02/19/2025 2:22 PM EDT) Pathologist [facility] Glucose Blood, POC 92 60 - 200 mg/dL QC Media Lot # [id number] Lot# Expiration Date 892 Blood Capillary blood specimen / Unknown 02/19/2025 2:22 PM EDT Megan COFFEY POINT OF CARE TEST ENTER/EDIT OR DERABLES Final Result documented in this encounter Visit Diagnoses Diagnosis Type 2 diabetes mellitus with hyperlipidemia (CMS/HCC) ([facility])- Primary Screening mammogram for breast cancer manager long term care (current) use of opiate analgesic Food insecurity Anxiety Anxiety state, unspecified Major depressive disorder, recurrent, severe with psychotic features (CMS/HCC) Major depressive disorder, recurrent episode, severe, specified as with psychotic behavior documented in this encounter Additional Health Concerns Assessment Noted Time PHQ-9 Depression Total Score: 17 025 2:18 PM EDT documented as of this encounter Care Teams Rabbit Breeder Relationship Specialty Start Date End Date Megan Pathak ANP [address] [place] [address] PCP - General Family Medicine 02/28/20 [employer] 03/23/24 documented as of this encounter
--- OUTSIDE RECORDS SUMMARY | 2025-02-19 17:32 | XMS_ITS | Encounter Summary ---
Author Organization [facility] [facility] Address [address] [place] [address] Care Team Providers Care Operator Maintainer Name Role Phone Megan Pathak Primary Care Provider [phone] Reason for Visit * Reason Onset Date Comments Call Back Request 01/02/2025 Encounter Details Date Type Department Care Team ([facility] st Contact Info) Description 01/02/2025 Telephone [facility] [address] [place], [place] [phone] Megan Pathak ANP [address] [place], [place] [phone] Call Back Request Social History Tobacco Use Types Packs/Day [...] encounter Miscellaneous Notes * Telephone Encounter - Aniyah Aly - 01/02/2025 10:41 AM EDT Tc from pt requesting a call back to reschedule 12/29 n/s appt. documented in this encounter Plan of Treatment Upcoming Encounters Date Type Department Care Team (Late st Contact Info) Description 02/20/2025 2:30 PM EDT Office Visit [facility] [address] [place] [address] Valentina Brown, OD [address] [place] [address] 03/09/2025 9:30 AM EDT Clinical Support [facility] [address] [place] [address] Giovana Sal RN [address] [place] [address] documented as of this encounter Visit Diagnoses Not on filedocumented in this encounter Additional Health Concerns Assessment Noted Time PHQ-9 Depression Total Score: 2 02/03/20 4:00 PM EDT documented as of this encounter Care Teams Operator Maintainer Relationship Specialty Start Date End Date Megan Pathak ANP [address] [place] [address] PCP - General Family Medicine 02/28/20 [employer] 03/23/24 documented as of this encounter
--- OUTSIDE RECORDS SUMMARY | 2025-02-19 17:32 | XMS_ITS | Encounter Summary ---
Author Organization [facility] Address [address] [place] [address] Care Team Providers Care Causticiser Name Role Phone Delano Reece MD Primary Care Provider Allyssa Thurston, Pcp Primary Care Provider Megan Aguilar NP Primary Care Provider Tremaine jacobo Encounter Details Date Type Department Care Team Description 03/15/2013 Pt. Non Urgent Medic al Question Chiropractic - [address] [address] Brayden Sanchez D.C. Social History Tobacco Use Types Packs/Day Years [...] on filedocumented in this encounter Care Teams Causticiser Relationship Specialty Start Date End Date Delano Reece MD PCP - General Internal Medicine 01/22/13 04/20/18 Bertrand, Pcp PCP - General Internal Medicine 04/21/18 02/24/24 Megan Pathak NP PCP - General Nurse Practioner Adult Health 02/25/24 documented as of this encounter
--- OUTSIDE RECORDS SUMMARY | 2025-02-19 17:32 | XMS_ITS | Encounter Summary ---
Author Organization [employer] [facility] [facility] Address [address] [place] [address] Care Team Providers Care Welder Shielded Metal Arc Name Role Phone Megan Pathak Primary Care Provider [phone] Reason for Visit * Reason Onset Date Comments fyi 02/15/2025 Encounter Details Date Type Department Care Team ([facility] st Contact Info) Description 02/15/2025 Telephone [facility] [address] [place], [place] [phone] Megan Pathak ANP [address] [place], [place] [phone] fy Social History Tobacco Use Types Packs/Day Years [...] the past 12 months, has t he [employer], gas, oil or water [employer] threatened to shut off services in your home? No 02/13/2025 Depression Answer Date Recorded Patient Health Questionnaire-2 Score 0 02/03/2024 Internet Access Answer Date Recorded Internet Access [...] Telephone Encounter - Aislinn Zurita RN - 02/15/2025 10:52 AM EDT Noted. Pt to r/s with podiatry PRN * Telephone Encounter - Aniyah Aly - 02/15/2025 10:46 AM EDT Tc from [place] NANCY to report pt had an appointment with Railroad Car Painter on Wednesday, NANCY asked the pt how it went, she said it was ok but when NANCY contacted the digital art director's office they told her that the pt had not shown up for the appointment. documented in this encounter Plan of Treatment Upcoming Encounters Date Type Department Care Team (Late st Contact Info) Description 02/20/2025 2:30 PM EDT Office Visit [facility] [address] [place] [address] Valentina Brown, OD [address] [place] [address] 03/09/2025 9:30 AM EDT Clinical Support [facility] [address] [place] [address] Giovana Sal, RN [address] [place] [address] documented as of this encounter Visit Diagnoses Not on filedocumented in this encounter Additional Health Concerns Assessment Noted Time PHQ-9 Depression Total Score: 2 02/03/20 24 4:00 PM EDT documented as of this encounter Care Teams Welder Shielded Metal Arc Relationship Specialty Start Date End Date Megan Pathak ANP [address] [place] [address] PCP - General Family Medicine 02/28/20 [employer] 03/23/24 documented as of this encounter
--- OUTSIDE RECORDS SUMMARY | 2025-02-19 17:32 | XMS_ITS | Encounter Summary ---
Author Organization [facility] Address [address] [place] [address] Care Team Providers Care Burlapper Name Role Phone Delano Reece MD Primary Care Provider Allyssa Thurston, Pcp Primary Care Provider Megan Aguilar NP Primary Care Provider Tremaine jacobo Encounter Details Date Type Department Care Team Description 03/16/2013 Pt. Non Urgent Medic al Question Chiropractic - [address] [address] Brayden Sanchez D.C. Social History Tobacco Use [...] on filedocumented in this encounter Care Teams Burlapper Relationship Specialty Start Date End Date Delano Reece MD PCP - General Internal Medicine 01/22/13 04/20/18 Bertrand, Pcp PCP - General Internal Medicine 04/21/18 02/24/24 Megan Pathak NP PCP - General Nurse Practioner Adult Health 02/25/24 documented as of this encounter
--- OUTSIDE RECORDS SUMMARY | 2025-02-19 17:32 | XMS_ITS | Encounter Summary ---
Author Organization [employer] [facility] Address [address] [place] [address] Care Team Providers Care Social Services Counselor Name Role Phone Megan Pathak Primary Care Provider [phone] Reason for Visit * Reason Onset Date Comments Appointment Request 01/19/2025 Encounter Details Date Type Department Care Team ([facility] st Contact Info) Description 01/19/2025 Telephone [facility] [address] [place], [place] [phone] Megan Pathak ANP [address] [place], [place] [phone] Appointment Request Social History Tobacco Use Types Packs/Day [...] encounter Miscellaneous Notes * Telephone Encounter - China Catrer - 01/19/2025 9:15 AM EDT Tc from pt requesting to r/s appt . States missed uber transportation . documented in this encounter Plan of Treatment Upcoming Encounters Date Type Department Care Team (Late st Contact Info) Description 02/20/2025 2:30 PM EDT Office Visit [facility] [address] [place] [address] Valentina Brown, OD [address] [place] [address] 03/09/2025 9:30 AM EDT Clinical Support [facility] [address] [place] [address] Giovana Sal RN [address] [place] [address] documented as of this encounter Visit Diagnoses Not on filedocumented in this encounter Additional Health Concerns Assessment Noted Time PHQ-9 Depression Total Score: 2 02/03/20 24 4:00 PM EDT documented as of this encounter Care Teams Social Services Counselor Relationship Specialty Start Date End Date Megan Pathak ANP [address] [place] [address] PCP - General Family Medicine 02/28/20 [employer] 03/23/24 documented as of this encounter
--- OUTSIDE RECORDS SUMMARY | 2025-02-19 17:32 | XMS_ITS | Encounter Summary ---
Author Organization [employer] [facility] Address [address] [place] [address] Care Team Providers Care Plant Attendant Name Role Phone Megan Pathak Primary Care Provider [phone] Reason for Visit * Reason Onset Date Comments Med Refill 09/04/2024 Encounter Details Date Type Department Care Team ([facility] st Contact Info) Description 09/04/2024 Telephone [facility] [address] [place], [place] [phone] Megan Pathak ANP [address] [place], [place] [phone] Med Refill Social History Tobacco Use Types [...] requesting medication refill. Medications needing refill: HYDROcodone-acetaminophen ([place]) 5-325 MG tablet To be sent to: [facility] - [place], [place] - [address] [place] [address] documented in this encounter Plan of Treatment Upcoming Encounters Date Type Department Care Team ([facility] st Contact Info) Description 02/20/2025 2:30 PM EDT Office Visit [facility] [address] [place] [address] Valentina Brown, OD [address] [place] [address] 03/09/2025 9:30 AM EDT Clinical Support [facility] [address] [place] [address] Giovana Sal, GLORY [address] [place] [address] documented as of this encounter Visit Diagnoses Not on filedocumented in this encounter Additional Health Concerns Assessment Noted Time PHQ-9 Depression Total Score: 2 02/03/20 24 4:00 PM EDT documented as of this encounter Care Teams Plant Attendant Relationship Specialty Start Date End Date Megan Pathak ANP [address] [place] [address] PCP - General Family Medicine 02/28/20 [employer] 03/23/24 documented as of this encounter
--- OUTSIDE RECORDS SUMMARY | 2025-02-19 17:32 | XMS_ITS | Encounter Summary ---
Author Organization [employer] Address [address] [place] [address] Care Team Providers Care Puttier Name Role Phone Megan Pathak Primary Care Provider [phone] Reason for Visit * Reason Onset Date Comments chartprep 02/16/2025 Encounter Details Date Type Department Care Team ([facility] st Contact Info) Description 02/16/2025 Telephone [facility] MEDICINE [address] [place], [place] [phone] Megan Pathak ANP [address] [place], [place] [phone] chartprep Social History Tobacco Use Types Packs/Day Years [...] the past 12 months, has t he [employer], gas, oil or water company threatened to [...] encounter Miscellaneous Notes * Telephone Encounter - Libertad Goodman [place] - 02/16/2025 11:48 AM EDT ..Chart Prep Labs: done Images: not applicable Vaccines due: Hep B Due, PCV20 Due, and Shingles in pharmacy Due Referrals: Not Applicable Screenings: Colonoscopy , Mammogram, Eye Exam, and Foot Exam Overdue care gaps: A1C, Glucose, PQ9, GAD7, Disability , and Oral Health documented in this encounter Plan of Treatment Upcoming Encounters Date Type Department Care Team (Late st Contact Info) Description 02/20/2025 2:30 PM EDT Office Visit [facility] OPTOMETRY [address] [place] [address] Valentina Brown, OD [address] [place] [address] 03/09/2025 9:30 AM EDT Clinical Support [facility] MEDICINE [address] [place] [address] Giovana Sal, GLORY [address] [place] [address] documented as of this encounter Visit Diagnoses Not on filedocumented in this encounter Additional Health Concerns Assessment Noted Time PHQ-9 Depression Total Score: 2 02/03/20 24 4:00 PM EDT documented as of this encounter Care Teams Puttier Relationship Specialty Start Date End Date Megan Pathak ANP [address] [place] [address] PCP - General Family Medicine 02/28/20 [facility] 03/23/24 documented as of this encounter
--- OUTSIDE RECORDS SUMMARY | 2025-02-19 17:32 | XMS_ITS | Encounter Summary ---
Author Organization [employer] Address [address] [place] [address] Care Team Providers Care Mathematics Education Professor Name Role Phone Megan Pathak Primary Care Provider [phone] Reason for Visit * Reason Onset Date Comments Med Refill 05/19/2024 Encounter Details Date Type Department Care Team ([facility] st Contact Info) Description 05/19/2024 Telephone [facility] MEDICINE [address] [place], [place] [phone] Megan Pathak ANP [address] [place], [place] [phone] Med Refill Social History Tobacco Use Types [...] requesting medication refill. Medications needing refill: HYDROcodone-acetaminophen (Dema) 5-325 MG tablet To be sent to: [facility] documented in this encounter Plan of Treatment Upcoming Encounters Date Type Department Care Team (Late st Contact Info) Description 02/20/2025 2:30 PM EDT Office Visit [facility] OPTOMETRY [address] [place] [address] Valentina Brown, OD [address] [place] [address] 03/09/2025 9:30 AM EDT Clinical Support [facility] MEDICINE [address] [place] [address] Giovana Sal, GLORY [address] [place] [address] documented as of this encounter Visit Diagnoses Not on filedocumented in this encounter Additional Health Concerns Assessment Noted Time PHQ-9 Depression Total Score: 2 02/03/20 24 4:00 PM EDT documented as of this encounter Care Teams Mathematics Education Professor Relationship Specialty Start Date End Date Megan Pathak ANP [address] [place] [address] PCP - General Family Medicine 02/28/20 [facility] 03/23/24 documented as of this encounter
--- OUTSIDE RECORDS SUMMARY | 2025-02-19 17:32 | XMS_ITS | Clinical Summary ---
Author Organization [employer] Address [address] [place] [address] Care Team Providers Care Bullet Slugs Inspector Name Role Phone Megan Pathak ERLINDA Primary Care Provider [phone] Allergies Active Allergy Reactions Criticality Noted Date [...] A DAY 100 strip 5 024 Active triamcinolone (Kenalog) 0.1 % creamIndications :Rash Apply topically 2 times daily. 30 g 2 024 Active sertraline (Zoloft) 100 MG tabletIndication s:Major depressive disorder, recurrent, severe with psychotic features (CMS/HCC) Take 1.5 tablets (150 mg) by mouth Once per day. 135 tablet 3 024 Active Blood Pressure kitIndications:E ssential hypertension 1 kit Once per day. 1 kit 024 Active Continuous Glucose Ict Managers (FreeStyle Marie 2 [place]) deviceIndication s:Type 2 diabetes mellitus with hyperlipidemia (CMS/HCC) ([facility]) Scan sensor every 8 hours 1 each 024 Active Continuous Glucose Sensor (FreeStyle Marie 2 Sensor) miscIndications: Type 2 diabetes mellitus with hyperlipidemia (CMS/HCC) ([facility]) Apply 1 sensor every 14 days 2 each Active glucose blood (FreeStyle Precision Nicola Test) test stripIndications :Type 2 diabetes mellitus with hyperlipidemia (CMS/HCC) ([facility]) Use to test blood sugar 5 times daily 100 each 12 024 2024 Active empagliflozin (Jardiance) 10 MGIndications:Ty pe 2 diabetes mellitus with hyperlipidemia (CMS/HCC) ([facility]) Take 1 tablet (10 mg) by [...] MOUTH EVERY MORNING WITH FOOD 90 tablet Active atorvastatin (Lipitor) 80 MG tabletIndication s:Hyperlipidemia , unspecified TAKE 1 TABLET BY MOUTH AT BEDTIME 90 tablet 3 Active Easy Touch Pen Hayes 31G X 8 MM miscIndications: Type 2 diabetes mellitus with other specified complication ([facility]) USE DIRECTED FOUR TIMES DAILY 100 each 11 Active Semaglutide, 2 MG/DOSE, (Ozempic, 2 MG/DOSE,) 8 MG/3ML solution pen-injectorIndi cations:Type 2 diabetes mellitus with hyperlipidemia (CMS/HCC) ([facility]) Inject 0.75 mL (2 mg) under the skin every 7 (seven) days. 3 mL Active amLODIPine (Norvasc) 10 MG tabletIndication s:Essential (primary) hypertension TAKE 1 TABLET BY MOUTH EVERY MORNING 90 tablet Active amitriptyline (Elavil) 150 MG tabletIndication s:Major depressive disorder, recurrent, severe with psychotic features ([facility]) TAKE 1 TABLET BY MOUTH AT BEDTIME 90 tablet Active nystatin (Mycostatin) 372421 UNIT/GM powderIndication s:Intertrigo Apply topically 2 times daily. For 2-4 weeks 60 g 025 2025 Active losartan (Cozaar) 100 MG tabletIndication s:Essential hypertension TAKE 1 TABLET BY MOUTH EVERY MORNING 90 tablet 3 025 Active QUEtiapine (SEROquel) 25 MG tabletIndication s:Major depressive disorder, recurrent, severe with psychotic features (CMS/HCC) Take 1 tablet (25 mg) by mouth at bedtime. 90 tablet 3 025 Active Tresiba FlexTouch 100 UNIT/ML injectionIndicat ions:Type 2 diabetes mellitus with hyperlipidemia (CMS/HCC) (CMS/HCC),Type 2 diabetes mellitus with other specified complication (CMS/HCC) INJECT 36 UNITS SUBCUTANEOUSLY ONCE DAILY 15 mL 2 Active QUEtiapine (SEROquel) 25 MG tabletIndication s:Major depressive disorder, recurrent, severe with psychotic features (CMS/HCC) Take 1 tablet (25 mg) by mouth at bedtime. 90 tablet 3 024 2024 Discontinued(R eorder (will not trigger notification to Pharmacy)) insulin degludec (Tresiba FlexTouch) 100 UNIT/ML injectionIndicat ions:Type 2 diabetes mellitus with hyperlipidemia (CMS/HCC) (CMS/HCC),Type 2 diabetes mellitus with other specified complication (CMS/HCC) Inject 36 Units under the skin Once daily. 15 mL 2 024 2024 Discontinued insulin lispro (HumaLOG) 100 UNIT/ML injectionIndicat ions:Type 2 diabetes mellitus with hyperlipidemia (CMS/HCC) (CMS/HCC) INJECT 10-15 UNITS SUBCUTANEOUSLY THREE TIMES DAILY WITH MEALS PER SLIDING SCALE: [id number]=6 UNITS, 201-250=8 UNITS, 251-300=10 UNITS, 301-350=12 UNITS, 351-400=14 UNITS, >401=16 UNITS 15 mL 3 024 2024 Discontinued HYDROcodone-acet aminophen ([place]) 5-325 MG tabletIndication s:Chronic back pain greater than 3 months duration Take 1 tablet by mouth every 6 (six) hours if needed for severe pain for up to 12 days. 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 Positive for Hormone replacement therapy [...] ordered. She will F/U with her PCP. Stage 3 chronic kidney disease 07/10/2020 Anxiety [...] times): Lab Results Component Value Date BUN 05/03/2020 BUN 05/03/2020 No results found for: EGFR No results found for: MICROALBCREA No results found for: MICROALBCREU Essential hypertension 05/17/2018 Overview (12/07/2023): Losartan 100mg, amlodipine 10mg daily Hyperlipidemia 05/17/2018 Sensorineural hearing loss (SNHL) of both ears 0 10/21/2017 Chronic back pain greater than 3 months duration 09/22/2005 Overview (12/07/2023): W/ h/o spina bifida occulta Recommend heat, stretching, regular exercise Pt on [employer] w/ hydrocodone-APAP 7.5-325 q8 hrs prn pain with goal to taper Resolved Problems Problem Noted Date Diagnosed Date Resolved Date Major depressive disorder, r ecurrent, severe with psychotic features 10/06/2022 02/19/2025 Assessment & Plan (02/03/2024 4:57 PM EDT): Also features of PTSD (flashbacks and nightmares). Insomnia, paranoia, auditory hallucinations of many people talking at the same time. Past hx intense visual hallucinations but none x 20 years. Panic attacks. Racing thoughts. PMH: Chronic pain on [place] 5-325, has Narcan and follows regularly with [employer] monitoring program; DM, Htn, Hyperlipidemia. She is [...] to PCP for continued medication management. Call [facility] with any issues or concerns. All her questions were answered, and she agrees with the plan. Assessment & Plan (12/30/2023 2:35 PM EDT): Also features of PTSD (flashbacks and nightmares). Insomnia, paranoia, auditory hallucinations of many people talking at the same time. Past hx intense visual hallucinations but none x 20 years. Panic attacks. Racing thoughts. PMH: Chronic pain on [place] 5-325, has Narcan and follows regularly with [employer] monitoring program; DM, Htn, Hyperlipidemia. Currently under a great deal of situational stress r/t impending eviction. Chronic illnesses and memory problems. Referring to Care Mgt to see if there is anything that can be done to help with housing and/or DRYING SUPERVISOR support. Despite this, feels her psychiatric medications [...] attacks. Racing thoughts. PMH: Chronic pain on [place] 5-325, has Narcan and follows regularly with [employer] monitoring program; DM, Htn, Hyperlipidemia. Had done [...] attacks. Racing thoughts. PMH: Chronic pain on [place] 5-325, has Narcan and follows regularly with [employer] monitoring program; DM, Htn, Hyperlipidemia. Doing very [...] 2 months. She agrees with the plan. Encounters * This document contains information received from the source organization and may not represent a complete record from that organization. Date Type Department Care Team Description 02/19/2025 2:00 PM EDT Office Visit [facility] MEDICINE [address] [place] [phone] Megan Pathak ANP Type 2 diabetes mellitus with hyperlipidemia (CMS/HCC) (CMS/HCC) (Primary Dx); Screening mammogram for breast cancer; group home (current) use of opiate analgesic; Food insecurity; Anxiety; Major depressive disorder, recurrent, severe with psychotic features (CMS/HCC) 02/19/2025 Travel 02/16/2025 Telephone [facility] MEDICINE [address] [place] [address] Megan Pathak ANP chartprep 02/15/2025 Telephone [facility] MEDICINE [address] [place] [address] Megan Pathak ANP fyi 02/13/2025 Travel 02/13/2025 Patient Outreach [facility] MEDICINE [address] [place] [phone] Megan Pathak ANP Care Coordination (CHW outreach for SDOH housing search-referral completed ) 02/13/2025 Patient Outreach [address] [address] Megan Pathak ANP Pre-visit Planning (SDOH screening positive and Tobacco screening negative) 02/08/2025 Refill [facility] MEDICINE [address] [place] [phone] Megan Pathak ANP Type 2 diabetes mellitus with hyperlipidemia (CMS/HCC) (CMS/HCC); Type 2 diabetes mellitus with other specified complication (CMS/HCC) 02/01/2025 Travel 02/01/[address] [address] Megan Pathak ANP Appointment Request 01/30/2025 Refill [facility] [address] [place] [address] Megan Pathak ANP Major depressive disorder, recurrent, severe with psychotic features (CMS/HCC) 01/25/[address] [address] Megan Pathak ANP Triage 01/22/[address] [address] Megan Pathak ANP Medication Question 01/19/2025 Travel 01/19/2025 Telephone [facility] [address] [place] [address] Giovana Sal, RN 01/19/2025 Telephone [facility] [address] [place] [address] Giovana Sal, RN 01/19/[address] [address] Megan Pathak ANP Appointment Request 01/15/2025 Travel 01/15/2025 Telephone [facility] [address] [place] [address] Giovana Sal, RN 01/09/[address] [address] Megan Pathak ANP Referral 01/03/2025 Telephone [facility] MED & PEDS [address] [place] [address] Giovana Sal, RN Appointment Request 01/02/2025 Telephone [facility] MEDICINE [address] [place] [address] Megan Pathak ANP Call Back Request 01/01/2025 Refill [facility] MED & PEDS [address] [place] [address] Giovana Sal, electrical project engineer back pain greater than 3 months duration 01/01/2025 Telephone [facility] MEDICINE [address] [place] [address] Megan Pathak ANP Med Refill 12/31/2024 Refill [facility] MEDICINE [address] [place] [address] Megan Pathak ANP Essential hypertension 12/29/2024 Telephone [facility] MED [facility] PEDS [address] [place] [address] Giovana Sal, GLORY 12/22/2024 Population Health Risk Score Community [facility] () Department [address] [place] [phone] Provider, Population Health Generic 12/14/2024 Telephone [facility] MEDICINE [address] [place] [address] Aislinn Zurita, RN NTTS 12/13/2024 Telephone [facility] MEDICINE [address] [place] [address] Megan Pathak ANP No Show (Patient no show sick on site ) 12/12/2024 Telephone [facility] MEDICINE [address] [place] [address] Megan Pathak ANP Nurse Triage 12/12/2024 Telephone [facility] MEDICINE [address] [place] [address] Megan Pathak ANP February/March Recall 11/30/2024 Refill [facility] MEDICINE [address] [place] [address] Megan Pathak ANP Chronic back pain greater than 3 months duration 11/28/2024 Telephone [facility] MEDICINE [address] [place] [address] Megan Pathak ANP Nurse Triage 11/22/2024 Telephone [facility] MEDICINE [address] [place] [address] Megan Pathak ANP Nurse Triage from Last 3 Months Immunizations Name Administration [...] the past 12 months, has t he [employer], gas, oil or water [employer] threatened to shut off services in your [...] Pulse 71 02/19/2025 2:16 PM EDT Temperature 36.6 ??C (97.9 ??F) 09/18/2024 3:00 PM ES T Respiratory Rate 16 02/19/2025 2:16 PM EDT Oxygen Saturation 98% 09/18/2024 3:00 PM EST Inhaled Oxygen Concentration - - Weight 77.1 kg (170 lb) 02/19/2025 2:16 PM EDT Height 144.8 cm (4' 9 ) 02/19/2025 2:16 PM EDT Body Mass Index 36.79 02/19/2025 2:16 PM EDT Plan of Treatment Upcoming Encounters Date Type Department Care Team (Late st Contact Info) Description 02/20/2025 2:30 PM EDT Office Visit [facility] OPTOMETRY [address] [place] [address] Kevin, Valentina, OD [address] [place], [place] [phone] 03/09/2025 9:30 AM EDT Clinical Support [facility] MEDICINE [address] [place] [address] Giovana Sal, GLORY [address] [place] [address] Health Maintenance Due Date Last Done Comments [...] (1 of 2) 2022 HPV/Cotest 07/27/2023 07/27/2018 Diabetes: Hemoglobin A1C 08/22/2025 025, 09/18/2024, 03/13/2024, Additional history exists Diabetes: Foot Exam 09/18/2025 09/18/2024, 09/18/2024, 09/18/2024, Additional history exists SDOH Screening 02/13/2026 02/13/2025 Alcohol/Substance Use Screening 02/19/2026 02/19/2025 Depression Screening 02/19/2026 02/19/2025, 02/20/20 25 Tobacco Screening 02/19/2026 02/19/2025 DTaP/Tdap/Td Vaccines (3 - Td or Tdap) [...] DRUG SCREEN Routine 02/19/2025 3:28 PM EDT group home (current) use of opiate analgesic POCT GLYCATED HEMOGLOBIN, TOTAL Routine 02/19/2025 2:24 PM EDT Type 2 diabetes mellitus with hyperlipidemia (CMS/HCC) ([facility]) POCT GLUCOSE Routine 02/19/2025 2:22 PM EDT Type 2 diabetes mellitus with hyperlipidemia (CMS/HCC) ([facility]) HIV 1/2 ANTIGEN/ANTIBODY, FOURTH GENERATION W/RFL Routine 05/03/2020 10:35 AM EDT LIPID PANEL, STANDARD Routine 05/03/2020 10:35 AM EDT ZZZ HISTORICAL HPV MRNA E6/E7 Routine 07/27/2018 3:04 PM EDT from Last 3 Months or Most Recently Relevant to Health Maintenance Results * (ABNORMAL) POCT MICHELLE-14 Urine Drug Screen (02/19/2025 3:28 PM EDT) THC Positive Cocaine Screen, Urine Negative Opiate Screen, Urine Negative Methamphetamine Screen Urine Negative Amphetamine Screen, Urine Negative Benzodiazepines Screen, Urine Negative Barbiturate Screen, Urine Negative Methadone Screen, Urine Negative Buprenophine Screen, Urine Negative TCA, Urine Positive MDMA Urine Negative ng/mL Oxycodone Screen, Urine Negative Phencyclidine (PCP), Urine Negative Propoxyphene, Urine Negative Fentanyl, Urine Negative QC Media Lot # [id number] Lot# Expiration Date Urine Urine specimen obtained by clean catch procedure / Unknown 02/19/2025 3:28 PM EDT [facility] Pathak BANNER POINT OF CARE TEST ENTER/EDIT OR DERABLES Final Result * (ABNORMAL) POCT HGB A1C (02/19/2025 2:24 PM EDT) Hemoglobin A1C 6.3(A) 4.0 - 6.0 % QC Media Lot # [id number] Lot# Expiration Date Blood 02/19/2025 2:24 PM EDT Megan Pathak [facility]ANNER POINT OF CARE TEST ENTER/EDIT OR DERABLES Final Result * POCT Glucose (02/19/2025 2:22 PM EDT) Glucose Blood, POC 92 60 - 200 mg/dL QC Media Lot # [id number] Lot# Expiration Date Blood Capillary blood specimen / Unknown 02/19/2025 2:22 PM EDT Megan Pathak BANNER POINT OF CARE TEST ENTER/EDIT OR DERABLES Final Result * HIV 1/2 ANTIGEN/ANTIBODY,FOURTH GENERATION W/RFL (05/03/2020 10:35 AM EDT) HIV-1/2 ANTIGEN AND ANTIBODIES, 4TH GENERATION W/ REFLEX NON-REACT SILVIA NON-REACT SILVIA [facility] Comment: HIV-1 antigen and HIV-1/HIV-2 [...] ? For additional information please refer to http://education.[employer]/faq/QIJ445 (This link is being provided for informational/ educational purposes only.) ? The performance of this assay has not been clinically validated in patients less than 2 years old. ?? 05/03/2020 10:3 5 AM EDT us Megan [facility] LAB BLOOD ORDERABLES Final Resul t [facility] [address] * (ABNORMAL) LIPID PANEL, STANDARD (05/03/2020 10:35 AM EDT) Cholesterol, Total 249(H) <200 mg/dL [facility] Triglycerides 659(H) <150 mg/dL [facility] Comment: ?? If a non-fasting [...] ?? LDL Cholesterol SEE COMMENT mg/dL (calc) [facility] Comment: ?? LDL cholesterol not calculated. Triglyceride levels greater than 400 mg/dL invalidate calculated LDL results. ?? Reference range: <100 ?? Desirable range <100 mg/dL for primary prevention; ?? <70 mg/dL for patients with CHD or diabetic patients ?? with > or = 2 CHD risk factors. ?? LDL-C is now calculated using the Serena ?? calculation, which is a validated novel method providing ?? better accuracy than the Friedewald equation in the ?? estimation of LDL-C. ?? Christian CHAVIS et al. AMADA. 2013;310(19): 4680-5151 ?? (http://beBetter Health.[employer]/faq/XXH480) Chol/HDLC Ratio 5.0(H) <5.0 (calc) [facility] [...] ?? Christian CHAVIS et al. AMADA. 2013;310(19): 6274-3657 ?? (http://beBetter Health.[employer].Daqi/faq/FSX587) Chol/HDLC Ratio 5.0(H) <5.0 (calc) [facility] [...] 2015;9:129-169. ?? 05/03/2020 10:3 5 AM EDT [facility] BLOOD ORDERABLES Final Resul t [facility] [address] * HPV mRNA E6/E7 (07/27/2018 3:04 PM EDT) HPV mRNA E6/E7 Not Detected NOT DETECTED [facility] Comment: This test was performed using the APTIMA(R) HPV Assay ([employer] This assay detects E6/E7 viral messenger RNA (mRNA) from 14 high-risk HPV types (16,18,31,33,35,39,45,51, 52,56,58,59,66,68). For additional information please refer to: http://education.[employer]/faq/OJK292t8 (This link is being provided for informational/ educational purposes only.) The analytical performance characteristics of this assay have been determined by [employer] [place], [place]. The modifications have not been cleared or approved by the FDA. This assay has been validated pursuant to the CLIA regulations and is used for clinical purposes. Test Performed by [facility] [employer] [place] [place], [address] [place] [address] Hamlet Anguiano M.D., Ph.D., Director of Laboratories , CLIA [id number] Please note: ??Effective 06/22/2016, HPV testing will be performed using [employer]'s APTIMA test which targets mRNA. Detecting mRNA instead of DNA, as in older methods, offers significant improvements in specificity. 07/27/2018 3:04 PM EDT An Farrar CNM HISTORICAL/NON ORDERABLE LABS Final Result [facility] [address] from Last 3 Months or Most Recently Relevant to Health Maintenance Insurance [facility] Care Teams Bullet Slugs Inspector Relationship Specialty Start Date End Date Megan Pathak ANP [address] [place] [phone] PCP - General Family Medicine 02/28/20 [employer] 03/23/24
--- OUTSIDE RECORDS SUMMARY | 2025-02-19 17:32 | XMS_ITS | Encounter Summary ---
Author Organization [employer] Address [address] [place] [address] Care Team Providers Care Sheet Cutter Name Role Phone Zo Megan COFFEY Primary Care Provider Encounter Details Date Type Department Care Team (Latest Contact Info) Description 02/19/2025 Travel Social History Tobacco Use Types Packs/Day Years [...] 02/20/2025 2:30 PM EDT Office Visit [facility] OPTOMETRY [address] [place] [address] Valentina Brown, OD [address] [place] [address] 03/09/2025 9:30 AM EDT Clinical Support [facility] MEDICINE [address] [place] [address] Giovana Sal, GLORY [address] [place] [address] documented as of this encounter Visit Diagnoses Not on filedocumented in this encounter Additional Health Concerns Assessment Noted Time PHQ-9 Depression Total Score: 17 025 2:18 PM EDT documented as of this encounter Care Teams Sheet Cutter Relationship Specialty Start Date End Date Megan Pathak ANP [address] [place] [address] PCP - General Family Medicine 02/28/20 [email or web address] 03/23/24 documented as of this encounter
--- OUTSIDE RECORDS SUMMARY | 2025-02-19 17:32 | XMS_ITS | Encounter Summary ---
Author Organization [employer] Address [address] [place] [address] Care Team Providers Care Driver Education Instructor Name Role Phone Megan Pathak Primary Care Provider [phone] Reason for Visit * Reason Onset Date Comments Med Refill 01/01/2025 Encounter Details Date Type Department Care Team ([facility] st Contact Info) Description 01/01/[address] [facility] MEDICINE [address] [place], [place] [phone] Megan Pathak ANP [address] [place], [place] [phone] Med Refill Social History Tobacco Use Types [...] * Telephone Encounter - Boris Christianson - 01/01/2025 10:11 AM EDT TC from pt requesting medication refill. Medications needing refill: HYDROcodone-acetaminophen (Hatch) 5-325 MG tablet To be sent to: [facility] - [place], [place] - [address] [place] [address] documented in this encounter Plan of Treatment Upcoming Encounters Date Type Department Care Team ([facility] st Contact Info) Description 02/20/2025 2:30 PM EDT Office Visit [facility] OPTOMETRY [address] [place] [address] Valentina Brown, OD [address] [place] [address] 03/09/2025 9:30 AM EDT Clinical Support [facility] MEDICINE [address] [place] [address] Giovana Sal RN [address] [place] [address] documented as of this encounter Visit Diagnoses Not on filedocumented in this encounter Additional Health Concerns Assessment Noted Time PHQ-9 Depression Total Score: 2 02/03/20 24 4:00 PM EDT documented as of this encounter Care Teams Driver Education Instructor Relationship Specialty Start Date End Date Megan Pathak ANP [address] [place] [address] PCP - General Family Medicine 02/28/20 [employer] 03/23/24 documented as of this encounter
[2025-02-19 18:05] LABS: Creatinine Urine 76.14 mg/dL
== END 2025-02-19 17:29 | disposition home or self-care (01) ==
LOC: HO.HHCLNP 17:28
PROVIDERS: Visit Provider Nurse Practitioner Primary Care
DX: E11.69 Type 2 diabetes mellitus with other specified complication (principal); E78.5 Hyperlipidemia, unspecified
CPT/HCPCS: 82043; 82570

== ENCOUNTER 2025-03-09 17:00 | Outpatient (REF) | payer MEDICAID, SELFPAY ==
[2025-03-13 11:21] LABS: Codeine, Ur NEGATIVE; Hydrocodone, Ur 160; Hydromorphone, Ur NEGATIVE; Morphine, Ur NEGATIVE; Oxycodone, Ur NEGATIVE; Oxymorphone, Ur NEGATIVE
[2025-03-13 11:22] LABS: Norhydrocodone, Ur 196; Noroxycodone, Ur NEGATIVE
== END 2025-03-09 17:01 | disposition home or self-care (01) ==
LOC: HO.HHCLNP 17:00
PROVIDERS: Visit Provider Nurse Practitioner Primary Care
DX: M54.9 Dorsalgia, unspecified (principal); G89.29 Other chronic pain
CPT/HCPCS: 80365; G0480

== ENCOUNTER 2025-03-30 08:53 | Outpatient (AMB) | payer MEDICAID, SELFPAY ==
--- NOTE | 2025-03-30 08:58 | A.OFFVIS_ITS ---
Vital Signs 03/30/25 08:59 Height 4 ft 9 in Weight 175 lb BMI 37.9 Intake Visit Reasons: OV - Right Shoulder, Discuss Surgery Intake Note: Annette is a 54 year old right hand dominant female who presents today for a follow up of her right shoulder pain. At her last visit we discussed possible surgery, Reverse Right Total Shoulder Arthroplasty, at the time she wished to think about it prior to booking. Today, she reports that her pain is increasing and unbearable she would like to proceed with surgical intervention Allergies No Known Allergies Allergy (Verified 03/30/25 09:00) HPI HPI OV - Right Shoulder, Discuss Surgery: Details: Annette is a 54 year old right hand dominant female who presents today for a follow up of her right shoulder pain. At her last visit we discussed possible surgery, Reverse Right Total Shoulder Arthroplasty. Her uncontrolled blood sugar has improved as she has been on Ozempic and she feels that she wants to discuss surgery again. She describes numbness and tingling in her arm when it is down by her side. This also includes her shoulder. She states that when she has her shoulder elevated in her hand behind her head that she feels much better. [facility] Surgical History Hx of section Hx of hysterectomy Hx of cholecystectomy History of ear surgery Family History Father Diabetes Hypertension Mother No problems noted. Social History Alcohol intake: never Patient Tobacco Use Status: Current someday Tobacco user Current occupational status: unemployed Physical Exam Vital Signs: BMI result Body Mass Index 37.9 Extrem Other: On exam there is weakness in rotator cuff testing but when she relaxes her arm by her side she states she feels numbness and pain in the forearm. She has a negative drop arm. She has full passive range of motion actively she can abduct to about 70 degrees but then needs assistance to get her hand to her back of her head. Results Reviewed Results Reviewed: I personally reviewed the MR images. EXAMINATION: MR SHOULDER WITHOUT CONTRAST, RIGHT CLINICAL INFORMATION: Right shoulder pain. COMPARISON: MRI 07/17/2021. TECHNIQUE: MRI of the shoulder without contrast was performed on a high-field scanner. FINDINGS: ROTATOR CUFF: The supraspinatus tendon is completely torn and retracted beyond the apex of the humeral head. Near complete tearing of the infraspinatus tendon with some superficial-most posterior fibers remaining intact. This is similar to the previous study. Ill-defined undersurface partial tearing of the distal subscapularis tendon has progressed. Moderate muscle atrophy and mild fatty infiltration of the supraspinatus and infraspinatus muscles, minimally progressed. BICEPS: The biceps tendon is completely torn and retracted. CORACOACROMIAL ARCH: The undersurface of the acromion is curved with no subacromial spur. There is degenerative cyst formation and marrow edema with surrounding soft tissue edema at the origin of the lateral deltoid muscle, which is a new finding. Mild acromioclavicular osteoarthritis. LABRUM/CAPSULE: Degeneration/fraying of the posterior superior labrum. GLENOHUMERAL JOINT/MARROW: Small glenohumeral joint effusion. Small marginal osteophytes along the humeral head and neck junction and spurring of the greater tuberosity anteriorly. The humeral head is slightly subluxed posteriorly and superiorly. MR/MR shoulder RT wo con IMPRESSION: Completely torn and retracted supraspinatus tendon and near complete tearing of the infraspinatus tendon with moderate muscle atrophy and mild fatty infiltration, similar to the previous study. Ill-defined undersurface partial tearing of the distal subscapularis tendon has progressed. Completely torn and retracted biceps tendon. Mild acromioclavicular and glenohumeral joint osteoarthritis with a small joint effusion. There is reactive cyst formation with marrow edema and adjacent soft tissue edema at the lateral aspect of the acromion, at the lateral deltoid origin, which is a new finding. Assessment & Plan Assessment & Plan (1) Rotator cuff arthropathy of right shoulder: Code(s): M12.811 - Other specific arthropathies, not elsewhere classified, right shoulder Category: Medical Plan: This is a 52-year-old who does have a retracted and atrophied right rotator cuff. Her blood sugars better under control but she is still, in my opinion, too young to undergo a reverse total shoulder arthroplasty. In addition are some atypical features to her presentation such as constant pain that is not alleviated with rest and numbness and tingling into the forearm and dorsum of the hand. (2) Right cervical radiculopathy: Code(s): M54.12 - Radiculopathy, cervical region Category: Medical Plan: I think it is reasonable to obtain an MRI of the cervical spine. She complains of weakness, numbness and tingling in the arm. She does have some ipsilateral shoulder pathology but I would hate to miss a radiculopathy when discussing shoulder arthroplasty. If her C-spine is normal we will consider referral to pain management to try to buy time prior to any shoulder surgery. Plan I will order a C-Spine MRI Orders: Orders MR cervical spine wo con Today M54.12 - Radiculopathy, cervical region Coding Level of Care Code Est Pt Level 3 (24684) Complex EM visit Add On G2211 Diagnoses Rotator cuff arthropathy of right shoulder M12.811 Right cervical radiculopathy M54.12
[2025-03-30 08:59] VITALS: BMI 37.9
--- OUTSIDE RECORDS SUMMARY | 2025-03-30 09:00 | XMS_ITS | Encounter Summary ---
Author Organization [facility] Address [address] [place] [address] Care Team Providers Care Electronic Masking System Operator Name Role Phone Delano Reece MD Primary Care Provider Allyssa Thurston, Pcp Primary Care Provider Unavailabl e Megan Pathak NP Primary Care Provider Unavailabl e Reason for Referral * Specialist (Routine) - Authorized/Booked Specialty Diagnoses / Procedures Referred By Melissa roche Referred To Contact Pulmonology Procedures REFERRAL TO PULMONOLOGY Delano Reece MD [address] [place] [address] [place] [address] Referral ID Status Reason Start Date Expiration Date V isits Requested Visits Authorized NOT REQUIRED Authorized/ Booked 01/04/2014 01/04/2015 1 1 Reason for Visit * Reason Onset Date Comments REFERRAL 01/04/2014 Encounter Details Date Type Department Care Team Description 01/04/2014 Telephone [facility] [address] [place] [address] Howard López MD REFERRAL Social History Tobacco [...] hypertension documented in this encounter Care Teams Electronic Masking System Operator Relationship Specialty Start Date End Date Delano Reece MD PCP - General Internal Medicine 01/22/13 04/20/18 [facility], Pcp PCP - General Internal Medicine 04/21/18 02/24/24 Megan Pathak NP PCP - General Nurse Practioner Adult Health 02/25/24 documented as of this encounter
== END 2025-03-30 16:04 | disposition home or self-care (01) ==
LOC: HO.HOS 08:54
PROVIDERS: PCP Nurse Practitioner Primary Care; Visit Provider Orthopaedic Surgery
DX: M12.811 Other specific arthropathies, not elsewhere classified, right shoulder (principal); M54.12 Radiculopathy, cervical region
CPT/HCPCS: 99213

== ENCOUNTER → 2025-03-30 08:53 | Outpatient (BNVA) | payer MEDICAID, SELFPAY | PROVIDERS: PCP Nurse Practitioner Primary Care; Visit Provider Orthopaedic Surgery | DX: M12.811 Other specific arthropathies, not elsewhere classified, right shoulder (principal); M54.12 Radiculopathy, cervical region | CPT/HCPCS: 99212 ==

== ENCOUNTER → 2025-05-11 09:56 | Outpatient (BNV) | payer MEDICAID, SELFPAY | PROVIDERS: PCP Nurse Practitioner Primary Care; Visit Provider Radiology Diagnostic Radiology | DX: M47.812 Spondylosis without myelopathy or radiculopathy, cervical region (principal) | CPT/HCPCS: 72141 ==

== ENCOUNTER 2025-05-11 10:07 | Outpatient (REF) | payer MEDICAID, SELFPAY ==
--- NOTE | ~2025-05-11 | MR_ITS ---
EXAMINATION: MR CERVICAL SPINE WITHOUT CONTRAST CLINICAL INFORMATION: [Radiculopathy, cervical region. COMPARISON: None available. TECHNIQUE: MRI of the cervical spine was obtained using routine sequences without contrast. FINDINGS: Craniocervical junction is intact. No bone marrow STIR signal abnormality. Multilevel marginal osteophyte formation, C4-5 to T1 to. Multilevel decreased intervertebral disc height and signal from C3 to T3. 1 mm anterolisthesis C3-4. 1 mm retrolisthesis C6-7. Cervical spinal cord signal is normal. C2-3: No disc herniation. No neuroforamina stenosis. C3-4: No disc herniation. No neuroforamina stenosis. C4-5: Broad-based disc osteophyte compresses formation resulting in ventral deformity of the thecal sac. No cord compression. No neuroforamina stenosis. C5-6: Left-sided disc osteophyte consummation resulting in ventral deformity of the thecal sac. No cord compression. Left neuroforamina narrowing. C6-7: Broad-based disc osteophyte complex formation abutting the cord resulting in CSF effacement of the thecal sac and the ventral aspect. There is bilateral, right And left neuroforamina and stenosis on a degenerative basis. C7-T1: No disc herniation. No neuroforamina stenosis. T1-T2: No disc herniation. No neuroforamina stenosis.. No prevertebral compartment hematoma, mass or fluid collection. Flow-void signal within the main vessels is normal. Codominant vertebral arteries. Normal position of the cerebellar tonsils. MR/MR cervical spine wo con IMPRESSION: Multilevel spondylosis C4 C7 pronounced at C6-7 resulting in cord compression without cord edema and or myelopathy. Right neuroforamina and stenosis, C6-7 and to a lesser extent left neuroforamina and narrowing at C5-6 on a degenerative basis. Electronically signed by: Loc Florentino MD 05/11/2025 11:06 AM EDT
--- OUTSIDE RECORDS SUMMARY | 2025-05-11 10:17 | XMS_ITS | Clinical Summary ---
Author Organization 175 [facility] Address [address] [place] [address] Phone Care Team Providers Care Cylinder Die Machine Operator Name Role Phone Megan Pathak NP Primary Care Provider [phone] Social History Tobacco Use Types Packs/Day Years Used Date Smoking Tobacco: Never Assessed Comments Unknown Sex and Gender Information Value Date Recorded Sex Assigned at Not on file Legal Sex Female 2:18 PM EST Gender Identity Not on file Sexual Orientation Not on file Plan of Treatment Upcoming Encounters Date Type Department Care Team ([facility] Contact Info) Description 05/29/2025 9:45 AM EDT Office Visit Orthopedic Surgery [facility] [address] [phone] Terry Degroot, DPM [address] [address] Health Maintenance Due Date Last Done Comments [...] 2) 2022 COVID-19 Vaccine ( season) 2024 Depression Screening 10/11/2024 Cholesterol Screening (Lipid Panel) 12/16/2024 Colorectal Cancer Screening: Colonoscopy 12/16/2024 Diabetes: Annual Urine Albumin-Creatinine Ratio (uACR) 12/16/2024 Diabetes: Blood Sugar Control Test (HGBA1C) 12/16/2024 HIV Screening 12/16/2024 Hepatitis C Screening 12/16/2024 Hypertension/CHF/CAD Annual BMP Blood Test 12/16/2024 Social Influencers of Health Screening 12/16/2024 Influenza Vaccine (#1) 2025 6, 07/11/2015, 07/31/2013, Additional history exists DTaP,Tdap,and [...] reviewed with CAD and compared to previous. The breasts are composed of fatty and fibroglandular tissue. No suspicious mass, architectural distortion or suspicious calcifications [...] - [place] Care Teams Cylinder Die Machine Operator Relationship Specialty Start Date End Date Megan Pathak NP [address] [place] [phone] PCP - General 02/15/25
--- OUTSIDE RECORDS SUMMARY | 2025-05-11 10:17 | XMS_ITS | Encounter Summary ---
Author Organization [employer] Address [address] [place] [address] 7[address] [place] [address] Care Team Providers Care Jig Grinder Name Role Phone Megan Pathak Primary Care Provider [phone] Reason for Visit * Reason Onset Date Comments Appointment Request 01/19/2025 Encounter Details Date Type Department Care Team ([facility] st Contact Info) Description 01/19/2025 Telephone [facility] MEDICINE [address] [place], [place] [phone] Megan Pathak ANP [address] [place], [place] [phone] Appointment Request Social History Tobacco Use Types [...] Miscellaneous Notes * Telephone Encounter - China Carter - 01/19/2025 9:15 AM EDT Tc from pt requesting to r/s appt . States missed uber transportation . documented in this encounter Plan of Treatment Upcoming Encounters Date Type Department Care Team ([facility] Contact Info) Description 06/05/2025 11:30 AM EDT Office Visit [facility] MEDICINE [address] [place] [address] Megan Pathak, ERLINDA [address] [place] [address] 07/13/2025 9:00 AM EDT Office Visit [facility] OPTOMETRY [address] [place] [address] Valentina Brown, OD [address] [place] [address] 07/13/2025 10:30 AM EDT Clinical Support [facility] MEDICINE [address] [place] [address] Giovana Sal, RN [address] [place] [address] documented as of this encounter Visit Diagnoses Not on filedocumented in this encounter Additional Health Concerns Assessment Noted Time PHQ-9 Depression Total Score: 2 02/03/20 24 4:00 PM EDT documented as of this encounter Care Teams Jig Grinder Relationship Specialty Start Date End Date Megan Pathak ANP [address] [place] [address] PCP - General Family Medicine 02/28/20 [employer] 03/23/24 documented as of this encounter
== END 2025-05-11 10:08 | disposition home or self-care (01) ==
LOC: HO.MRI 10:07
PROVIDERS: PCP Nurse Practitioner Primary Care; Visit Provider Orthopaedic Surgery
DX: M54.12 Radiculopathy, cervical region (principal)
CPT/HCPCS: 72141

== ENCOUNTER 2025-05-21 10:21 | Outpatient (AMB) | payer MEDICAID, SELFPAY ==
--- NOTE | 2025-05-21 09:22 | A.SPINEOV_ITS ---
Intake Visit Reasons: Neck pain Intake Note: Ms. Kim is here today c/o neck pain. MRI done @ [facility]. Allergies No Known Allergies Allergy (Verified 03/30/25 09:00) Assessment & Plan Assessment & Plan (1) Right cervical radiculopathy: Code(s): M54.12 - Radiculopathy, cervical region Category: Medical Plan Dear Dr. Carr, Thank you for referring Annette to our office today. She is a pleasant 54-year-old female who comes in today for evaluation of neck pain, right shoulder pain, and shooting pains into her right upper extremity. She reports that this has been ongoing for about 3 years, since she sustained a fall at her family's home where she fell directly onto a carpet that was covering a slab of cement. She has been evaluated by your office for consideration of reverse total shoulder arthroplasty. An MRI was obtained after radicular symptoms were observed in clinic, prompting referral to our office. She reports that the pain starts in her posterior neck shoots directly into her right shoulder near the deltoid, travels down the dorsal surface of her arm terminating in her hand. S he reports that her pain is the worst when sitting down on a toilet, and is relieved by resting and stretching her arms above her head. She reports some tingling of her right hand when this occurs, but is unable to identify specific finger involvement. She denies any nocturnal symptoms, and does not experience hand numbness / hand pain. She also denies any issues with dexterity, or bowel/bladder movements. She does report that she has been attempting to treat this over the course of the last few years with [id number] medications, NSAIDs, antipyretics, and more recently prescription medications (currently on Hydrocodone 5-325mg q8h). She states that she has been to physical therapy multiple times and feels it is not been helpful for her. She has not as of yet attempted cortisone injections to mitigate this. PMH: History of ear surgery, Hx of section, Hx of cholecystectomy, Hx of hysterectomy. Depression, Hypertension, T2DM (Reports her last A1C was around 5.5). Social hx: NKDA Medications: See [employer] list. Allergies: NKDA Physical exam: The patient has 4/5 strength with bilateral triceps testing, slightly worse on the right-hand side versus the left. The rest of her upper extremity strength is 5/5. Her lower extremity strength is 5/5. She ambulates well with a non spastic nonantalgic gait and uses no assistive devices to ambulate. Her reflexes are 2+ intact diffusely. (-) Lhermitte's, (-) Brar's, (-) clonus, (-) Babinski's. Imaging review: MRI of the cervical spine completed here at [facility] shows straightening of the normal cervical lordosis, and diffuse spondylosis of the cervical spine. There is most notably a posterior disc bulge/osteophyte complex at C6-7 causing mild effacement of the ventral surface of the cord, and moderate-severe right-sided foraminal stenosis. There is fairly significant disc degeneration evident at C5-6 and C6-7. No evidence of T2 / STIR signal change or myelomalacia. Impression: Annette is a pleasant 54-year-old female who comes in today for evaluation at 3 years of neck pain and shooting pains into her right shoulder and arm. She reports that the pain has slowly worsened over the years ever since the identified inciting incident of a fall sustained at her family's home. She has attempted several forms of conservative management for this issue without significant relief of her symptoms. Her clinical picture is most consistent with a cervical radiculopathy as a result of the right-sided foraminal stenosis seen at C6-7, which is compounded by her known right shoulder pathology. We discussed the continuum of treatment options for this issue. She would like to attempted cortisone injections before considering surgical intervention to resolve this issue. I believe this is reasonable in the absence of cord signal change, myelomalacia, or myelopathic reflexes. My only concern regarding this is that she has some low-grade triceps weakness, which may be related to her shoulder issues. I would like to see her back in clinic after she has her injections with our colleagues in pain management for re-evaluation. If the injections provide her with good relief of her pain, she may continue to do these for the time being. If the injections are not helpful we may need to consider either right C7 foraminotomy or C6-7 ACDF. Before following through with this we should obtain CT scan of her neck when she is re-evaluated as the MRI reports describes the impingement at C6-7 as a disc/osteophyte complex. Thank you for allowing us to care for your patient. The total time spent with this visit with this patient was 45 minutes reviewing history, physical exam, MRI imaging review, and implementation of treatment plan or further diagnostic testing Ace Craven MD,PhD [facility] Coding Level of Care Code New Pt Level 4 (34821) Diagnoses Right cervical radiculopathy M54.12
--- OUTSIDE RECORDS SUMMARY | 2025-05-21 10:58 | XMS_ITS | Clinical Summary ---
Author Organization [facility] Address [address] [place] [address] Phone Care Team Providers Care Postal Supervisor Name Role Phone Megan Pathak NP Primary Care Provider [phone] Social History Tobacco Use Types Packs/Day Years Used Date Smoking Tobacco: Never Assessed Comments Unknown Sex and Gender Information Value Date Recorded Sex Assigned at Not on file Legal Sex Female 2:18 PM EST Gender Identity Not on file Sexual Orientation Not on file Plan of Treatment Upcoming Encounters Date Type Department Care Team ([facility] Contact Info) Description 05/29/2025 9:45 AM EDT Office Visit Orthopedic Surgery [facility] [address] [phone] Terry Degroot, DPM [address] [address] Health Maintenance Due Date Last Done Comments [...] - [place] Care Teams Postal Supervisor Relationship Specialty Start Date End Date Megan Pahtak NP [address] [place] [phone] PCP - General 02/15/25
--- OUTSIDE RECORDS SUMMARY | 2025-05-21 10:58 | XMS_ITS | Encounter Summary ---
Author Organization [employer] Address [address] [place] [address] 7[address] [place] [address] Care Team Providers Care Fence Machine Operator Name Role Phone Megan Pathak Primary Care Provider [phone] Reason for Visit * Reason Onset Date Comments Appointment Request 01/19/2025 Encounter Details Date Type Department Care Team ([facility] st Contact Info) Description 01/19/2025 Telephone [facility] MEDICINE [address] [place], [place] [phone] Megan Pathak ANP [address] [place], [place] [phone] Appointment Request Social History Tobacco Use Types [...] Description 06/05/2025 11:30 AM EDT Office Visit [facility] MEDICINE [address] [place] [address] Megan Pathak, ERLINDA [address] [place] [address] 07/13/2025 9:00 AM EDT Office Visit [facility] OPTOMETRY [address] [place] [address] Valentina Brown, OD [address] [place] [address] 07/13/2025 10:30 AM EDT Clinical Support [facility] MEDICINE [address] [place] [address] Giovana Sal, RN [address] [place] [address] documented as of this encounter Visit Diagnoses Not on filedocumented in this encounter Additional Health Concerns Assessment Noted Time PHQ-9 Depression Total Score: 2 02/03/20 24 4:00 PM EDT documented as of this encounter Care Teams Fence Machine Operator Relationship Specialty Start Date End Date Megan Pathak ANP [address] [place] [address] PCP - General Family Medicine 02/28/20 [employer] 03/23/24 documented as of this encounter
== END 2025-05-21 11:12 | disposition home or self-care (01) ==
LOC: HO.HNS 10:22
PROVIDERS: PCP Nurse Practitioner Primary Care; Referring Provider Orthopaedic Surgery; Visit Provider Physician Assistant
DX: M54.12 Radiculopathy, cervical region (principal)
CPT/HCPCS: 99204

== ENCOUNTER → 2025-05-21 10:21 | Outpatient (BNVA) | payer MEDICAID, SELFPAY | PROVIDERS: PCP Nurse Practitioner Primary Care; Referring Provider Orthopaedic Surgery; Visit Provider Physician Assistant | DX: M54.12 Radiculopathy, cervical region (principal) | CPT/HCPCS: 99212 ==